=== PATIENT | male | born 1980 | race Hispanic/Latino ===

== ENCOUNTER 2019-01-25 13:00 | Emergency (ER) | payer BC, OTHER ==
[2019-01-25] MEDS ORDERED: LIDOCAINE 1% MPF 5 ML VIAL ONE (13:48)
[2019-01-25] MEDS ORDERED: TETANUS & DIPHTHERIA TOX,ADULT 0.5 ML VIAL ONE (13:49)
[2019-01-25] MEDS ORDERED: HYDROCODONE/APAP 5/325 MG TAB ONE (13:49)
--- NOTE | 2019-01-25 14:29 | ER ---
Nurse's Notes [facility] Name: Orlando Peralta Age: 38 yrs Sex: Male : 1980 Arrival Date: 01/25/2019 Time: 13:01 Bed 13 Private MD: Diagnosis: Phlegmon of back Presentation: 01/25 13:02 Presenting complaint: Patient states: Abscess on back x 3 months. Transition of care: jl7 patient was not received from another setting of care. Onset of symptoms was November 2018. Risk Assessment: Do you want to hurt yourself or someone else? Patient reports no desire to harm self or others. Initial Sepsis Screen: Does the patient meet any 2 criteria? No. Patient's initial sepsis screen is negative. Does the patient have a suspected source of infection? No. Patient's initial sepsis screen is negative. Care prior to arrival: None. 13:02 Method Of Arrival: Ambulatory [facility] 13:02 Acuity: JANUSZ 4 jl7 Triage Assessment: 13:03 General: Appears in no apparent distress. uncomfortable, Behavior is calm, cooperative, jl7 appropriate for age. Pain: Complains of pain in back Pain currently is 10 out of 10 on a pain scale. Historical: - Allergies: 13:03 No Known Allergies; jl7 - Home Meds: 13:03 None [Active]; jl7 - PMHx: 13:03 None; jl7 - PSHx: 13:03 cranium 1998; jl7 - Immunization history:: Adult Immunizations not up to date. - Social history:: Smoking status: Patient/guardian denies using tobacco. - Ebola Screening: : No symptoms or risks identified at this time. Screenin:45 Abuse screen: Denies threats or abuse. Denies injuries from another. Nutritional aj1 screening: No deficits noted. Tuberculosis screening: No symptoms or risk factors identified. Fall Risk None identified. Assessment: 13:45 General: Appears in no apparent distress. comfortable, Behavior is calm, cooperative, aj1 appropriate for age. Pain: Complains of pain in back. Neuro: Level of Consciousness is awake, alert, obeys commands. Cardiovascular: Patient's skin is warm and dry. Respiratory: Airway is patent Respiratory effort is even, unlabored, Respiratory pattern is regular, symmetrical. GI: No signs and/or symptoms were reported involving the gastrointestinal system. : No signs and/or symptoms were reported regarding the genitourinary system. EENT: No signs and/or symptoms were reported regarding the EENT system. Derm: Abscess located on back. Musculoskeletal: No signs and/or symptoms reported regarding the musculoskeletal system. Circulation, motion, and sensation intact. Vital Signs: 13:03 BP 123 / 75; Pulse 96; Resp 17 S; Temp 98.6(O); Pulse Ox 100% on R/A; Weight 127.01 kg jl7 (R); Height 5 ft. 10 in. (177.80 cm) (R); Pain 10/10; 13:03 Body Mass Index 40.18 (127.01 kg, 177.80 cm) jl7 ED Course: 13:01 Patient arrived in ED. as 13:02 Triage completed. jl7 13:03 Arm band placed on right wrist. jl7 13:04 Maxime Tsai NP is PHCP. pm1 13:04 Tyrone Magaña MD is Attending Physician. pm1 13:24 Kathi Alba RN is Primary Nurse. aj1 13:45 No provider procedures requiring assistance completed. aj1 13:51 Wound care: I AND D SETUP. mh5 13:52 Patient has correct armband on for positive identification. Bed in low position. Pulse mh5 ox on. NIBP on. 15:40 Patient did not have IV access during this emergency room visit. 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 Exp: aj1 07/17/2020. Lot #: [id number]. } Route: IM; Site: right deltoid; 14:48 Follow up: Response: No adverse reaction aj1 13:51 Drug: [place] 5 mg-325 mg 1 tabs Route: PO; aj1 14:48 Follow up: Response: No adverse reaction; RASS: Alert and Calm (0) aj1 14:00 Drug: Lidocaine (1 %) 5 ml {Note: administered by Brennan Tsai NP.} Volume: 5 ml; Route: aj1 Infiltration; 14:48 Follow up: Response: No adverse reaction aj Outcome: 14:28 Discharge ordered by . pm1 15:41 Discharged to home ambulatory, with family. iw 15:41 Condition: good 15:41 Discharge instructions given to patient, family, Instructed on discharge instructions, follow up and referral plans. medication usage, Demonstrated understanding of instructions, follow-up care, medications, Prescriptions given X 2. 15:41 Patient left the ED. iw Signatures: Kathi Alba, RN RN aj1 Carmen Holguin Irene, RN RN iw Maxime Tsai, OUTBOARD MOTOR TESTER OUTBOARD MOTOR TESTER pm1 Elisa Holguin 5 Patricio Renee RN RN jl7
--- NOTE | 2019-01-25 14:29 | EDPHYS ---
Physician Documentation [facility] Name: Orlando Peralta Age: 38 yrs Sex: Male : 1980 Arrival Date: 01/25/2019 Time: 13:01 Bed 13 Private MD: ED Physician Tyrone Magaña HPI: 01/25 14:06 This 38 yrs old Male presents to ER via Ambulatory with complaints of lump on pm1 back. 14:06 the patient presents with a swollen area of the back. Description: raised. pm1 14:06 Onset: The symptoms/episode began/occurred 3 month(s) ago, and became worse yesterday. pm1 Possible cause(s): unknown. Associated signs and symptoms: Pertinent negatives: discharge, drainage, fever. Modifying factors: the symptoms are alleviated by nothing, the symptoms are aggravated by touching. Severity of symptoms: in the emergency department the symptoms are actually worse. Has had the abscess drained in the past and it came out like cottage cheese. Possibly sebaceous cyst. The patient has not recently seen a physician. Historical: - Allergies: 13:03 No Known Allergies; jl7 - Home Meds: 13:03 None [Active]; jl7 - PMHx: 13:03 None; jl7 - PSHx: 13:03 cranium 1997; jl7 - Immunization history:: Adult Immunizations not up to date. - Social history:: Smoking status: Patient/guardian denies using tobacco. - Ebola Screening: : No symptoms or risks identified at this time. ROS: 14:06 Constitutional: Negative for fever, chills, and weight loss, Neck: Negative for injury, pm1 pain, and swelling, Cardiovascular: Negative for chest pain, palpitations, and edema, Respiratory: Negative for shortness of breath, cough, wheezing, and pleuritic chest pain, Abdomen/GI: Negative for abdominal pain, nausea, vomiting, diarrhea, and constipation, Back: Negative for injury and pain, MS/Extremity: Negative for injury and deformity. 14:06 Neuro: Negative for headache, weakness, numbness, tingling, and seizure. 14:06 Skin: Positive for abscess, of the back. Exam: 14:06 Constitutional: This is a well developed, well nourished patient who is awake, alert, pm1 and in no acute distress. Head/Face: Normocephalic, atraumatic. 14:06 Neck: Trachea midline, no thyromegaly or masses palpated, and no cervical pm1 lymphadenopathy. Supple, full range of motion without nuchal rigidity, or vertebral point tenderness. No Meningismus. Chest/axilla: Normal chest wall appearance and motion. Nontender with no deformity. No lesions are appreciated. Cardiovascular: Regular rate and rhythm with a normal S1 and S2. No gallops, murmurs, or rubs. Normal PMI, no JVD. No pulse deficits. Respiratory: Lungs have equal breath sounds bilaterally, clear to auscultation and percussion. No rales, rhonchi or wheezes noted. No increased work of breathing, no retractions or nasal flaring. Abdomen/GI: Soft, non-tender, with normal bowel sounds. No distension or tympany. No guarding or rebound. No evidence of tenderness throughout. 14:06 Back: ROM is normal, normal spinal alignment noted. 14:06 Skin: Appearance: normal except for affected area, cellulitis, is not appreciated, phlegmon 2 cm diameter to right side of upper back. 14:06 Neuro: Orientation: is normal, Motor: is normal, moves all fours, Gait: is steady, at a normal pace, without difficulty. Vital Signs: 13:03 BP 123 / 75; Pulse 96; Resp 17 S; Temp 98.6(O); Pulse Ox 100% on R/A; Weight 127.01 kg jl7 (R); Height 5 ft. 10 in. (177.80 cm) (R); Pain 10/10; 13:03 Body Mass Index 40.18 (127.01 kg, 177.80 cm) jl7 MDM: 13:05 Patient medically screened. ibeth 13:05 Patient medically screened. [facility] 14:24 Data reviewed: vital signs. Data interpreted: Pulse oximetry: on room air is 100 %. pm1 Interpretation: normal. 14:24 ED course: Area cleansed with Betadine and lidocaine injected into area. Needle pm1 aspiration along phlegmon resulted in no purulent drainage. Incision and drainage is not indicated. Will discharge the patient home with antibiotics and referral to general surgeon. 14:24 Counseling: I had a detailed discussion with the patient and/or guardian regarding: the pm1 historical points, exam findings, and any diagnostic results supporting the discharge/admit diagnosis, the need for outpatient follow up, to return to the emergency department if symptoms worsen or persist or if there are any questions or concerns that arise at home. 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 Exp: aj1 07/17/2020. Lot #: [id number]. } Route: IM; Site: right deltoid; 14:48 Follow up: Response: No adverse reaction aj1 13:51 Drug: [place] 5 mg-325 mg 1 tabs Route: PO; aj1 14:48 Follow up: Response: No adverse reaction; RASS: Alert and Calm (0) aj 14:00 Drug: Lidocaine (1 %) 5 ml {Note: administered by Brennan Tsai NP.} Volume: 5 ml; Route: aj1 Infiltration; 14:48 Follow up: Response: No adverse reaction aj Disposition: 01/26 10:31 Co-signature as Attending Physician, Tyrone Magaña MD I agree with the assessment and ibeth plan of care. Disposition: 01/25/19 14:28 Discharged to Home. Impression: Phlegmon of back. - Condition is Stable. - Discharge Instructions: Cellulitis, Adult. - Prescriptions for Tylenol- Codeine #3 300-30 mg Oral Tablet - take 2 tablets by ORAL route every 6 hours As needed; 20 tablet. Bactrim DS 800- 160 mg Oral Tablet - take 1 tablet by ORAL route every 12 hours for 10 days; 20 tablet. - Work release form, Medication Reconciliation Form, Thank You Letter, Antibiotic Education, Prescription Opioid Use form. - Follow up: Emergency Department; When: As needed; Reason: Worsening of condition. Follow up: Private Physician; When: 2 - 3 days; Reason: Recheck today's complaints, Continuance of care, Re-evaluation by your physician. - Problem is new. - Symptoms have improved. Signatures: Kathi Alba RN RN aj1 Tyrone Magaña MD MD cha Williams, Irene, RN RN iw Marinas, Patrick, NP SENIOR MECHANICAL ENGINEER pm1 Patricio Renee RN RN jl7 Corrections: (The following items were deleted from the chart) 01/25 15:41 14:28 01/25/2019 14:28 Discharged to Home. Impression: Phlegmon of back. Condition is iw Stable. Forms are Medication Reconciliation Form, Thank You Letter, Antibiotic Education, Prescription Opioid Use. Follow up: Emergency Department; When: As needed; Reason: Worsening of condition. Follow up: Private Physician; When: 2 - 3 days; Reason: Recheck today's complaints, Continuance of care, Re-evaluation by your physician. Problem is new. Symptoms have improved. pm1
[2019-01-25 15:52] VITALS: BP 123/75; TEMP 98.6; O2SAT 100
== END 2019-01-25 15:41 | disposition home or self-care (01) ==
LOC: ER 13:00
DX: L02.212 Cutaneous abscess of back [any part, except buttock and flank] (principal); Z23 Encounter for immunization
CPT/HCPCS: 90471; 90714; 99284

== ENCOUNTER 2019-01-30 13:04 | Day surgery (SDC) | payer BC ==
[2019-01-30 13:22] LABS: Absolute Lymphocytes (CBC) 0.9 K/uL (0.7-4.9); Basophils % 1.1 % (0-1.3); Hematocrit 45.8 % (39.6-49.0); Lymphocytes % 17.6 % (15.3-44.8); MPV 8.7 fL (7.6-11.3); RBC Red Blood Cell Count 5.28 M/uL (4.33-5.43)
[2019-01-30] MEDS ORDERED: Ringers Lactate 1,000 ML IV ONE (13:33)
[2019-01-30 13:36] LABS: Potassium 4.5 mmol/L (3.5-5.1)
[2019-01-30] MEDS: CEFAZOLIN/SWI 1gm 1 GM/10 ML SYR ONE ×3 (14:03→14:23)
[2019-01-30] MEDS ORDERED: propofoL 200 MG/20 ML VIAL IV ONE (14:16)
[2019-01-30] MEDS ORDERED: LIDOCAINE 1% MPF 2 ML AMPULE ONE (14:16)
[2019-01-30] MEDS ORDERED: FENTANYL CITR 100 MCG/2 ML ONE (14:19)
--- NOTE | 2019-01-30 14:42 | P.BOP ---
Preoperative diagnosis: infected back subq mass with cellulitis and abscess Postoperative diagnosis: same Primary procedure: Excisional biopsy of infected back subq mass with abscess drainage Estimated blood loss: <10cc Specimen: infected back subq mass Findings: infected back subq mass with abscess Anesthesia: General Complications: None Drain(s): Other (wet to dry NS) Transferred to: Recovery Room Condition: Good
[2019-01-30] MEDS ORDERED: ONDANSETRON 4 MG/2 ML VIAL ONE (14:50)
[2019-01-30] MEDS ORDERED: HYDROCODONE/APAP 7.5/325 MG TAB ONE (15:29)
[2019-01-30 15:55] VITALS: BP 144/77; TEMP 98.3; O2SAT 98
--- NOTE | 2019-01-31 01:07 | OP ---
Date of Procedure: 01/30/2019 Surgeon: Sánchez Holguin MD Preoperative Diagnosis: Infected back subcutaneous mass with cellulitis and abscess. Postoperative Diagnosis: Infected back subcutaneous mass with cellulitis and abscess. Procedure Performed: Excisional biopsy of infected back subcutaneous mass with abscess drainage. Anesthesia: General plus local. Packing: Wet-to-dry. Indications: This is the case of a 38-year-old patient, who comes to us with a large mass in the [place] k with erythema, redness, fluctuance consistent with cellulitis and abscess. The benefits, alternati ves, and risks of excision were fully explained, which include, but are not limited to infection, ble eding. The patient understood signed the consent. Description Of Procedure: Patient was brought to the operating room, placed in supine position. Ane sthesia was done without complication. The patient was placed in lateral decubitus position with pro per protection. The area of concern was previously marked by me and the patient. A time-out was coco led. An incision was made on the skin to include the necrotic devitalized tissue. Since pus was com ing through the area, we proceeded to do a culture in that area after we made an incision. The mass was completely excised, abscess was drained with multiple loculations. Hemostasis was obtained and t he area was packed with wet-to-dry dressing. Patient tolerated the procedure well. Patient was sent to recovery in sta ble condition. SANTHOSH/COLLEEN Voice ID: [id number] Report ID: [id number]
--- NOTE | 2019-01-31 01:13 | DS ---
Date of Discharge: 01/30/2019 Preoperative Diagnosis: Infected back subcutaneous mass with abscess and cellulitis. Postoperative Diagnosis: Infected back subcutaneous mass with abscess and cellulitis. Disposition: Home. Activity: As tolerated. No heavy lifting. Followup: Follow up in my office in 1 week. Call for appointment, [phone]. Keep the area dry unti l tomorrow, then may shower with the dressings off, and then pack the area with wet-to-dry dressings. Medications: Include, Tylenol No. 3 q.4 hours p.r.n. pain. Patient will resume Bactrim. We are goi ng to give him also a prescription for normal saline. SANTHOSH/COLLEEN Voice ID: [id number] Report ID: [id number]
== END 2019-01-30 16:04 | disposition home or self-care (01) ==
LOC: OR 13:04
PROVIDERS: ATTEND Surgery
PROC: 0JB70ZZ Excision of Back Subcutaneous Tissue and Fascia, Open Approach (ICD-10-PCS; principal; 2019-01-30 14:30)
DX: L72.0 Epidermal cyst (principal); L02.212 Cutaneous abscess of back [any part, except buttock and flank]; L03.312 Cellulitis of back [any part except buttock and flank]; Z82.49 Family history of ischemic heart disease and other diseases of the circulatory system
CPT/HCPCS: 87070; 85025; 80048; 36415; 87205; 88304; 87075; 11406; J2704; J3010; J2001; J0690; J7120; J2405; 88305

== ENCOUNTER 2019-01-31 18:49 | Emergency (ER) | payer BC ==
[2019-01-31] MEDS ORDERED: SILVER NITRATE 1 APPL TOP ONE ×2 (19:42→19:44)
[2019-01-31] MEDS ORDERED: SILVER SULFADIAZINE 1% 25 GM TOP ONE (19:42)
--- NOTE | 2019-01-31 20:17 | ER ---
Nurse's Notes [facility] Name: Orlando Peralta Age: 38 yrs Sex: Male : 1980 Arrival Date: 01/31/2019 Time: 18:52 Bed 25 Private MD: Sarath Hall R Diagnosis: Sebaceous cyst-site removal, bleeding, cauterized and opacked Presentation: 01/31 18:53 Presenting complaint: Patient states: He had an I\T\D done of his back yesterday, today aj1 while he was in the shower his drsg fell off and his not been able to control the bleeding since. Transition of care: patient was not received from another setting of care. Onset of symptoms was January 31, 2019. Risk Assessment: Do you want to hurt yourself or someone else? Patient reports no desire to harm self or others. Initial Sepsis Screen: Does the patient meet any 2 criteria? No. Patient's initial sepsis screen is negative. Does the patient have a suspected source of infection? No. Patient's initial sepsis screen is negative. Care prior to arrival: None. 18:53 Method Of Arrival: Ambulatory aj1 18:53 Acuity: JANUSZ 4 aj1 Triage Assessment: 19:08 General: Appears in no apparent distress. comfortable, Behavior is calm, cooperative, aj1 appropriate for age. Pain: Complains of pain in back. Neuro: Level of Consciousness is awake, alert, obeys commands. Cardiovascular: Patient's skin is warm and dry. Respiratory: Airway is patent Respiratory effort is even, unlabored, Respiratory pattern is regular, symmetrical. Historical: - Allergies: 19:08 No Known Allergies; aj1 - Home Meds: 19:08 Tylenol #3 Oral [Active]; Bactrim DS Oral [Active]; aj1 - PMHx: 19:08 None; aj1 - Immunization history:: Adult Immunizations up to date. - Social history:: Smoking status: Patient/guardian denies using tobacco. - Ebola Screening: : Patient denies travel to an Ebola-affected area in the 21 days before illness onset. - Family history:: not pertinent. Screenin:20 Abuse screen: Denies threats or abuse. Denies injuries from another. Nutritional rr5 screening: No deficits noted. Tuberculosis screening: No symptoms or risk factors identified. Fall Risk None identified. Total Rader Fall Scale indicates No Risk (0-24 pts). Assessment: 19:20 General: Appears in no apparent distress. comfortable, Behavior is calm, cooperative, rr5 appropriate for age. Pain: Complains of pain in thoracic area Pain does not radiate. Pain currently is 2 out of 10 on a pain scale. Quality of pain is described as aching, Pain began 1 day ago. Is intermittent. Neuro: Level of Consciousness is awake, alert, obeys commands, Oriented to person, place, time, situation, Appropriate for age. Cardiovascular: Capillary refill < 3 seconds Patient's skin is warm and dry. Respiratory: Airway is patent Respiratory effort is even, unlabored, Respiratory pattern is regular, symmetrical. GI: No signs and/or symptoms were reported involving the gastrointestinal system. : No signs and/or symptoms were reported regarding the genitourinary system. EENT: No signs and/or symptoms were reported regarding the EENT system. Derm: Wound noted thoracic area Wound is post I and D yesterday open wound approximate size 6cm round in size. 19:20 Musculoskeletal: Circulation, motion, and sensation intact. Capillary refill < 3 rr5 seconds. 20:38 Reassessment: Patient appears in no apparent distress at this time. Patient is alert, rr5 oriented x 3, equal unlabored respirations, skin warm/dry/pink. discharge instruction given and explained without complaints made. Patient states feeling better. Patient states symptoms have improved. Vital Signs: 19:08 BP 117 / 80; Pulse 89; Resp 18; Temp 98.1; Pulse Ox 98% on R/A; Weight 125.65 kg (R); aj1 Height 5 ft. 10 in. (177.80 cm) (R); Pain 2/10; 20:35 BP 112 / 75; Pulse 80; Resp 16; Temp 97.9; Pulse Ox 99% ; rr5 19:08 Body Mass Index 39.74 (125.65 kg, 177.80 cm) [facility] ED Course: 18:52 Patient arrived in ED. mr 18:52 Sarath Hall MD is Private Physician. mr 19:07 Triage completed. aj1 19:08 Arm band placed on. aj 19:20 Tyrone Magaña MD is Attending Physician. [facility] 19:20 Patient has correct armband on for positive identification. Bed in low position. Call rr5 light in reach. 19:21 Manan Kelly, RN is Primary Nurse. rr5 19:45 wound cleaning and dressing silver nitrite and Surgicel applied by ED provider. rr5 pressure dressing applied. 20:16 Sánchez Holguin MD is Referral Physician. ibeth 20:40 Patient did not have IV access during this emergency room visit. rr5 Administered Medications: 20:32 Drug: [place] 10 mg-325 mg 1 tabs {Note: rass 0.} Route: PO; rr5 20:41 Follow up: Response: Medication administered at discharge. rr5 20:42 Follow up: Response: RASS: Alert and Calm (0) rr5 20:32 Drug: KeFLEX 500 mg Route: PO; rr5 20:42 Follow up: Response: Medication administered at discharge. rr5 Outcome: 20:17 Discharge ordered by . ibeth 20:40 Discharged to home ambulatory, with family. rr5 20:40 Condition: stable 20:40 Discharge instructions given to patient, family, Instructed on discharge instructions, follow up and referral plans. medication usage, Demonstrated understanding of instructions, follow-up care, medications, wound care, Prescriptions given X 1. 20:43 Patient left the ED. rr5 Signatures: Kathi Alba RN RN aj1 Tyrone Magaña MD MD cha Rivera, Mary mr Manan Kelly, RN RN rr5
--- NOTE | 2019-01-31 20:18 | EDPHYS ---
Physician Documentation [facility] Name: Orlando Peralta Age: 38 yrs Sex: Male : 1980 Arrival Date: 01/31/2019 Time: 18:52 Bed 25 Private MD: Sarath Hall R ED Physician Tyrone Magaña HPI: 01/31 20:14 This 38 yrs old Male presents to ER via Ambulatory with complaints of Surgical ibeth site bleeding. 20:14 The patient has a laceration related to: surgical wound x 1 day. Onset: The ibeth symptoms/episode began/occurred yesterday. Associated signs and symptoms: The patient has no apparent associated signs or symptoms. The patient has not experienced similar symptoms in the past. sebaceous cyst, removed x 1 day ago. Historical: - Allergies: 19:08 No Known Allergies; aj1 - Home Meds: 19:08 Tylenol #3 Oral [Active]; Bactrim DS Oral [Active]; aj1 - PMHx: 19:08 None; aj1 - Immunization history:: Adult Immunizations up to date. - Social history:: Smoking status: Patient/guardian denies using tobacco. - Ebola Screening: : Patient denies travel to an Ebola-affected area in the 21 days before illness onset. - Family history:: not pertinent. ROS: 20:14 Constitutional: Negative for fever, chills, and weight loss, Eyes: Negative for injury, ibeth pain, redness, and discharge, ENT: Negative for injury, pain, and discharge, Neck: Negative for injury, pain, and swelling, Cardiovascular: Negative for chest pain, palpitations, and edema, Respiratory: Negative for shortness of breath, cough, wheezing, and pleuritic chest pain, Abdomen/GI: Negative for abdominal pain, nausea, vomiting, diarrhea, and constipation, : Negative for injury, bleeding, discharge, and swelling, MS/Extremity: Negative for injury and deformity, Skin: Negative for injury, rash, and discoloration, Neuro: Negative for headache, weakness, numbness, tingling, and seizure, Psych: Negative for depression, anxiety, suicide ideation, homicidal ideation, and hallucinations, Allergy/Immunology: Negative for hives, rash, and allergies, Endocrine: Negative for neck swelling, polydipsia, polyuria, polyphagia, and marked weight changes, Hematologic/Lymphatic: Negative for swollen nodes, abnormal bleeding, and unusual bruising. 20:14 Back: Positive for pain at rest, of the left subscapular area. Exam: 20:14 Constitutional: This is a well developed, well nourished patient who is awake, alert, ibeth and in no acute distress. Head/Face: Normocephalic, atraumatic. Eyes: Pupils equal round and reactive to light, extra-ocular motions intact. Lids and lashes normal. Conjunctiva and sclera are non-icteric and not injected. Cornea within normal limits. Periorbital areas with no swelling, redness, or edema. ENT: Nares patent. No nasal discharge, no septal abnormalities noted. Tympanic membranes are normal and external auditory canals are clear. Oropharynx with no redness, swelling, or masses, exudates, or evidence of obstruction, uvula midline. Mucous membranes moist. Neck: Trachea midline, no thyromegaly or masses palpated, and no cervical lymphadenopathy. Supple, full range of motion without nuchal rigidity, or vertebral point tenderness. No Meningismus. Chest/axilla: Normal chest wall appearance and motion. Nontender with no deformity. No lesions are appreciated. Cardiovascular: Regular rate and rhythm with a normal S1 and S2. No gallops, murmurs, or rubs. Normal PMI, no JVD. No pulse deficits. Respiratory: Lungs have equal breath sounds bilaterally, clear to auscultation and percussion. No rales, rhonchi or wheezes noted. No increased work of breathing, no retractions or nasal flaring. Abdomen/GI: Soft, non-tender, with normal bowel sounds. No distension or tympany. No guarding or rebound. No evidence of tenderness throughout. Skin: Warm, dry with normal turgor. Normal color with no rashes, no lesions, and no evidence of cellulitis. MS/ Extremity: Pulses equal, no cyanosis. Neurovascular intact. Full, normal range of motion. Neuro: Awake and alert, GCS 15, oriented to person, place, time, and situation. Cranial nerves II-XII grossly intact. Motor strength 5/5 in all extremities. Sensory grossly intact. Cerebellar exam normal. Normal gait. Psych: Awake, alert, with orientation to person, place and time. Behavior, mood, and affect are within normal limits. 20:14 Back: pain, that is mild, ROM is normal, normal spinal alignment noted, CVA tenderness, is absent, muscle spasm, is not present. Vital Signs: 19:08 BP 117 / 80; Pulse 89; Resp 18; Temp 98.1; Pulse Ox 98% on R/A; Weight 125.65 kg (R); aj1 Height 5 ft. 10 in. (177.80 cm) (R); Pain 2/10; 20:35 BP 112 / 75; Pulse 80; Resp 16; Temp 97.9; Pulse Ox 99% ; rr5 19:08 Body Mass Index 39.74 (125.65 kg, 177.80 cm) aj1 MDM: 19:20 Patient medically screened. [facility] 20:14 Data reviewed: vital signs, nurses notes. [facility] 01/31 20:13 Order name: Wound Care; Complete Time: 20:34 [facility] 01/31 20:13 Order name: Wound dressing: silver nitrite sticks, surgicel; Complete Time: 20:34 [facility] Administered Medications: 20:32 Drug: [place] 10 mg-325 mg 1 tabs {Note: rass 0.} Route: PO; rr5 20:41 Follow up: Response: Medication administered at discharge. rr5 20:42 Follow up: Response: RASS: Alert and Calm (0) rr5 20:32 Drug: KeFLEX 500 mg Route: PO; rr5 20:42 Follow up: Response: Medication administered at discharge. rr5 Disposition: 01/31/19 20:17 Discharged to Home. Impression: Sebaceous cyst - site removal, bleeding, cauterized and opacked. - Condition is Stable. - Discharge Instructions: Excision of Skin Lesions, Excision of Skin Lesions, Care After. - Prescriptions for Keflex 500 mg Oral Capsule - take 1 capsule by ORAL route every 6 hours for 7 days; 28 capsule. - Medication Reconciliation Form, Thank You Letter, Antibiotic Education, Prescription Opioid Use form. - Follow up: Sánchez Holguin MD; When: 1 - 2 days; Reason: Recheck today's complaints, Continuance of care, Re-evaluation by your physician. - Problem is new. - Symptoms have improved. Signatures: Kathi Alba RN RN aj1 Tyrone Magaña MD MD cha Roque, Raymond RN RN rr5 Corrections: (The following items were deleted from the chart) 20:43 20:17 01/31/2019 20:17 Discharged to Home. Impression: Sebaceous cyst - site removal, rr5 bleeding, cauterized and opacked. Condition is Stable. Forms are Medication Reconciliation Form, Thank You Letter, Antibiotic Education, Prescription Opioid Use. Follow up: Sánchez Holguin; When: 1 - 2 days; Reason: Recheck today's complaints, Continuance of care, Re-evaluation by your physician. Problem is new. Symptoms have improved. ibeth
[2019-01-31] MEDS ORDERED: CEPHALEXIN 250 MG CAP ONE (20:26)
[2019-01-31] MEDS ORDERED: HYDROCODONE/APAP 10/325 TAB ONE (20:26)
[2019-01-31 21:39] VITALS: BP 112/75; TEMP 97.9; O2SAT 99
== END 2019-01-31 20:43 | disposition home or self-care (01) ==
LOC: ER 18:49
DX: T81.89XA Other complications of procedures, not elsewhere classified, initial encounter (principal); S21.202A Unspecified open wound of left back wall of thorax without penetration into thoracic cavity, initial encounter; Y83.8 Other surgical procedures as the cause of abnormal reaction of the patient, or of later complication, without mention of misadventure at the time of the procedure; Y92.9 Unspecified place or not applicable; Y93.89 Activity, other specified; Z48.01 Encounter for change or removal of surgical wound dressing
CPT/HCPCS: 99283

== ENCOUNTER 2021-10-06 18:25 | Emergency (ER) | payer BC, SELFPAY ==
[2021-10-06] MEDS ORDERED: ACETAMINOPHEN 500 MG TAB ONE (19:33)
[2021-10-06] MEDS ORDERED: NA CHLORIDE 0.9% 1,000 ML ONE ×2 (19:46→21:37)
--- NOTE | 2021-10-06 19:56 | RAD REPORT ---
EXAM DESCRIPTION: RAD - Chest Single View - 10/06/2021 7:34 pm CLINICAL HISTORY: SOB, cough and congestion, hypertension COMPARISON: Portable 05/28/2015 TECHNIQUE: AP portable chest image was obtained 10/06/2021 7:34 pm . FINDINGS: Dense masslike consolidation is seen in the right upper lobe perihilar region. Airspace op acities extend out into the periphery of the right upper lobe. In the acute clinical setting this is most likely pneumonia. Left lung field and lower right lung field is clear. Heart and vasculature are normal. No measurable pleural effusion and no pneumothorax. No acute bony abnormality seen. No acute aortic findings suspected. IMPRESSION: Right upper lobe central consolidation most likely an acute bacterial pneumonia. Follow-up is needed to assure complete clearing and no underlying obstructing mass.
[2021-10-06] MEDS ORDERED: CEFTRIAXONE 1000 MG/VIAL ONE (20:13)
[2021-10-06] MEDS ORDERED: NA CHLORIDE 0.9% 250 ML ONE (20:13)
[2021-10-06] MEDS ORDERED: AZITHROMYCIN 500 MG INJ IVPB ONE (20:13)
[2021-10-06 20:16] LABS: Absolute Lymphocytes (CBC) 0.5 K/uL (0.7-4.9); Hematocrit 41.1 % (39.6-49.0); MCV 86.8 fL (80-100); Protime INR 0.96; RBC Red Blood Cell Count 4.73 M/uL (4.33-5.43)
[2021-10-06] MEDS ORDERED: IBUPROFEN 400 MG TAB ONE (20:31)
[2021-10-06 20:41] LABS: Albumin 3.6 g/dL (3.4-5.0); Bilirubin Direct 0.1 mg/dL (0-0.2); Bilirubin Total 0.3 mg/dL (0.2-1.0); Magnesium 1.5 mg/dL (1.8-2.4); Potassium 3.8 mmol/L (3.5-5.1); Protein, Total 7.5 g/dL (6.4-8.2); Troponin High Sensitivity 8.2 pg/mL (<58.9)
[2021-10-06] MEDS ORDERED: MAGNESIUM SULFATE 1 gm IVPB 1 GM/100 ML BAG IV ONE (21:37)
--- NOTE | 2021-10-06 21:45 | RAD REPORT ---
EXAM DESCRIPTION: CT - Chest For Pe Angio - 10/06/2021 9:20 pm CLINICAL HISTORY: shortness of breath COMPARISON: Chest Single View dated 10/06/2021 TECHNIQUE: Dynamically enhanced 2 mm thick images of the chest were obtained during administration o f approximately 150mL Isovue 370 IV contrast. Coronal and oblique MIP reconstruction images were gene rated and reviewed. Exam utilizes a protocol to evaluate the pulmonary arterial tree. All CT scans are performed using dose optimization technique as appropriate and may include automated exposure control or mA/KV adjustment according to patient size. FINDINGS: Exam is nondiagnostic for evaluation of pulmonary emboli. Two separate attempts at pulmona ry arterial tree opacification failed due to a currently undetermined technical issue. The aorta was opacified and shows no suspicious finding. Pulmonary veins are unremarkable. No cardiom egaly or pericardial effusion. Dense consolidation is present in the central aspect of the right upper lobe with air bronchograms. A irspace opacities are scattered throughout the remainder of the right upper lobe. No cavitation. Unde rlying mass is unlikely. Patchy alveolar opacities are present to a much lesser degree in the right l ower lobe. Right middle lobe is clear of any significant finding. No significant left lung field find ing. No endobronchial lesion. No pleural effusion or pleural thickening. Nonspecific mediastinal lymph nodes are present likely reactive. No chest wall masses or abnormal axi llary lymphadenopathy. IMPRESSION: Due to technical malfunction on 2 separate attempts, the exam is non diagnostic for eval uating pulmonary emboli. Large consolidated pneumonia filling most of the right upper lobe. No cavitation is present and no un derlying mass lesion suspected. Much less prominent patchy alveolar pneumonia changes are seen in the right lower lobe.
[2021-10-06 22:17] LABS: Urine Blood 1+ (Negative); Urine Glucose Negative (Negative); Urine Protein Negative (Negative); Urine Specific Gravity 1.015 (1.005-1.030)
[2021-10-06 23:14] LABS: Urine Bacteria 20-50 /HPF (<20); Urine Mucus 1+ /HPF (None Seen)
--- NOTE | 2021-10-06 23:21 | EDPHYS ---
Physician Documentation [facility] Name: Orlando Peralta Age: 41 yrs Sex: Male : 1980 Arrival Date: 10/06/2021 Time: 18:29 Bed 19 Private MD: ED Physician Ac Wilkes HPI: 10/06 18:55 This 41 yrs old Male presents to ER via Wheelchair with complaints of cp Shortness Of Breath. 18:55 The patient has shortness of breath at rest. Onset: The symptoms/episode began/occurred cp 3 day(s) ago, and became worse today. 18:55 Duration: The symptoms are continuous, and are steadily getting worse. The patient's cp shortness of breath is aggravated by light activity. Associated signs and symptoms: Pertinent positives: chest pain, productive cough, fever, hemoptysis, Pertinent negatives: vomiting. 18:55 Severity of symptoms: in the emergency department the symptoms are unchanged despite cp home interventions. Historical: - Allergies: 18:34 No Known Allergies; ap3 - PMHx: 18:34 Diabetes mellitus; Hypertensive disorder; ap3 - Immunization history:: Client reports receiving the 2nd dose of the Covid vaccine. - Social history:: Smoking status: Patient reports the use of cigarette tobacco products, smokes one-half pack cigarettes per day. ROS: 19:00 Constitutional: Positive for body aches, fever, Negative for poor PO intake. cp 19:00 Eyes: Negative for injury, pain, redness, and discharge. cp 19:00 ENT: Positive for sore throat, Negative for drainage from ear(s), ear pain. 19:00 Cardiovascular: Positive for chest pain, edema. 19:00 Respiratory: Positive for cough, hemoptysis, shortness of breath, at rest. Negative for wheezing. 19:00 Abdomen/GI: Negative for vomiting, diarrhea, constipation, anorexia. 19:00 : Negative for urinary symptoms. 19:00 Neuro: Negative for altered mental status, headache, syncope, weakness. 19:00 All other systems are negative. Exam: 19:05 Constitutional: The patient appears in no acute distress, alert, awake, cp non-diaphoretic, non-toxic, well developed, well nourished. 19:05 Head/Face: Normocephalic, atraumatic. cp 19:05 Eyes: Periorbital structures: appear normal, Conjunctiva: normal, no exudate, no injection, Sclera: no appreciated abnormality, Lids and lashes: appear normal, bilaterally. 19:05 ENT: External ear(s): are unremarkable, Nose: is normal, Mouth: Lips: moist, Oral mucosa: moist, Posterior pharynx: Airway: no evidence of obstruction, patent, Tonsils: with erythema, no enlargement, no exudate, Uvula: midline, erythema, that is moderate, exudate, is not appreciated. 19:05 Neck: ROM/movement: is normal, is supple, without pain, no range of motions limitations, no meningismus, no nuchal rigidity. 19:05 Chest/axilla: Inspection: normal, Palpation: is normal, no crepitus, no tenderness. 19:05 Cardiovascular: Rate: tachycardic, Rhythm: regular, Edema: ankle edema, that is very mild, JVD: is not appreciated. 19:05 Respiratory: the patient does not display signs of respiratory distress, Respirations: labored breathing, is not present, intercostal retractions, are absent, Breath sounds: bronchial sounds, are heard diffusely, decreased breath sounds, are not appreciated, stridor, is not appreciated, wheezing: is not appreciated. 19:05 Abdomen/GI: Inspection: abdomen appears normal, Bowel sounds: active, all quadrants, Palpation: soft, in all quadrants, mild abdominal tenderness, in the right upper quadrant and left upper quadrant, rebound tenderness, is not appreciated, involuntary guarding, is not appreciated. 19:05 Back: pain, CVA tenderness, is absent. 19:05 Neuro: Orientation: to person, place \\T\\ time. Mentation: is normal, Cerebellar function: is grossly normal, Motor: moves all fours, strength is normal, Sensation: is normal. 19:25 ECG was reviewed by the Attending Physician. cp Vital Signs: 18:32 Pulse 130; Resp 18; Temp 103.7; Pulse Ox 96% ; Weight 118.84 kg; Height 5 ft. 10 in. ap3 (177.80 cm); 18:36 BP 129 / 63; ap3 20:08 Temp 103.1(O); ll3 21:21 BP 127 / 69; Pulse 97; Resp 18; Pulse Ox 90% on R/A; Pain 0/10; fu 21:24 Temp 99.8(O); ll3 22:40 BP 119 / 70; Pulse 101; Resp 17; Pulse Ox 95% on R/A; Pain 0/10; fu 23:25 Temp 99.4(O); fu 18:32 Body Mass Index 37.59 (118.84 kg, 177.80 cm) ap3 MDM: 18:49 Patient medically screened. cp 19:00 Differential diagnosis: CHF exacerbation, Chronic Obstructive Pulmonary Disease cp Myocardial Infarction pneumonia, Pneumothorax pulmonary edema, Pulmonary Embolism Sepsis Unstable Angina. 23:21 Data reviewed: vital signs, nurses notes. jl9 23:21 Counseling: I had a detailed discussion with the patient and/or guardian regarding: jl9 Took over on patient. Patient feeling better and would like to go home. . Counseling: I had a detailed discussion with the patient and/or guardian regarding: the historical points, exam findings, and any diagnostic results supporting the discharge/admit diagnosis, lab results, radiology results, the need for outpatient follow up, to return to the emergency department if symptoms worsen or persist or if there are any questions or concerns that arise at home. 10/06 18:51 Order name: Basic Metabolic Panel; Complete Time: 21:03 10/06 21:03 Interpretation: Normal except: NA 132; GLUC 108. 10/06 18:51 Order name: CBC with Diff; Complete Time: 20:40 cp 10/06 20:40 Interpretation: Normal except: VIKY% 75.2; LYM% 10.0; MN% 14.5; LYMA 0.5. 10/06 18:51 Order name: LFT's; Complete Time: 21:03 10/06 21:03 Interpretation: Normal except: AST 92; ALT 95; ALK 121; GLOB 3.9; A/G 0.9. 10/06 18:51 Order name: Magnesium; Complete Time: 21:03 cp 10/06 21:04 Interpretation: Abnormal: MG 1.5. cp 10/06 18:51 Order name: NT PRO-BNP; Complete Time: 21:03 cp 10/06 18:51 Order name: PT-INR; Complete Time: 20:40 cp 10/06 18:51 Order name: Troponin HS; Complete Time: 21:03 cp 10/06 18:51 Order name: Lactate; Complete Time: 20:40 10/06 20:40 Interpretation: Reviewed. 10/06 18:51 Order name: Procalcitonin; Complete Time: 21:03 10/06 18:51 Order name: Blood Culture Adult (2) 10/06 18:51 Order name: Urine Microscopic Only; Complete Time: 23:17 10/06 19:36 Order name: COVID-19 SARS RT PCR (Document "Date of Onset" if Symptomatic); Complete bb Time: :10/06 19:38 Order name: Influenza Screen (a \\T\\ B); Complete Time: 21:03 10/06 19:38 Order name: Strep; Complete Time: 21:03 10/06 18:51 Order name: XRAY Chest (1 view); Complete Time: 20:10 10/06 20:10 Interpretation: Report review. 10/06 18:51 Order name: EKG; Complete Time: 18:53 10/06 18:51 Order name: Cardiac monitoring; Complete Time: 19:27 10/06 18:51 Order name: EKG - Nurse/Tech; Complete Time: 19:23 10/06 19:38 Order name: CT Chest For PE Angio; Complete Time: 21:47 10/06 20:54 Order name: Throat Culture [facility] 10/06 22:17 Order name: Urine Dipstick-Ancillary; Complete Time: 23:17 [facility] 10/06 23:17 Order name: Urine Culture [facility] 10/06 18:51 Order name: IV Saline Lock; Complete Time: 19:55 10/06 18:51 Order name: Labs collected and sent; Complete Time: 19:55 10/06 18:51 Order name: O2 Per Protocol; Complete Time: 19:27 10/06 18:51 Order name: O2 Sat Monitoring; Complete Time: 19:27 10/06 18:51 Order name: Urine Dipstick-Ancillary (obtain specimen); Complete Time: 22:18 cp EC:25 Rate is 124 beats/min. Rhythm is regular. KS interval is normal. QRS interval is cp normal. QT interval is normal. T waves are Inverted in lead aVR. Interpreted by me. Reviewed by me. Administered Medications: 19:26 Drug: Tylenol 1000 mg Route: PO; ll3 20:00 Drug: NS 0.9% 1000 ml Route: IV; Rate: 1 bolus; Site: right wrist; ll3 22:00 Follow up: Response: No adverse reaction; IV Intake: 1000ml fu 20:20 Drug: Zithromax (azithromycin) 500 mg Route: IVPB; Infused Over: 1 hrs; Site: right ll3 wrist; 21:20 Follow up: Response: No adverse reaction fu 20:20 Drug: Rocephin - (cefTRIAXone) 1 grams Route: IVPB; Infused Over: 30 mins; Site: right ll3 wrist; 20:50 Follow up: Response: No adverse reaction fu 20:26 Drug: Ibuprofen 800 mg Route: PO; ll3 21:30 Follow up: Response: Temperature is decreased fu 21:22 CANCELLED (Physician Discretion): NS 0.9% 1000 ml IV at 75 ml/hr continuous cp 21:39 Drug: Magnesium Sulfate 1 grams Route: IVPB; Infused Over: 1 hrs; Site: left fu antecubital; 22:40 Follow up: Response: No adverse reaction fu 21:40 Drug: NS 0.9% 1000 ml Route: IV; Rate: 1 bolus; Site: right wrist; fu 21:40 Follow up: Response: No adverse reaction; IV Intake: 1000ml fu Disposition: 10/07 21:58 Co-signature as Attending Physician, Ac Wilkes MD I agree with the assessment and kdr plan of care. Disposition Summary: 10/06/21 23:20 Discharge Ordered Location: Home jl9 Condition: Stable jl9 Diagnosis - Pneumonia, unspecified organism jl9 Followup: jl9 - With: Private Physician - When: 1 - 2 days - Reason: Recheck today's complaints, Continuance of care, Re-evaluation by your physician Discharge Instructions: - Discharge Summary Sheet jl9 - Community-Acquired Pneumonia, Adult jl9 Forms: - Medication Reconciliation Form jl9 - Thank You Letter jl9 - Antibiotic Education jl9 - Prescription Opioid Use jl9 Prescriptions: - azithromycin 250 mg Oral tablet - take 2 tablet by ORAL route once daily for 1 day then 1 tablet (250 mg) by oral jl9 route once daily for 4 days; 6 tablet; Refills: 0, Product Selection Permitted Signatures: Dispatcher MedN[facility] HospitalAc Best MD MD kdr Page, Corey, PA PA cp Umadhay, Felix, RN Maddie Ball RN RN ap3 Adithya Anand RN QUANG 3 Juan Samuel9 Corrections: (The following items were deleted from the chart) 10/06 21: 21:22 NS 0.9% 1000 ml IV at 75 ml/hr continuous ordered. cp cp : 18:55 Onset: The symptoms/episode began/occurred yesterday, and became worse today, cp cp
--- NOTE | 2021-10-06 23:21 | ER ---
Nurse's Notes [facility] Name: Orlando Peralta Age: 41 yrs Sex: Male : 1980 Arrival Date: 10/06/2021 Time: 18:29 Bed 19 Private MD: Diagnosis: Pneumonia, unspecified organism Presentation: 10/06 18:32 Chief complaint: Patient states: he has been feeling short of breath for three days, ap3 and has had cough and congestion as well. Coronavirus screen: Client presents with at least one sign or symptom that may indicate coronavirus-19. Ebola Screen: No symptoms or risks identified at this time. Initial Sepsis Screen: Does the patient meet any 2 criteria? Temp <36.0*C (96.8*F)) or > 38.3*C (100.9*F). HR > 90 bpm. Yes Does the patient have a suspected source of infection? Yes: Productive cough/pneumonia. Risk Assessment: Do you want to hurt yourself or someone else? Patient reports no desire to harm self or others. Onset of symptoms was September 30, 2021. 18:32 Method Of Arrival: Wheelchair ap3 18:32 Acuity: JANUSZ 3 ap3 Triage Assessment: 18:35 General: Appears ill, Behavior is cooperative. General: Reports chills for fever for ap3 feeling ill for fatigue for. Pain: Denies pain. Neuro: Level of Consciousness is awake, alert, obeys commands, Oriented to person, place, time. Cardiovascular: Patient's skin is warm and dry. Respiratory: Reports shortness of breath Airway is patent Respiratory effort is even, unlabored, Onset: The symptoms/episode began/occurred gradually, the patient has mild shortness of breath. Historical: - Allergies: 18:34 No Known Allergies; ap3 - PMHx: 18:34 Diabetes mellitus; Hypertensive disorder; ap3 - Immunization history:: Client reports receiving the 2nd dose of the Covid vaccine. - Social history:: Smoking status: Patient reports the use of cigarette tobacco products, smokes one-half pack cigarettes per day. Screenin:36 Abuse screen: Denies threats or abuse. Nutritional screening: No deficits noted. ap3 Tuberculosis screening: No symptoms or risk factors identified. 22:00 Fall Risk None identified. fu Assessment: 18:50 General: Appears distressed, uncomfortable, Behavior is cooperative, anxious, Denies em6 chills. Pain: Complains of pain in right lower quadrant and left lower quadrant Pain does not radiate. Pain currently is 5 out of 10 on a pain scale. Neuro: Jones Agitation-Sedation Scale (RASS): 0 - Alert and Calm Level of Consciousness is awake, alert, obeys commands, Oriented to person, place, time, situation. Cardiovascular: Heart tones present Capillary refill < 3 seconds Patient's skin is warm and dry. Respiratory: Reports shortness of breath at rest Airway is patent Respiratory effort is even, labored, Respiratory pattern is regular, symmetrical, Breath sounds are clear bilaterally. GI: Abdomen is non-distended, Bowel sounds present X 4 quads. Abd is soft and non tender. : No signs and/or symptoms were reported regarding the genitourinary system. EENT: No signs and/or symptoms were reported regarding the EENT system. Derm: No signs and/or symptoms reported regarding the dermatologic system. Musculoskeletal: Circulation, motion, and sensation intact. Range of motion: intact in all extremities, Swelling present in right leg and left leg. 20:00 Reassessment: Patient and/or family updated on plan of care and expected duration. Pain fu level reassessed. Patient is alert, oriented x 3, equal unlabored respirations, skin warm/dry/pink. 21:30 Reassessment: Patient and/or family updated on plan of care and expected duration. Pain fu level reassessed. Patient is alert, oriented x 3, equal unlabored respirations, skin warm/dry/pink. 22:30 Reassessment: Patient and/or family updated on plan of care and expected duration. Pain fu level reassessed. Patient is alert, oriented x 3, equal unlabored respirations, skin warm/dry/pink. Vital Signs: 18:32 Pulse 130; Resp 18; Temp 103.7; Pulse Ox 96% ; Weight 118.84 kg; Height 5 ft. 10 in. ap3 (177.80 cm); 18:36 BP 129 / 63; ap3 20:08 Temp 103.1(O); ll3 21:21 BP 127 / 69; Pulse 97; Resp 18; Pulse Ox 90% on R/A; Pain 0/10; fu 21:24 Temp 99.8(O); ll3 22:40 BP 119 / 70; Pulse 101; Resp 17; Pulse Ox 95% on R/A; Pain 0/10; fu 23:25 Temp 99.4(O); fu 18:32 Body Mass Index 37.59 (118.84 kg, 177.80 cm) ap3 ED Course: 18:29 Patient arrived in ED. ja2 18:34 Triage completed. ap3 18:36 Arm band placed on right wrist. ap3 18:40 Tyrone Lee PA is PHCP. cp 18:40 Ac Wilkes MD is Attending Physician. cp 18:50 Patient has correct armband on for positive identification. Bed in low position. Call em6 light in reach. Pulse ox on. NIBP on. 19:12 Tyrone Nicolas, QUANG is Primary Nurse. fu 19:35 XRAY Chest (1 view) In Process Unspecified. EDMS 19:54 Inserted saline lock: 20 gauge in right wrist, using aseptic technique. Blood collected.zm 19:55 Blood Culture Adult (2) Sent. zm 19:55 Procalcitonin Sent. zm 19:55 Lactate Sent. zm 19:55 Basic Metabolic Panel Sent. zm 19:55 CBC with Diff Sent. zm 19:55 LFT's Sent. zm 19:55 Magnesium Sent. zm 19:55 NT PRO-BNP Sent. zm 19:55 PT-INR Sent. zm 19:55 Troponin HS Sent. zm 20:35 Strep Sent. ds4 20:35 Influenza Screen (a \\T\\ B) Sent. ds4 20:35 COVID-19 SARS RT PCR (Document "Date of Onset" if Symptomatic) Sent. ds4 21:21 CT Chest For PE Angio In Process Unspecified. EDMS 21:35 Inserted saline lock: 20 gauge in left antecubital area, using aseptic technique. fu 21:53 PHCP role handed off by Tyrone Lee PA jl9 21:53 [facility] jl9 23:30 No provider procedures requiring assistance completed. fu 23:30 IV discontinued, bleeding controlled, Pressure dressing applied. fu Administered Medications: 19:26 Drug: Tylenol 1000 mg Route: PO; ll3 20:00 Drug: NS 0.9% 1000 ml Route: IV; Rate: 1 bolus; Site: right wrist; ll3 22:00 Follow up: Response: No adverse reaction; IV Intake: 1000ml fu 20:20 Drug: Zithromax (azithromycin) 500 mg Route: IVPB; Infused Over: 1 hrs; Site: right ll3 wrist; 21:20 Follow up: Response: No adverse reaction fu 20:20 Drug: Rocephin - (cefTRIAXone) 1 grams Route: IVPB; Infused Over: 30 mins; Site: right ll3 wrist; 20:50 Follow up: Response: No adverse reaction fu 20:26 Drug: Ibuprofen 800 mg Route: PO; ll3 21:30 Follow up: Response: Temperature is decreased fu 21:22 CANCELLED (Physician Discretion): NS 0.9% 1000 ml IV at 75 ml/hr continuous cp 21:39 Drug: Magnesium Sulfate 1 grams Route: IVPB; Infused Over: 1 hrs; Site: left fu antecubital; 22:40 Follow up: Response: No adverse reaction fu 21:40 Drug: NS 0.9% 1000 ml Route: IV; Rate: 1 bolus; Site: right wrist; fu 21:40 Follow up: Response: No adverse reaction; IV Intake: 1000ml fu Medication: 18:50 VIS not applicable for this client. em6 Intake: 21:40 IV: 1000ml; Total: 1000ml. fu 22:00 IV: 1000ml; Total: 2000ml. fu Outcome: 23:20 Discharge ordered by . jl9 23:35 Discharged to home ambulatory, with family. fu 23:35 Condition: improved 23:35 Discharge instructions given to patient, Instructed on discharge instructions, follow up and referral plans. Demonstrated understanding of instructions, follow-up care, Prescriptions given X 1. 23:38 Patient left the ED. ld1 Signatures: Dispatcher [employer] EDMS Sreekanth Quiroz ds4 Tyrone Lee PA PA cp Umadhay, Felix, RN RN Maddie Hay RN Natalie Koroma RN RN ld1 Erin Goldsmith Lynsea, RN RN ll3 Paz Holguin John jl9 Megan Holguin RN RN em6 Corrections: (The following items were deleted from the chart) 19:44 18:50 Derm: No signs and/or symptoms reported regarding the dermatologic system. em6 em6 19:44 18:50 Musculoskeletal: Circulation, motion, and sensation intact. Range of motion: em6 intact in all extremities, em6
[2021-10-07 02:16] VITALS: O2SAT 96
[2021-10-07 02:18] VITALS: BP 129/63
[2021-10-07 02:21] VITALS: TEMP 99.8
== END 2021-10-06 23:38 | disposition home or self-care (01) ==
LOC: ER 18:25
DX: J18.9 Pneumonia, unspecified organism (principal); E11.9 Type 2 diabetes mellitus without complications; I10 Essential (primary) hypertension; Z20.822 Contact with and (suspected) exposure to COVID-19; F17.210 Nicotine dependence, cigarettes, uncomplicated
CPT/HCPCS: 36415; 71045; 71275; 80048; 80076; 81003; 81015; 83605; 83735; 83880; 84145; 84484; 85025; 85610; 87040; 87070; 87081; 87086; 87088; 87804; 99284; J0456; J3475; J7030; J7050; Q9967; U0003

== ENCOUNTER 2021-10-07 15:17 | Inpatient (IN) | payer SELFPAY ==
[2021-10-07] MEDS ORDERED: NA CHLORIDE 0.9% 100 ML ONE (15:52)
[2021-10-07] MEDS ORDERED: PIPERACIL/TAZO 3.375 GM VIAL IV ONE (15:52)
[2021-10-07] MEDS ORDERED: NA CHLORIDE 0.9% 1,000 ML ONE (15:53)
[2021-10-07 16:04] LABS: Absolute Lymphocytes (CBC) 0.5 K/uL (0.7-4.9); Hematocrit 41.2 % (39.6-49.0); Lymphocytes % 11.4 % (15.3-44.8); MPV 7.3 fL (7.6-11.3); RBC Red Blood Cell Count 4.79 M/uL (4.33-5.43)
[2021-10-07 16:06] LABS: Protime INR 1.03
[2021-10-07] MEDS ORDERED: ACETAMINOPHEN 500 MG TAB ONE (16:26)
[2021-10-07] MEDS ORDERED: IBUPROFEN 200 MG TAB PO ONE (16:26)
[2021-10-07 16:40] LABS: Potassium 3.7 mmol/L (3.5-5.1)
[2021-10-07 16:41] LABS: Albumin 3.5 g/dL (3.4-5.0); Bilirubin Direct 0.2 mg/dL (0-0.2); Bilirubin Total 0.4 mg/dL (0.2-1.0); Magnesium 1.9 mg/dL (1.8-2.4); Protein, Total 7.4 g/dL (6.4-8.2); Troponin High Sensitivity 12.2 pg/mL (<58.9)
[2021-10-07] MEDS ORDERED: HYDROCODONE/CHLORPHEN 5 ML/OSYR ONE (16:43)
--- NOTE | 2021-10-07 16:59 | RAD REPORT ---
EXAM DESCRIPTION: RAD - Chest Single View - 10/07/2021 4:36 pm CLINICAL HISTORY: Cough COMPARISON: Chest Single View dated 10/06/2021; Chest Single View dated 05/28/2015 FINDINGS: Lines: None. Lungs: Mild worsening in aeration of the right lung with consolidative type airspace disease in the r ight upper lobe Pleural: No significant pleural effusions or pneumothorax. Cardiac: The heart size is within normal limits. Bones: No acute fractures. Other: IMPRESSION: Mild worsened aeration of the right lung likely reflecting pneumonia.
--- NOTE | 2021-10-07 17:31 | RAD REPORT ---
EXAM DESCRIPTION: US - Extrem Venous W Compress Abel - 10/07/2021 5:25 pm CLINICAL HISTORY: SWELLING COMPARISON: No comparisons TECHNIQUE: Real-time sonographic evaluation of the lower extremity deep venous systems was performed using color Doppler, grayscale, and compression. FINDINGS: Bilateral lower extremities. Normal compressibility, flow augmentation, phasic flow and spontaneous flow is identified in both the left and right lower extremity deep venous systems. No intraluminal filling defects seen. IMPRESSION: No DVT in either lower extremity.
--- NOTE | 2021-10-07 18:26 | ER ---
Nurse's Notes [facility] Name: Orlando Peralta Age: 41 yrs Sex: Male : 1980 Arrival Date: 10/07/2021 Time: 15:18 Bed 15 Private MD: Diagnosis: Pneumonia due to other specified infectious organisms Presentation: 10/07 15:22 Chief complaint: SOB and cough x 1 week. Seen in ED for same s/s yesterday, reports hb worsening SOB and increased blood in sputum today. Ebola Screen: No symptoms or risks identified at this time. Risk Assessment: Do you want to hurt yourself or someone else? Patient reports no desire to harm self or others. Onset of symptoms was September 30, 2021. 15:22 Method Of Arrival: Wheelchair hb 15:22 Acuity: JANUSZ 2 hb 15:25 Coronavirus screen: Client presents with at least one sign or symptom that may indicate hb coronavirus-19. Standard/surgical mask placed on the client. Provider contacted for isolation considerations. 15:29 Initial Sepsis Screen: Does the patient meet any 2 criteria? RR > 20 per min. Temp hb <36.0*C (96.8*F)) or > 38.3*C (100.9*F). HR > 90 bpm. Yes Does the patient have a suspected source of infection? Yes: Productive cough/pneumonia. Triage Assessment: 16:00 General: Appears uncomfortable, Behavior is anxious. Pain: Denies pain. Respiratory: jg9 Reports shortness of breath Airway is patent Trachea midline Respiratory effort is even, labored, Respiratory pattern is regular, symmetrical, Breath sounds with crackles bilaterally. Onset: The symptoms/episode began/occurred at an unknown time. the patient has moderate shortness of breath. Historical: - Allergies: 15:24 No Known Allergies; hb - PMHx: 15:24 diabetes mellitus; Hypertensive disorder; hb - Immunization history:: Adult Immunizations up to date. - Social history:: Smoking status: Patient denies any tobacco usage or history of. Screenin:04 Abuse screen: Denies threats or abuse. Denies injuries from another. Nutritional jg9 screening: No deficits noted. Tuberculosis screening: No symptoms or risk factors identified. Fall Risk None identified. Assessment: 16:00 Reassessment: No changes from previously documented assessment. Patient and/or family jg9 updated on plan of care and expected duration. Pain level reassessed. Patient is alert, oriented x 3, equal unlabored respirations, skin warm/dry/pink. Cardiovascular: Rhythm is sinus tachycardia. 19:14 Reassessment: Pt reports feeling more comfortable now than earlier. Is diaphoretic, jb4 respirations are labored, and tachypneic, has bloody sputum. Coarse crackles noted to the right lobes. Reports worsening of shortness of breath with movement. Family and admitting provider at the bedside. 19:55 Reassessment: Attempted to call report, nurse busy, waiting for call back. jb4 20:45 Reassessment: Patient appears in no apparent distress at this time. Patient and/or jb4 family updated on plan of care and expected duration. Pain level reassessed. Patient is alert, oriented x 3, equal unlabored respirations, skin warm/dry/pink. No longer diaphoretic. Vital Signs: 15:22 BP 124 / 66; Pulse 124; Resp 28; Temp 101.8(TE); Pulse Ox 92% on R/A; Weight 118.84 kg; hb Height 5 ft. 10 in. (177.80 cm); Pain 8/10; 16:00 BP 129 / 62; Pulse 127; Resp 21 S; Pulse Ox 96% on R/A; jg9 18:04 Temp 99.1; jg9 19:00 BP 126 / 71; Pulse 90; Resp 21; Pulse Ox 96% on 3 lpm NC; jb4 20:15 BP 129 / 74; Pulse 106; Resp 16; Pulse Ox 96% on R/A; jb4 15:22 Body Mass Index 37.59 (118.84 kg, 177.80 cm) hb ED Course: 15:18 Patient arrived in ED. as 15:21 Tyrone Lee PA is PHCP. cp 15:21 Petar Galvan MD is Attending Physician. cp 15:24 Triage completed. hb 15:41 Yesenia Thacker, QUANG is Primary Nurse. jg9 16:04 Inserted saline lock: 20 gauge in left antecubital area, using aseptic technique. Blood jg9 collected. 16:06 Arm band placed on. jg9 16:06 Patient has correct armband on for positive identification. Bed in low position. Call jg9 light in reach. Side rails up X 1. 16:31 Inserted saline lock: 22 gauge in left hand, using aseptic technique. ss 16:38 XRAY Chest (1 view) In Process Unspecified. EDMS 17:27 US Extremity Venous W Compression Abel In Process Unspecified. EDMS 18:25 Alexandra Soto PA is Hospitalizing Provider. cp 20:45 No provider procedures requiring assistance completed. jb4 21:08 Patient admitted, IV remains in place. jb4 Administered Medications: 16:04 Drug: NS 0.9% 1000 ml Route: IV; Rate: 1 bolus; Site: left antecubital; jg9 18:01 Follow up: IV Status: Completed infusion; IV Intake: 1000ml jg9 16:39 Drug: Zosyn (piperacillin-tazobactam) 3.375 grams Route: IVPB; Infused Over: 60 mins; jg9 Site: left antecubital; 17:45 Follow up: IV Status: Completed infusion; IV Intake: 100ml jg9 16:39 Drug: Tussionex Pennkinetic ER (chlorpheniramine-hydrocodone) Suspension 5 ml Route: PO;jg9 18:02 Follow up: Response: No adverse reaction jg9 16:54 Drug: Tylenol 1000 mg Route: PO; jh6 18:04 Follow up: Response: No adverse reaction; Temperature is decreased jg9 16:54 Drug: Motrin (ibuprofen) 600 mg Route: PO; jh6 18:04 Follow up: Response: No adverse reaction jg9 Intake: 17:45 IV: 100ml; Total: 100ml. jg9 18:01 IV: 1000ml; Total: 1100ml. jg9 Outcome: 18:25 Decision to Hospitalize by Provider. cp 21:08 Admitted to ICU accompanied by nurse, via stretcher, room ICU - 5, with oxygen, with jb4 chart, Report called to QUANG Estrada 21:08 Condition: stable 21:08 Discharge instructions given to patient, family, Instructed on the need for admit, Demonstrated understanding of instructions. 21:10 Patient left the ED. jb4 Signatures: Dispatcher [employer] EDMS Carmen Holguin Shelby, RN RN ss Tyrone Lee PA PA cp Kathryn Nguyễn RN RN hb Stephen Phillips RN RN jb4 Yesenia Boyce, RN RN jh6 Yesenia Thacker, RN RN jg9 Corrections: (The following items were deleted from the chart) 15:25 15:22 BP 124 / 66; Pulse 124bpm; Resp 28bpm; Pulse Ox 93% RA; Temp 101.8F Temporal; hb 118.84 kg; Height 5 ft. 10 in.; BMI: 37.5; Pain 8/10; hb 19:18 19:14 Reassessment: Pt reports feeling more comfortable now than earlier. Is jb4 diaphoretic, respirations are labored, and tachypneic, has bloody sputum. Coarse crackles noted to the right lobes. Reports worsening of shortness of breath with movement. jb4
--- NOTE | 2021-10-07 18:26 | EDPHYS ---
Physician Documentation [facility] Name: Orlando Peralta Age: 41 yrs Sex: Male : 1980 Arrival Date: 10/07/2021 Time: 15:18 Bed 15 Private MD: ED Physician Petar Galvan HPI: 10/07 15:45 This 41 yrs old Male presents to ER via Wheelchair with complaints of Cough - cp blood, Shortness Of Breath - pneumonia+, Irregular Pulse. 15:45 The patient or guardian reports cough, that is constant, with productive sputum, that cp is bloody, that is purulent, difficulty breathing. Historical: - Allergies: 15:24 No Known Allergies; hb - PMHx: 15:24 diabetes mellitus; Hypertensive disorder; hb - Immunization history:: Adult Immunizations up to date. - Social history:: Smoking status: Patient denies any tobacco usage or history of. ROS: 15:50 Constitutional: Positive for body aches, fever, Negative for poor PO intake. cp 15:50 Eyes: Negative for injury, pain, redness, and discharge. cp 15:50 Cardiovascular: Positive for edema, palpitations, Negative for chest pain. 15:50 Respiratory: Positive for cough, hemoptysis, shortness of breath. 15:50 Abdomen/GI: Negative for abdominal pain, nausea, vomiting, and diarrhea. 15:50 Neuro: Negative for altered mental status, headache, weakness. 15:50 All other systems are negative. Exam: 15:55 Head/Face: Normocephalic, atraumatic. cp 15:55 Constitutional: The patient appears alert, awake, non-diaphoretic, non-toxic, well developed, well nourished, in obvious distress, mildly distressed, uncomfortable, overweight 15:55 Eyes: Periorbital structures: appear normal, Conjunctiva: normal, no exudate, no cp injection, Sclera: no appreciated abnormality, Lids and lashes: appear normal, bilaterally. 15:55 ENT: External ear(s): are unremarkable, Nose: is normal, Mouth: Lips: moist, Oral mucosa: pink and intact, moist, Posterior pharynx: Airway: no evidence of obstruction, patent, Tonsils: with erythema, no enlargement, no exudate, swelling, is not appreciated, erythema, that is moderate, exudate, is not appreciated. 15:55 Neck: ROM/movement: is normal, is supple, without pain, no range of motions limitations, no meningismus. 15:55 Chest/axilla: Inspection: normal, Palpation: is normal, no crepitus, no tenderness. 15:55 Cardiovascular: Rate: tachycardic, Rhythm: regular, Edema: ankle edema, that is very mild, JVD: is not appreciated. 15:55 Respiratory: mild respiratory distress is noted, Respirations: labored breathing, that is mild, Breath sounds: bronchial sounds, that are moderate, are heard in the right upper lobe and right posterior upper lobe, stridor, is not appreciated, wheezing: is not appreciated. 15:55 Abdomen/GI: Inspection: abdomen appears normal, Palpation: abdomen is soft and non-tender, in all quadrants. 15:55 Back: CVA tenderness, is absent. 15:55 Skin: cellulitis, is not appreciated, no rash present. 15:55 Neuro: Orientation: to person, place \T\ time. Mentation: is normal, Motor: moves all fours, strength is normal, Sensation: is normal. 16:05 ECG was reviewed by the Attending Physician. cp Vital Signs: 15:22 BP 124 / 66; Pulse 124; Resp 28; Temp 101.8(TE); Pulse Ox 92% on R/A; Weight 118.84 kg; hb Height 5 ft. 10 in. (177.80 cm); Pain 8/10; 16:00 BP 129 / 62; Pulse 127; Resp 21 S; Pulse Ox 96% on R/A; jg9 18:04 Temp 99.1; jg9 19:00 BP 126 / 71; Pulse 90; Resp 21; Pulse Ox 96% on 3 lpm NC; jb4 20:15 BP 129 / 74; Pulse 106; Resp 16; Pulse Ox 96% on R/A; jb4 15:22 Body Mass Index 37.59 (118.84 kg, 177.80 cm) hb MDM: 15:27 Patient medically screened. cp 18:30 Data reviewed: vital signs, nurses notes, lab test result(s), EKG, radiologic studies, cp plain films, ultrasound. 18:30 Differential Diagnosis: Bronchitis Influenza Viral Syndrome Pneumonia Other pulmonary cp embolism, DVT, sepsis. Test interpretation: by ED physician or midlevel provider: ECG, plain radiologic studies. Counseling: I had a detailed discussion with the patient and/or guardian regarding: the historical points, exam findings, and any diagnostic results supporting the discharge/admit diagnosis, lab results, radiology results, the need for further work-up and treatment in the hospital. Response to treatment: the patient's symptoms have mildly improved after treatment. Physician consultation: Alexandra JACKSON was contacted at 18:25, regarding admission, to the medical/surgical unit. patient's condition, and will see patient in ED, shortly. 10/07 15:40 Order name: Basic Metabolic Panel; Complete Time: 16:49 cp 10/07 16:50 Interpretation: Normal except: NA 135. cp 10/07 15:40 Order name: CBC with Diff; Complete Time: 16:30 cp 10/07 16:50 Interpretation: Normal except: MPV 7.3; LYM% 11.4; MN% 16.1; LYMA 0.5. cp 10/07 15:40 Order name: D-Dimer; Complete Time: 16:30 cp 10/07 15:40 Order name: LFT's; Complete Time: 16:49 cp 10/07 16:50 Interpretation: Normal except: AST 82; ALT 79; GLOB 3.9; A/G 0.9. cp 10/07 15:40 Order name: Magnesium; Complete Time: 16:49 cp 10/07 15:40 Order name: NT PRO-BNP; Complete Time: 16:49 cp 10/07 15:40 Order name: PT-INR; Complete Time: 16:30 cp 10/07 15:40 Order name: Troponin HS; Complete Time: 16:49 cp 10/07 15:40 Order name: XRAY Chest (1 view); Complete Time: 17:09 cp 10/07 17:09 Interpretation: Report review. cp 10/07 15:40 Order name: US Extremity Venous W Compression Abel; Complete Time: 18:24 cp 10/07 15:40 Order name: Lactate; Complete Time: 16:30 cp 10/07 15:40 Order name: Procalcitonin; Complete Time: 17:18 cp 10/07 17:18 Interpretation: Procalcitonin 0.13; Reviewed. cp 10/07 15:40 Order name: Blood Culture Adult (2); Complete Time: 17:31 cp 10/07 20:58 Order name: CT; Complete Time: 17:31 EDMS 10/07 15:40 Order name: EKG; Complete Time: 15:42 cp 10/07 15:40 Order name: Cardiac monitoring; Complete Time: 15:41 cp 10/07 15:40 Order name: EKG - Nurse/Tech; Complete Time: 16:04 cp 10/07 15:40 Order name: IV Saline Lock; Complete Time: 16:04 cp 10/07 15:40 Order name: Labs collected and sent; Complete Time: 16:04 cp 10/07 15:40 Order name: O2 Per Protocol; Complete Time: 17:15 cp 10/07 15:40 Order name: O2 Sat Monitoring; Complete Time: 15:41 cp EC:05 Rate is 117 beats/min. Rhythm is regular. VT interval is normal. QRS interval is cp normal. QT interval is normal. Interpreted by me. Reviewed by me. Administered Medications: 16:04 Drug: NS 0.9% 1000 ml Route: IV; Rate: 1 bolus; Site: left antecubital; j9 18:01 Follow up: IV Status: Completed infusion; IV Intake: 1000ml j9 16:39 Drug: Zosyn (piperacillin-tazobactam) 3.375 grams Route: IVPB; Infused Over: 60 mins; jg9 Site: left antecubital; 17:45 Follow up: IV Status: Completed infusion; IV Intake: 100ml j9 16:39 Drug: Tussionex Pennkinetic ER (chlorpheniramine-hydrocodone) Suspension 5 ml Route: PO;jg9 18:02 Follow up: Response: No adverse reaction j9 16:54 Drug: Tylenol 1000 mg Route: PO; [facility] 18:04 Follow up: Response: No adverse reaction; Temperature is decreased j9 16:54 Drug: Motrin (ibuprofen) 600 mg Route: PO; 6 18:04 Follow up: Response: No adverse reaction jg9 Disposition: 10/08 17:26 Co-signature as Attending Physician, Petar Galvan MD. rn Disposition Summary: 10/07/21 18:25 Hospitalization Ordered Hospitalization Status: Inpatient Admission cp Provider: Alexandra Soto cp Condition: Stable cp Problem: new cp Symptoms: have improved cp Bed/Room Type: Standard cp Location: Intensive Care Unit(10/07/21 19:47) Room Assignment: 5-(10/07/21 19:47) mw Diagnosis - Pneumonia due to other specified infectious organisms cp Forms: - Medication Reconciliation Form cp - SBAR form cp Signatures: Dispatcher [employer] Alicia Donnelly RN RN Petar Galvan MD MD rn Page, Corey, PA PA cp Kathryn Nguyễn RN RN Yesenia Boyce RN RN jh6 Yesenia Thacker RN RN jg9 Corrections: (The following items were deleted from the chart) 10/07 17:21 15:30 This 41 yrs old Male presents to ER via Wheelchair with complaints of cp Cough - blood, Shortness Of Breath - pneumonia+, Irregular Pulse. cp 18:05 18:05 Constitutional: Positive for body aches, fever, Negative for poor PO intake, cp cp 19:22 18:25 Telemetry/MedSurg (Inpatient) cp 19:22 18:25 cp mw 19:47 19:22 [facility] ER HOLD mw mw 19:47 19:22 ERHOLD- mw mw 20:18 15:35 Constitutional: The patient appears alert, awake, non-diaphoretic, non-toxic, cp well developed, well nourished, in obvious distress, mildly distressed, uncomfortable, overweight cp 20:18 15:35 Head/Face: Normocephalic, atraumatic. cp cp
--- NOTE | 2021-10-07 19:44 | P.HP ---
Certification for Inpatient Patient admitted to: Inpatient With expected LOS: <2 Midnights Patient will require the following post-hospital care: None Practitioner: I am a practitioner with admitting privileges, knowledge of patient current condition, hospital course, and medical plan of care. Services: Services provided to patient in accordance with Admission requirements found in Title 42 Section 412.3 of the Code of Federal Regulations Patient History Date of Service: 10/07/21 Primary Care Provider: Jo Reason for admission: Pneumonia History of Present Illness: Patient is a 41 year-old male with type 2 diabetes non insulin dependent and hypertension who presented to the ED with complaints of shortness of breath and hemoptysis. Patient reports that the symptoms have been occurring for 6 days now. He was seen in the ED yesterday, diagnosed with RLL pneumonia, and discharged with azithromycin. Covid/flu/strep negative. He had a d-dimer of [address] chest angio chest showed "Due to technical malfunction on 2 separate attempts, the exam is non diagnostic for evaluating pulmonary emboli. Large consolidated pneumonia filling most of the right upper lobe. No cavitation is present and no underlying mass lesion suspected. Much less prominent patchy alveolar pneumonia changes are seen in the right lower lobe." Today he presents with hypoxia, worsening shortness of breath, and increased hemoptysis. His white count and lactic acid are unremarkable. Procal is elevated at 0.13. Chest xray today showed "mild worsened aeration of the right lung likely reflecting pneumonia." Extremity venous ultrasound negative for DVT. I spoke with patient's sister who reports that she had a DVT and PE in the past with unknown cause and has been on anticoagulation since. Repeat chest CT angio ordered and pending. He is admitted for further evaluation and treatment. Allergies No Known Allergies Allergy (Unverified 05/28/15 16:17) Home medications list reviewed: Yes Home Medications: Codeine/APAP [Tylenol W/Codeine #3 tab] 1 tab PO Q4HP PRN #30 tab 01/30/19 NaCl 0.9% Irr Bottle [Ns Irrigation Bottle] 1,000 ml IR DAILY #1 btl 01/30/19 Sulfamethoxazole/Trimethoprim [Bactrim Ds Tablet] 1 tab PO DAILY 01/30/19 - Past Medical/Surgical History Diabetic: Yes -: Hypertension -: Type 2 Diabetes, Non-Insulin Dependent -: Sebaceous Cyst Removal Psychosocial/ Personal History: Patient lives at home alone. He has a sister. - Family History Sister -: Cancer, Other (see notes) (Pulmonary Embolism) Mother -: Heart disease, Lung disease - Social History Smoking Status: Current every day smoker Alcohol use: No CD- Drugs: No Caffeine use: Yes Place of Residence: Home Review of Systems General: Sweats, Weakness, Malaise Respiratory: Cough, Shortness of Breath, Hemoptysis, SOB with Excertion, Pleuritic Pain, Sputum Physical Examination - Physical Exam General: Alert, In no apparent distress HEENT: Atraumatic, PERRLA, Other (dry mucous membranes, diaphoretic), EOMI, Sclerae nonicteric Neck: Supple, 2+ carotid pulse no bruit, No LAD, Without JVD or thyroid abnormality Respiratory: Dull, Crackles/rales, Expiratory wheezes Cardiovascular: Regular rate/rhythm, Normal S1 S2, Edema Gastrointestinal: Normal bowel sounds, No tenderness Musculoskeletal: No tenderness Integumentary: No rashes Neurological: Normal speech, Normal strength at 5/5 x4 extr, Normal tone, Normal affect - Studies Laboratory Data (last 24 hrs) 10/07/21 15:46: PT 11.3, INR 1.03 10/07/21 15:46: WBC 4.80, Hgb 14.1, Hct 41.2, Plt Count 247 10/07/21 15:46: Sodium 135 L, Potassium 3.7, BUN 7, Creatinine 0.79, Glucose 97, Magnesium 1.9, Total Bilirubin 0.4, AST 82 H, ALT 79 H, Alkaline Phosphatase 117 Assessment and Plan - Problems (Diagnosis) (1) Suspected pulmonary embolism Current Visit: Yes Status: Acute (2) Pneumonia Current Visit: Yes Status: Acute Qualifiers: Pneumonia type: due to unspecified organism Laterality: right Lung location: upper lobe of lung Qualified Code(s): J18.9 - Pneumonia, unspecified organism (3) Sepsis Current Visit: Yes Status: Acute Qualifiers: Sepsis type: sepsis due to unspecified organism Sepsis acute organ dysfunction status: without acute organ dysfunction Qualified Code(s): A41.9 - Sepsis, unspecified organism (4) Hypertension Current Visit: Yes Status: Chronic Qualifiers: Hypertension type: primary hypertension Qualified Code(s): I10 - Essential (primary) hypertension (5) Type 2 diabetes mellitus Current Visit: Yes Status: Chronic Qualifiers: Diabetes mellitus intermission coordinator insulin use: without intermission coordinator use Diabetes mellitus complication status: without complication Qualified Code(s): E11.9 - Type 2 diabetes mellitus without complications - Plan -CT chest angio pending. Ddimer 3312. Extremity venous US negative. Therapeutic lovenox. -Continue broad spectrum antibiotics for worsening pneumonia. -IV fluids at 75 cc/hour. -Incentive spirometry, IV steroids. -Tylenol PRN fever. Morphine PRN pain. Zofran PRN nausea. -ACHS acuu checks with mild sliding scale insulin and diabetic diet. -PRN breathing treatments and supplemental O2. Monitor pulse ox. -Sputum & blood cultures obtained. -A1C, lipid panel, TSH, ESR, CRP pending. -Monitor and replete electrolytes per protocol. -Reconcile and continue home medications. -Full code Discharge Plan: Home Plan to discharge in: 48 Hours - Advance Directives Does patient have a Living Will: No Does patient have a Durable POA for Healthcare: No - Code Status/Comfort Care Code Status Assessed: Yes (Full) Critical Care: No Time Spent Managing Pts Care (In Minutes): 50
[2021-10-07] MEDS ORDERED: ACETAMINOPHEN 500 MG TAB PO PRN (20:23)
[2021-10-07] MEDS ORDERED: ALBUTEROL 2.5 MG/3 ML NEB SOL NEB PRN (20:23)
--- NOTE | 2021-10-07 20:57 | RAD REPORT ---
EXAM DESCRIPTION: CT - Chest For Pe Angio - 10/07/2021 8:40 pm CLINICAL HISTORY: elevated d dimer, hypoxia COMPARISON: Chest For Pe Angio dated 10/06/2021 TECHNIQUE: Dynamically enhanced axial 3 mm thick images of the chest were obtained during administra tion of <100> mL Isovue 370 IV contrast. Coronal and oblique reconstruction images were generated and reviewed. Exam utilizes a protocol for optimal evaluation of pulmonary arterial tree. Maximum intensity projections 3D imaging was utilized All CT scans are performed using dose optimization technique as appropriate and may include automated exposure control or mA/KV adjustment according to patient size. FINDINGS: Chest Wall: No suspicious thyroid nodules or pathologic lymphadenopathy. Lungs: Widespread nodularity in the right upper lobe and to a lesser extent the right middle lobe and right lower lobe. There has been some clearing of consolidation compared with the prior CT. Some of the nodularity in the right lower lobe is mildly worsened. Pleura: Tiny right pleural effusion . Mediastinum/meliton: Mediastinal and hilar lymphadenopathy is similar. Mild circumferential thickening o f the esophagus. Pulmonary arteries/Aorta: No filling defect identified. Limited evaluation segmental and subsegmental pulmonary arteries. Markedly enlarged main pulmonary arteries. No aortic aneurysm. Heart: No significant pericardial effusion. Cardiomegaly. Upper abdomen: No acute abnormality. Bones: No acute abnormality. IMPRESSION: No central pulmonary embolus. Limited evaluation of the segmental and subsegmental pulmo nary arteries due to motion artifact. Overall, improvement is noted compared with prior. The consolid ation in the right upper lobe has partially cleared. Mild increased right lower lobe nodularity. Medi astinal and hilar lymphadenopathy is similar and possibly reactive. The findings are presumably relat ed to pneumonia but continued imaging follow-up is recommended to ensure resolution. Alternatively, b ronchoscopy may be able better evaluate.
[2021-10-07] MEDS: INSULIN -REGULAR HUMAN 50 UNIT/0.5 ML ML SQ SCH (21:00)
[2021-10-07] MEDS: NA CHLORIDE 0.9% 1,000 ML IV SCH (21:15)
[2021-10-07] MEDS ORDERED: Enoxaparin 120 MG/0.8 ML SYR SQ SCH (22:00)
[2021-10-07] MEDS: METHYLPREDNISOLONE 125 MG INJ IV SCH (23:09)
[2021-10-07 23:41] VITALS: BMI 37.5
[2021-10-08] MEDS: PIPER TAZO 3.375 GM in NA CHLORIDE 0.9% 100 ML IV SCH ×2 (00:38→08:23)
[2021-10-08 04:59] LABS: Absolute Lymphocytes (CBC) 0.5 K/uL (0.7-4.9); Hematocrit 43.9 % (39.6-49.0); Lymphocytes % 10.1 % (15.3-44.8); MCV 88.3 fL (80-100); MPV 7.6 fL (7.6-11.3); RBC Red Blood Cell Count 4.97 M/uL (4.33-5.43)
[2021-10-08] MEDS: METHYLPREDNISOLONE 125 MG INJ IV SCH (05:09)
[2021-10-08 05:21] LABS: Magnesium 2.1 mg/dL (1.8-2.4); Phosphorus 2.9 mg/dL (2.5-4.9); Potassium 4.4 mmol/L (3.5-5.1); Thyroid Stimulating Hormone 0.345 uIU/mL (0.360-3.740)
[2021-10-08] MEDS: INSULIN -REGULAR HUMAN 50 UNIT/0.5 ML ML SQ SCH ×4 (07:30→21:00)
[2021-10-08] MEDS ORDERED: Enoxaparin 120 MG/0.8 ML SYR SQ SCH (09:00)
[2021-10-08 09:14] LABS: Specific Gravity >= 1.030 (1.005-1.030); Urine Blood 1+ (Negative); Urine Clarity Clear (Clear); Urine Color Yellow (Yellow); Urine Glucose Negative (Negative); Urine Protein 1+ (Negative); Urine Urobilinogen 0.2 mg/dL (0.2-1.0)
[2021-10-08 09:30] LABS: Urine Bilirubin NEGATIVE (Negative)
[2021-10-08 09:34] LABS: Urine Bacteria <20 /HPF (<20)
[2021-10-08 09:36] LABS: Urine Mucus 1+ /HPF (None Seen)
[2021-10-08] MEDS: NA CHLORIDE 0.9% 1,000 ML IV SCH (09:43)
--- NOTE | 2021-10-08 10:23 | P.PN ---
Subjective Date of Service: 10/08/21 Primary Care Provider: Jo Chief Complaint: Pneumonia Patient is 41 years of age admitted with severe community-acquired pneumonia still wheezing short of breath has some hemoptysis Review of Systems General: Weakness Respiratory: Cough, Shortness of Breath, Hemoptysis Physical Examination - Vital Signs Temperature: 97.8 F Blood Pressure: 146/94 Pulse: 105 Respirations: 16 Pulse Ox (%): 95 - Physical Exam General: Alert, Mild distress Respiratory: Expiratory wheezes Cardiovascular: No edema, Normal pulses - Studies Laboratory Data (last 24 hrs) 10/07/21 15:46: PT 11.3, INR 1.03 10/07/21 15:46: WBC 4.80, Hgb 14.1, Hct 41.2, Plt Count 247 10/07/21 15:46: Sodium 135 L, Potassium 3.7, BUN 7, Creatinine 0.79, Glucose 97, Magnesium 1.9, Total Bilirubin 0.4, AST 82 H, ALT 79 H, Alkaline Phosphatase 117 Assessment And Plan - Current Problems (Diagnosis) (1) Pneumonia Current Visit: Yes Status: Acute Plan: Patient is 41 years of age admitted with severe community-acquired pneumonia is started becoming sick since last became progressively worse CT scan shows extensive consolidation on the right side changed to Rocephin and levofloxacin sputum cultures have been ordered blood cultures pending he is a heavy smoker started patient on Brovana nebulizer scheduled vital signs stable add 1 dose of Lasix Qualifiers: Pneumonia type: due to unspecified organism Laterality: right Lung location: upper lobe of lung Qualified Code(s): J18.9 - Pneumonia, unspecified organism
[2021-10-08] MEDS ORDERED: FUROSEMIDE 20 MG/ 2ML VIAL IV ONE (10:30)
[2021-10-08] MEDS: ARFORMOTEROL TARTRATE 15 MCG/2 ML VIAL.NEB NEB SCH ×2 (10:30→20:20)
[2021-10-08] MEDS ORDERED: PNEUMOCOCCAL VACCINE 0.5 ML IMVAC ONE (11:00)
[2021-10-08] MEDS: Levofloxacin 750mg IV 750 MG/150 ML BAG IV SCH (12:37)
[2021-10-08] MEDS: CEFTRIAXONE 1,000 MG in NA CHLORIDE 0.9% 50 ML IVPB SCH (12:38)
[2021-10-08] MEDS: PROMETH/COD 6.25/10MG SYRUP 5ML PO PRN ×2 (13:00→23:00)
[2021-10-08] MEDS: ONDANSETRON 4 MG/2 ML VIAL IV PRN (23:00)
[2021-10-08] MEDS: MORPHINE 2 MG/ML SYR IV PRN (23:00)
[2021-10-09 03:45] LABS: Absolute Lymphocytes (CBC) 1.2 K/uL (0.7-4.9); Lymphocytes % 18.4 % (15.3-44.8); MCV 88.6 fL (80-100); MPV 7.8 fL (7.6-11.3); RBC Red Blood Cell Count 4.86 M/uL (4.33-5.43)
[2021-10-09 04:03] LABS: Magnesium 1.9 mg/dL (1.8-2.4)
[2021-10-09 05:02] LABS: Blood Morphology Comment NOT SEEN (NOT SEEN); Platelet Estimate ADEQ
[2021-10-09] MEDS: PROMETH/COD 6.25/10MG SYRUP 5ML PO PRN (05:10)
[2021-10-09] MEDS: ONDANSETRON 4 MG/2 ML VIAL IV PRN (05:10)
[2021-10-09] MEDS: MORPHINE 2 MG/ML SYR IV PRN (05:11)
[2021-10-09] MEDS: INSULIN -REGULAR HUMAN 50 UNIT/0.5 ML ML SQ SCH ×6 (07:30→20:57)
[2021-10-09] MEDS: ARFORMOTEROL TARTRATE 15 MCG/2 ML VIAL.NEB NEB SCH ×2 (08:00→20:16)
[2021-10-09] MEDS: CEFTRIAXONE 1,000 MG in NA CHLORIDE 0.9% 50 ML IVPB SCH (09:00)
--- NOTE | 2021-10-09 09:08 | RAD REPORT ---
EXAM DESCRIPTION: RAD - Chest Pa And Lat (2 Views) - 10/09/2021 8:50 am CLINICAL HISTORY: PNA COMPARISON: Chest Single View dated 10/07/2021; Chest Single View dated 10/06/2021; Chest Single View dated 05/28/2015 FINDINGS: Lines: None. Lungs: Resolving airspace disease in the right upper lobe though there are still residual opacities . Left lung is clear. Pleural: No significant pleural effusions or pneumothorax. Cardiac: The heart size is within normal limits. Mediastinum: Within normal limits. Bones: No acute fractures. Other: None IMPRESSION: Improved though not completely resolved presumed pneumonia in the right upper lobe.
[2021-10-09] MEDS ORDERED: CEFTRIAXONE 1000 MG/VIAL ONE (09:36)
[2021-10-09] MEDS ORDERED: NA CHLORIDE 0.9% 50 ML ONE (09:41)
--- NOTE | 2021-10-09 10:23 | EKG ---
Test Date: 2021-10-07 Test Time: 16:00:16 Pediatric Assistant: MARTIN MEASUREMENT RESULTS: Intervals: Rate: 117 MT: 134 QRSD: 84 QT: 290 QTc: 404 Blanca: P: 69 MT: 134 QRS: 83 T: 57 INTERPRETIVE STATEMENTS: Sinus tachycardia Otherwise normal ECG Compared to ECG 05/28/2015 14:59:03 Sinus rhythm no longer present Electronically Signed On 10-09-21 10:20:12 CDT by Gerardo Cristina
[2021-10-09] MEDS: Levofloxacin 750mg IV 750 MG/150 ML BAG IV SCH (11:44)
--- NOTE | 2021-10-09 11:45 | P.PN ---
Subjective Date of Service: 10/09/21 Primary Care Provider: Jo Chief Complaint: Pneumonia Patient is still complaining of cough congestion shortness of breath no significant change Review of Systems General: Weakness Respiratory: Cough, Shortness of Breath Physical Examination - Vital Signs Temperature: 97.5 F Blood Pressure: 122/70 Pulse: 71 Respirations: 16 Pulse Ox (%): 97 - Physical Exam General: Alert, Oriented x3, Mild distress Respiratory: Crackles/rales (Right side) Cardiovascular: No edema, Regular rate/rhythm Assessment And Plan - Current Problems (Diagnosis) (1) Pneumonia Current Visit: Yes Status: Acute Plan: Patient admitted with community-acquired pneumonia condition stable so far cultures are negative sputum cultures ordered labs reviewed right upper lobe pneumonia change in medication white count is normal patient is hypoxic patient does not appear to be septic trial of prednisone Qualifiers: Pneumonia type: due to unspecified organism Laterality: right Lung location: upper lobe of lung Qualified Code(s): J18.9 - Pneumonia, unspecified organism
[2021-10-09] MEDS: predniSONE 20 MG TAB PO SCH ×2 (12:55→20:56)
[2021-10-09] MEDS ORDERED: ALBUTEROL 2.5 MG/3 ML NEB SOL NEB PRN (14:00)
--- NOTE | 2021-10-09 18:16 | P.PN ---
Subjective Date of Service: 10/09/21 Chief Complaint: Pneumonia Subjective: Improving No acute events overnight. He reports persistent shortness of breath, but this has improved. He remains on 2 L nasal cannula. Denies any chest pain or palpitations. Review of Systems 10-point ROS is otherwise unremarkable Respiratory: Cough, Shortness of Breath Physical Examination - Vital Signs Temperature: 97.3 F Blood Pressure: 140/76 Pulse: 74 Respirations: 16 Pulse Ox (%): 95 - Physical Exam General: Alert, In no apparent distress, Oriented x3 HEENT: Atraumatic, PERRLA, Mucous membr. moist/pink, EOMI, Sclerae nonicteric Neck: Supple, JVD not distended Respiratory: Diminished, Rhonchi/gurgles (right-sided) Cardiovascular: No edema, Regular rate/rhythm, Normal S1 S2, No gallops, No rubs, No murmurs Gastrointestinal: Normal bowel sounds, Soft and benign, Non-distended, No tenderness, No rebound, No guarding Musculoskeletal: No clubbing Integumentary: No rashes Neurological: Normal speech, Cranial nerves 3-12 intact, Normal affect Assessment And Plan - Plan # Sepsis likely secondary to Right-Upper Lobe Community-Acquired Pneumonia He met sepsis criteria based on HR > 90 bpm, RR > 20 breaths/min and the suspected source is pneumonia. - Sepsis order set was initiated - Initial Lactate was 1.1 - Blood cultures drawn before antibiotics were given - Broad spectrum antibiotics started: ceftriaxone + levofloxacin - In regards to fluids: - 30 mL/kg of IV fluids was not administered given SBP > 90, MAP > 65, lactic acid < 4 - Encouraged incentive spirometry - Repeat chest x-ray to monitor for improvement - He requested at STD screen - at his request, HIV, G/C, RPR was ordered # Elevated D-Dimer - CTA chest = "No central pulmonary embolus. Limited evaluation of the segmental and subsegmental pulmonary arteries due to motion artifact. Overall, improvement is noted compared with prior. The consolidation in the right upper lobe has partially cleared. Mild increased right lower lobe nodularity. Mediastinal and hilar lymphadenopathy is similar and possibly reactive. The findings are presumably related to pneumonia but continued imaging follow-up is recommended to ensure resolution. Alternatively, bronchoscopy may be able better evaluate." - Bilateral lower extremity Doppler = "No DVT in either lower extremity." # Tobacco Use Disorder - Extensive tobacco cessation counseling was provided - Requested coupon for varenicline (Chantix) - spoke with CM - appreciate assistance # Reported Type II Diabetes Mellitus - Hgb A1c = 5.4 % - Correction scale insulin ordered # Hypertension - Continue home meds Angel Up M.D.
[2021-10-10] MEDS: PROMETH/COD 6.25/10MG SYRUP 5ML PO PRN (00:36)
[2021-10-10] MEDS: NICOTINE 21 MG/PAT TD SCH ×2 (00:36→10:37)
[2021-10-10] MEDS: MORPHINE 2 MG/ML SYR IV PRN ×2 (00:36→05:07)
[2021-10-10 03:41] LABS: Absolute Lymphocytes (CBC) 0.7 K/uL (0.7-4.9); Hematocrit 44.4 % (39.6-49.0); Lymphocytes % 11.7 % (15.3-44.8); MCV 88.7 fL (80-100); MPV 7.6 fL (7.6-11.3); RBC Red Blood Cell Count 5.01 M/uL (4.33-5.43)
[2021-10-10] MEDS: INSULIN -REGULAR HUMAN 50 UNIT/0.5 ML ML SQ SCH (07:30)
[2021-10-10] MEDS: ARFORMOTEROL TARTRATE 15 MCG/2 ML VIAL.NEB NEB SCH (08:00)
--- NOTE | 2021-10-10 08:28 | P.DS ---
Admission Date: 10/07/21 Discharge Date: 10/10/21 Disposition: ROUTINE DISCHARGE Discharge Condition: GOOD Reason for Admission: Pneumonia Consultations: 1. Pulmonary Medicine Hospital Course: DIAGNOSES: # Sepsis likely secondary to Right-Upper Lobe Community-Acquired Pneumonia # Elevated D-Dimer likely secondary to Pneumonia # Tobacco Use Disorder # Reported Type II Diabetes Mellitus # Hypertension HOSPITAL COURSE: Mr. Orlando Hudson is a pleasant 41 year old male with a past medical history significant for tobacco use disorder, type 2 diabetes mellitus, hypertension who was admitted to the [facility] [place], [place] on 10/07/2021 for cough and shortness of breath. He was admitted to the Medicine service for further evaluation. Upon further testing, he was noted to have sepsis secondary to a right upper lobe community- acquired pneumonia. Pulmonary Medicine was consulted and he was evaluated by Dr. Maddox. He was treated with IV ceftriaxone, levofloxacin, prednisone, and incentive spirometry. Over his hospitalization, his symptoms improved significantly. A follow-up chest x-ray revealed, "resolving airspace disease in the right upper lobe though there are still residual opacities. Left lung is clear." Dr. Maddox has cleared him to be discharged home today. He was discharged with oral antibiotics and steroids per pulmonary recommendations. I have advised that he follow-up with his PCP for a posthospitalization follow-up as well as to schedule a repeat chest x-ray in about 4 weeks to ensure r esolution of the airspace opacities. He verbalized understanding and agreed to make this appointment. Of note, he was found to have an elevated Ddimer. He was evaluated with a CT chest angiogram which revealed, "no central pulmonary embolus. Limited evaluation of the segmental and subsegmental pulmonary arteries due to motion artifact. Overall, improvement is noted compared with prior. The consolidation in the right upper lobe has partially cleared. Mild increased right lower lobe nodularity. Mediastinal and hilar lymphadenopathy is similar and possibly reactive. The findings are presumably related to pneumonia but continued imaging follow-up is recommended to ensure resolution. Alternatively, bronchoscopy may be able better evaluate." He also had a bilateral lower extremity Doppler ultrasound, which revealed, "no DVT in either lower extremity." On 10/10/2021, he was seen on morning rounds and deemed medically stable for discharge. He was discharged with instructions to schedule follow-up appointments with his PCP (Dr. Hall) in 3-5 days and with Pulmonology (Dr. Maddox) in 5-7 days. He was provided prescriptions for cefdinir, levofloxacin, prednisone, and varenicline. He was counseled extensively on the importance of tobacco cessation. He and his sister (Ms. Snowden) were given the opportunity to ask questions and reported no further questions. Furthermore, all questions were answered to the best of my ability. Today, I personally spent 40 minutes on his case, of which greater than 50% of the time was spent in patient education, counseling, and coordination of care as described above. - Physical Exam General: Alert, In no apparent distress, Oriented x3 HEENT: Atraumatic, PERRLA, Mucous membr. moist/pink, EOMI, Sclerae nonicteric Neck: Supple, JVD not distended Respiratory: SpO2 96 % on room air. Diminished in RUL field. Rhonchi/gurgles (minimal) Cardiovascular: No edema, Regular rate/rhythm, Normal S1 S2, No gallops, No rubs, No murmurs Gastrointestinal: Normal bowel sounds, Soft and benign, Non-distended, No tenderness, No rebound, No guarding Musculoskeletal: No clubbing Integumentary: No rashes Neurological: Normal speech, Cranial nerves 3-12 intact, Normal affect Vital Signs/Physical Exam: Temp Pulse Resp BP Pulse Ox 97.6 F 73 18 124/67 96 10/10/21 04:00 10/10/21 04:00 10/10/21 05:37 10/10/21 04:00 10/10/21 05:37 Laboratory Data at Discharge: WBC 6.30 K/uL (4.3-10.9) 10/10/21 02:32 Hgb 14.9 g/dL (13.6-17.9) 10/10/21 02:32 Hct 44.4 % (39.6-49.0) 10/10/21 02:32 Plt Count 393 K/uL (152-406) 10/10/21 02:32 PT 11.3 SECONDS (9.5-12.5) 10/07/21 15:46 INR 1.03 10/07/21 15:46 Sodium 135 mmol/L (136-145) L 10/10/21 02:32 Potassium 4.0 mmol/L (3.5-5.1) 10/10/21 02:32 BUN 15 mg/dL (7-18) 10/10/21 02:32 Creatinine 0.78 mg/dL (0.55-1.3) 10/10/21 02:32 Glucose 217 mg/dL (74-106) H 10/10/21 02:32 Phosphorus 2.9 mg/dL (2.5-4.9) 10/08/21 04:37 Magnesium 2.0 mg/dL (1.8-2.4) 10/10/21 02:32 Total Bilirubin 0.4 mg/dL (0.2-1.0) 10/07/21 15:46 AST 82 U/L (15-37) H 10/07/21 15:46 ALT 79 U/L (12-78) H 10/07/21 15:46 Alkaline Phosphatase 117 U/L (45-117) 10/07/21 15:46 Triglycerides 80 mg/dL (<150) 10/08/21 04:37 Cholesterol 130 mg/dL (<200) 10/08/21 04:37 HDL Cholesterol 60 mg/dL (40-60) 10/08/21 04:37 Cholesterol/HDL Ratio 2.17 10/08/21 04:37 Home Medications: Varenicline Tartrate [Chantix] 1 each PO SEECOM 28 Days #1 packet 10/10/21 levoFLOXacin [Levaquin] 750 mg PO DAILY 7 Days #7 tab 10/10/21 predniSONE [Deltasone] 20 mg PO BID 5 Days #10 tab 10/10/21 New Medications: Varenicline Tartrate [Chantix] 1 each PO SEECOM 28 Days #1 packet levoFLOXacin [Levaquin] 750 mg PO DAILY 7 Days #7 tab predniSONE [Deltasone] 20 mg PO BID 5 Days #10 tab Physician Discharge Instructions: 1. Please schedule a follow-up appointment with your PCP (Dr. Hall) in 3-5 days - Please make sure to schedule a repeat chest x-ray in about 4 weeks to confirm that your pneumonia has fully healed 2. Please schedule a follow-up appointment with Pulmonary (Dr. Maddox) in 5-7 days Diet: Regular Activity: Ad niki Followup: Russ Maddox MD [ACTIVE - CAN ADMIT] - (Call to schedule appointment.) Sarath Hall MD [Primary Care Provider] - (Call to schedule appointment) Time spent managing pt's care (in minutes): 40
[2021-10-10] MEDS ORDERED: MUCINEX DM 12HR.SR TAB PO PRN (08:37)
[2021-10-10] MEDS ORDERED: levoFLOXacin 750 MG TAB PO SCH (09:00)
[2021-10-10 09:46] VITALS: O2SAT 88
[2021-10-10] MEDS: predniSONE 20 MG TAB PO SCH (10:37)
--- NOTE | 2021-10-10 11:49 | P.PN ---
Subjective Date of Service: 10/10/21 Primary Care Provider: Jo Chief Complaint: Pneumonia Patient is improving still complaining of unable to cough up phlegm Review of Systems General: Weakness Respiratory: Cough, Shortness of Breath Physical Examination - Vital Signs Temperature: 97.9 F Blood Pressure: 141/86 Pulse: 76 Respirations: 14 Pulse Ox (%): 99 - Physical Exam General: Alert, In no apparent distress, Oriented x3 Respiratory: Crackles/rales (Crackles on the right side) Assessment And Plan - Current Problems (Diagnosis) (1) Pneumonia Current Visit: Yes Status: Acute Plan: Patient admitted with pneumonia is doing better blood cultures are so far nega tive discharge home on levofloxacin 750 mg daily in addition to prednisone follow-up with me in 2-week discharge of room air satting greater than 90% Qualifiers: Pneumonia type: due to unspecified organism Laterality: right Lung location: upper lobe of lung Qualified Code(s): J18.9 - Pneumonia, unspecified organism
[2021-10-10 12:23] VITALS: BP 122/74; TEMP 97.7
[2021-10-11 00:13] LABS: RPR (Rapid Plasma Reagin) NON-REACT (NON-REACT)
[2021-10-11 11:45] LABS: HIV AG/AB 4TH GEN Non-reactive (Non-reactive)
[2021-10-12 07:31] LABS: C.trachomatis RNA,TMA Not Detected (Not Detected)
== END 2021-10-10 13:49 | disposition home or self-care (01) | DRG 871 ==
LOC: ER 15:17 → ERHOLD 19:35 → 3RD-ICU 20:22 → 4TH 10-08 16:30
PROVIDERS: ADMIT Internal Medicine Sleep Medicine; ATTEND Internal Medicine Sleep Medicine
DX: A41.9 Sepsis, unspecified organism (principal); J18.9 Pneumonia, unspecified organism; I10 Essential (primary) hypertension; E11.9 Type 2 diabetes mellitus without complications; R09.02 Hypoxemia; R31.29 Other microscopic hematuria; R79.1 Abnormal coagulation profile; F17.210 Nicotine dependence, cigarettes, uncomplicated
CPT/HCPCS: 36415; 71045; 71046; 71275; 80048; 80061; 80076; 81001; 82947; 83036; 83605; 83735; 83880; 84100; 84145; 84439; 84443; 84484; 85025; 85379; 85610; 85652; 86140; 86592; 87040; 87389; 87490; 87590; 93005; 93970; 94010; 94640; 94760; 96361; 96365; 97116; 97161; 99285; J1650; J1940; J2270; J2405; J2543; J2930; J7030; J7512; J7605; Q9967

== ENCOUNTER 2022-03-18 04:21 | Emergency (ER) | payer OTHER ==
[2022-03-18 04:43] LABS: Absolute Lymphocytes (CBC) 1.1 K/uL (0.7-4.9); Hematocrit 44.2 % (39.6-49.0); Lymphocytes % 15.2 % (15.3-44.8); MCV 87.3 fL (80-100); MPV 8.5 fL (7.6-11.3); RBC Red Blood Cell Count 5.07 M/uL (4.33-5.43)
[2022-03-18 04:55] LABS: Potassium 4.4 mmol/L (3.5-5.1)
[2022-03-18] MEDS ORDERED: MAGNES/ALUMIN/SIMET 30ML UCUP ONE (04:57)
[2022-03-18] MEDS ORDERED: LIDOCAINE VISCOUS 2% SOLN 15 ML UDC ONE (04:57)
[2022-03-18 05:02] LABS: Troponin High Sensitivity 5.6 pg/mL (<58.9)
[2022-03-18 05:29] LABS: Bilirubin Direct 0.2 mg/dL (0-0.2); Bilirubin Total 0.8 mg/dL (0.2-1.0); Protein, Total 7.2 g/dL (6.4-8.2)
[2022-03-18] MEDS ORDERED: KETOROLAC 30 MG/ML INJ ONE (06:00)
[2022-03-18] MEDS ORDERED: MORPHINE 4 MG/ML SYR ONE (06:24)
[2022-03-18] MEDS ORDERED: ONDANSETRON 4 MG/2 ML VIAL ONE (06:25)
--- NOTE | 2022-03-18 06:47 | ER ---
Nurse's Notes [facility] Name: Orlando Peralta Age: 41 yrs Sex: Male : 1980 Arrival Date: 03/18/2022 Time: 04:30 Bed 19 Private MD: Diagnosis: Epigastric pain;Vomiting Presentation: 03/18 04:37 Chief complaint: Patient states: epigastric pain of 8,onset 0000 from sleeping and pf1 sometimes radiates to right lower back. Coronavirus screen: Vaccine status: Patient reports receiving the 2nd dose of the covid vaccine. 3rd booster shot Client denies travel out of the [place] in the last 14 days. At this time, the client does not indicate any symptoms associated with coronavirus-19. Ebola Screen: Patient negative for fever greater than or equal to 101.5 degrees Fahrenheit, and additional compatible Ebola Virus Disease symptoms. Initial Sepsis Screen: Does the patient meet any 2 criteria? No. Patient's initial sepsis screen is negative. Does the patient have a suspected source of infection? No. Patient's initial sepsis screen is negative. Risk Assessment: Do you want to hurt yourself or someone else? Patient reports no desire to harm self or others. Onset of symptoms was March 18, 2022 at 00:00. 04:37 Method Of Arrival: Wheelchair pf1 04:37 Acuity: JANUSZ 3 pf1 Historical: - Allergies: 05:22 No Known Allergies; pf1 - Home Meds: 05:22 None [Active]; pf1 - PMHx: 05:22 Hypertensive disorder; pulmonary embolism; Pneumonia; acid reflux; pf1 - PSHx: 05:22 None; pf1 - Immunization history:: Adult Immunizations not up to date, Client reports receiving the 2nd dose of the Covid vaccine, 3rd dose Last tetanus immunization: < 5 years ago Flu vaccine is not up to date. - Social history:: Smoking status: Patient/guardian denies using tobacco, Stopped _ months ago 6 Patient/guardian denies using alcohol, street drugs. Screenin:00 [facility] ED Fall Risk Assessment (Adult) History of falling in the last 3 months, pf1 including since admission No falls in past 3 months (0 pts) Confusion or Disorientation No (0 pts) Intoxicated or Sedated No (0 pts) Impaired Gait No (0 pts) Mobility Assist Device Used No (0 pt) Altered Elimination No (0 pt) Score/Fall Risk Level 0 - 2 = Low Risk Oriented to surroundings, Maintained a safe environment, Educated pt \T\ family on fall prevention, incl call for assistance when getting out of bed, Assessed \T\ reinforced patient's understanding of fall precautions, Provided non-skid footwear, Hourly rounding (assess needs \T\ fall precautionary measures) done, Used ambulatory aids as needed (educated on \T\ assisted with), Used gait belt as appropriate. 05:00 Abuse screen: Denies threats or abuse. Nutritional screening: No deficits noted. pf1 Tuberculosis screening: No symptoms or risk factors identified. Assessment: 04:37 General: Appears in no apparent distress. uncomfortable, obese, well groomed, well pf1 developed, Behavior is calm, cooperative, appropriate for age, quiet. 04:37 Pain: Complains of pain in epigastric pain of 8 and intermittent lower right back pain pf1 Pain radiates to right lower back pain Pain currently is 8 out of 10 on a pain scale. Pain began 0000. Neuro: No deficits noted. Level of Consciousness is awake, alert, obeys commands, Oriented to person, place, time, situation. Cardiovascular: No deficits noted. Capillary refill < 3 seconds Patient's skin is warm and dry. Respiratory: No deficits noted. Airway is patent Trachea midline Respiratory effort is even, unlabored, Respiratory pattern is regular, symmetrical, Breath sounds are clear bilaterally. GI: Abdomen is round non-distended, obese, Bowel sounds present X 4 quads. Abd is soft X 4 quads Abdomen is tender to palpation in epigastric region. : No deficits noted. No signs and/or symptoms were reported regarding the genitourinary system. EENT: No deficits noted. No signs and/or symptoms were reported regarding the EENT system. 05:20 Reassessment: Patient appears in no apparent distress at this time. Patient and/or pf1 family updated on plan of care and expected duration. Pain level reassessed. Patient states symptoms have not improved. 06:01 Reassessment: Patient appears in no apparent distress at this time. Patient and/or pf1 family updated on plan of care and expected duration. Pain level reassessed. Patient is alert, oriented x 3, equal unlabored respirations, skin warm/dry/pink. Patient states symptoms have improved. 06:45 Reassessment: Patient appears in no apparent distress at this time. Patient and/or pf1 family updated on plan of care and expected duration. Pain level reassessed. Patient is alert, oriented x 3, equal unlabored respirations, skin warm/dry/pink. Patient states feeling better. Patient states symptoms have improved. Vital Signs: 04:37 BP 142 / 78; Pulse 70; Resp 14; Temp 98.1; Pulse Ox 100% on R/A; Weight 127.01 kg; pf1 Height 5 ft. 10 in. (177.80 cm); Pain 8/10; 05:20 BP 133 / 82; Pulse 72; Resp 19; Pulse Ox 100% on R/A; pf1 06:00 BP 121 / 84; Pulse 76; Resp 16; Pulse Ox 100% ; Pain 6/10; pf1 06:45 BP 132 / 70; Pulse 81; Resp 18; Pulse Ox 99% on R/A; Pain 3/10; pf1 04:37 Body Mass Index 40.18 (127.01 kg, 177.80 cm) pf1 ED Course: 04:30 Patient arrived in ED. pf1 04:31 Initial lab(s) drawn, by me, sent to lab. Inserted saline lock: 20 gauge in left pf1 antecubital area, using aseptic technique. Blood collected. 04:34 Flora Fernandes MD is Attending Physician. sd2 04:37 Christie french, QUANG is Primary Nurse. pf1 04:37 Client placed on continuous cardiac and pulse oximetry monitoring. NIBP monitoring pf1 applied. air sampling and monitoring on. 04:37 Patient has correct armband on for positive identification. Placed in gown. Bed in low pf1 position. Call light in reach. Side rails up X 1. 04:40 Triage completed. pf1 05:13 Arm band placed on. pf1 05:14 XRAY Chest (1 view) In Process Unspecified. EDMS 06:46 Nixon Taylor MD is Referral Physician. sd2 07:02 No provider procedures requiring assistance completed. IV discontinued, intact, pf1 bleeding controlled, No redness/swelling at site. Pressure dressing applied. Patient maintains SpO2 saturation greater than 95% on room air. Administered Medications: 05:00 Drug: GI Cocktail without - (Maalox Suspension 30 ml, Lidocaine Liquid 2 % 15 pf1 ml) Route: PO; 05:52 Follow up: Response: No adverse reaction; Marked relief of symptoms; Pain is decreased; pf1 RASS: Alert and Calm (0) 05:03 CANCELLED (Duplicate Order): GI Cocktail with - (Maalox Suspension 30 ml, pf1 Lidocaine Liquid 2 % 20 ml, Phenobarbital-Belladonna 10 ml) PO once 05:58 Drug: Ketorolac 15 mg Route: IVP; Site: left antecubital; pf1 06:22 Follow up: Response: No adverse reaction; Pain is increased; RASS: Alert and Calm (0) pf1 06:25 Drug: morphine 4 mg Route: IVP; Infused Over: 4 mins; Site: left antecubital; pf1 06:45 Follow up: Response: No adverse reaction; Marked relief of symptoms; Pain is decreased; pf1 RASS: Alert and Calm (0) 06:25 Drug: Zofran (Ondansetron) 4 mg Route: IVP; Site: left antecubital; pf1 06:45 Follow up: Response: No adverse reaction; Marked relief of symptoms pf1 Medication: 07:06 VIS not applicable for this client. pf1 Outcome: 06:46 Discharge ordered by . sd2 07:05 Discharged to home ambulatory, with family. pf1 07:05 Condition: improved 07:05 Discharge instructions given to patient, Instructed on discharge instructions, follow up and referral plans. medication usage, Demonstrated understanding of instructions, follow-up care, medications, Prescriptions given X 1. 07:06 Patient left the ED. pf1 Signatures: Dispatcher [employer] EDFlora Estrada MD MD sd2 Christie french, RN RN pf1
--- NOTE | 2022-03-18 06:47 | EDPHYS ---
Physician Documentation [facility] Name: Orlando Peralta Age: 41 yrs Sex: Male : 1980 Arrival Date: 03/18/2022 Time: 04:30 Bed 19 Private MD: FRANK Physician Flora Fernandes HPI: 03/18 04:49 This 41 yrs old Male presents to ER via Wheelchair with complaints of Chest sd2 Pain. 04:49 41-year-old male presents with chief complaint of epigastric pain that started around sd2 midnight tonight waking him up out of his sleep. He reports the pain has been constant since then. He reports he does have some prior issues with heartburn but it has not felt this way in the past. He denies having pain like this previously. He reports that he did eat late last night and thought that might of contributed to it. He did make himself vomit once to see if it would help and it did not. Otherwise, he has not had any nausea, vomiting, diarrhea or urinary symptoms. He denies any significant chest pain or shortness of breath.. Historical: - Allergies: 05:22 No Known Allergies; pf1 - Home Meds: 05:22 None [Active]; pf1 - PMHx: 05:22 Hypertensive disorder; pulmonary embolism; Pneumonia; acid reflux; pf1 - PSHx: 05:22 None; pf1 - Immunization history:: Adult Immunizations not up to date, Client reports receiving the 2nd dose of the Covid vaccine, 3rd dose Last tetanus immunization: < 5 years ago Flu vaccine is not up to date. - Social history:: Smoking status: Patient/guardian denies using tobacco, Stopped _ months ago 6 Patient/guardian denies using alcohol, street drugs. ROS: 04:49 Constitutional: Negative for fever, chills, and weight loss, Eyes: Negative for injury, sd2 pain, redness, and discharge, Cardiovascular: Negative for chest pain, palpitations, and edema, Respiratory: Negative for shortness of breath, cough, wheezing. 04:49 : Negative for dysuria, frequency or hematuria. MS/Extremity: Negative for injury and deformity, Skin: Negative for injury, rash, and discoloration, Neuro: Negative for headache, numbness and tingling. 04:49 Abdomen/GI: Positive for abdominal pain, vomiting, Negative for nausea, diarrhea. Exam: 04:49 Constitutional: This is a well developed, well nourished patient who is awake, alert, sd2 and in no acute distress. Head/Face: Normocephalic, atraumatic. Eyes: EOMI, normal conjunctiva bilaterally Chest/axilla: Normal chest wall appearance and motion. Nontender with no deformity. Cardiovascular: Regular rate and rhythm with a normal S1 and S2. No gallops, murmurs, or rubs. 2+ distal pulses. Respiratory: Lungs have equal breath sounds bilaterally, clear to auscultation and percussion. No rales, rhonchi or wheezes noted. No increased work of breathing, no retractions or nasal flaring. Abdomen/GI: Soft, ND, predominantly epigastric with mild RUQ tenderness on exam, no rebound or guarding. Skin: Warm, dry with normal turgor. Normal color with no rashes, no lesions, and no evidence of cellulitis. MS/ Extremity: Pulses equal, no cyanosis. Neurovascular intact. Full, normal range of motion. Ambulatory without difficulty. Psych: Awake, alert, with orientation to person, place and time. Behavior, mood, and affect are within normal limits. 04:49 ECG was reviewed by the Attending Physician. NSR, rate 68, no STEMI criteria Vital Signs: 04:37 BP 142 / 78; Pulse 70; Resp 14; Temp 98.1; Pulse Ox 100% on R/A; Weight 127.01 kg; pf1 Height 5 ft. 10 in. (177.80 cm); Pain 8/10; 05:20 BP 133 / 82; Pulse 72; Resp 19; Pulse Ox 100% on R/A; pf1 06:00 BP 121 / 84; Pulse 76; Resp 16; Pulse Ox 100% ; Pain 6/10; pf1 06:45 BP 132 / 70; Pulse 81; Resp 18; Pulse Ox 99% on R/A; Pain 3/10; pf1 04:37 Body Mass Index 40.18 (127.01 kg, 177.80 cm) pf1 MDM: 04:34 Patient medically screened. sd2 04:49 Differential diagnosis: Gastritis, cholecystitis, pancreatitis, SBO, diverticulitis, sd2 kidney stone, appendicitis, UTI, dehydration, electrolyte abnormality among others. Data reviewed: vital signs, nurses notes, EKG. Independent interpretation of the following test(s) in the Emergency Department EKG: See my EKG interpretation above electronic device monitor: rate is 68 beats/min, Rhythm is normal sinus rhythm, with no ectopy, Interpretation: normal rate, normal rhythm, Rhythm Strip Interpretation Rate: 68BPM Rhythm: regular. 06:43 Data reviewed: lab test result(s). Test considered but Not performed: Ultrasound Not sd2 indicatd. CT: Not indicated. Care significantly affected by the following chronic conditions: Hypertension. Counseling: I had a detailed discussion with the patient and/or guardian regarding: the historical points, exam findings, and any diagnostic results supporting the discharge/admit diagnosis, lab results, the need for outpatient follow up, to return to the emergency department if symptoms worsen or persist or if there are any questions or concerns that arise at home. Medication response: GI Cocktail partially relieved the patient's pain, morphine markedly relieved the patient's pain. Symptoms have improved, Toradol did not change the patient's pain. ED course: Labs reviewed and grossly WNCL. Pt feeling improved after GI cocktail and further treatment and resting comfortably with benign abdominal exam at time of my repeat exam. Suspect gastritis. I do not see further indication for emergent workup at this time or further emergent imaging based on my clinical exam at this time. Pt is comfortable with plan for discharge and outpatient follow up and verbalizes understanding of discharge plan and strict return precautions. . 03/18 04:31 Order name: Basic Metabolic Panel; Complete Time: 05:27 pf03/18 04:31 Order name: CBC with Diff 03/18 04:31 Order name: D-Dimer; Complete Time: 04:49 pf03/18 04:31 Order name: Troponin HS; Complete Time: 05:27 pf03/18 04:49 Order name: Hepatic Function; Complete Time: 05:48 sd2 03/18 04:49 Order name: Lipase; Complete Time: 05:48 sd03/18 04:31 Order name: XRAY Chest (1 view) 03/18 04:31 Order name: EKG; Complete Time: 04:31 pf03/18 04:31 Order name: Cardiac monitoring; Complete Time: 04:31 pf03/18 04:31 Order name: EKG - Nurse/Tech; Complete Time: 04:31 pf1 03/18 04:31 Order name: IV Saline Lock; Complete Time: 04:31 pf1 03/18 04:31 Order name: Labs collected and sent; Complete Time: 04:31 pf1 03/18 04:31 Order name: O2 Per Protocol; Complete Time: 04:31 pf1 03/18 04:31 Order name: O2 Sat Monitoring; Complete Time: 04:31 pf1 Administered Medications: 05:00 Drug: GI Cocktail without - (Maalox Suspension 30 ml, Lidocaine Liquid 2 % 15 pf1 ml) Route: PO; 05:52 Follow up: Response: No adverse reaction; Marked relief of symptoms; Pain is decreased; pf1 RASS: Alert and Calm (0) 05:03 CANCELLED (Duplicate Order): GI Cocktail with - (Maalox Suspension 30 ml, pf1 Lidocaine Liquid 2 % 20 ml, Phenobarbital-Belladonna 10 ml) PO once 05:58 Drug: Ketorolac 15 mg Route: IVP; Site: left antecubital; pf1 06:22 Follow up: Response: No adverse reaction; Pain is increased; RASS: Alert and Calm (0) pf1 06:25 Drug: morphine 4 mg Route: IVP; Infused Over: 4 mins; Site: left antecubital; pf1 06:45 Follow up: Response: No adverse reaction; Marked relief of symptoms; Pain is decreased; pf1 RASS: Alert and Calm (0) 06:25 Drug: Zofran (Ondansetron) 4 mg Route: IVP; Site: left antecubital; pf1 06:45 Follow up: Response: No adverse reaction; Marked relief of symptoms pf1 Disposition Summary: 03/18/22 06:46 Discharge Ordered Location: Home sd2 Problem: new sd2 Symptoms: have improved sd2 Condition: Stable sd2 Diagnosis - Epigastric pain sd2 - Vomiting sd2 Followup: sd2 - With: Private Physician - When: 2 - 3 days - Reason: Recheck today's complaints, Continuance of care, Re-evaluation by your physician Followup: sd2 - With: - When: 1 week - Reason: Worsening of condition, Recheck today's complaints, Continuance of care Discharge Instructions: - Discharge Summary Sheet sd2 - Abdominal Pain, Adult sd2 - Food Choices for Gastroesophageal Reflux Disease, Adult sd2 - Gastritis, Adult sd2 - Gastroesophageal Reflux Disease, Adult sd2 Forms: - Medication Reconciliation Form sd2 - Thank You Letter sd2 - Antibiotic Education sd2 - Prescription Opioid Use sd2 - Work release form ds4 Prescriptions: - Carafate 1 gram Oral Tablet - take 1 tablet by ORAL route 4 times per day take on an empty stomach, beginning sd2 on waking prior to meals and last dose at bedtime; 100 tablet; Refills: 0, Product Selection Permitted Signatures: Dispatcher [employer] Flora Gruber MD MD sd2 Christie french RN RN pf1 Corrections: (The following items were deleted from the chart) 05:03 04:49 GI Cocktail with - (Maalox 30 ml, Lidocaine 2 % 20 ml, pf1 Phenobarbital-Belladonna 10 ml) PO once ordered. sd2 05:03 05:03 GI Cocktail with - (Maalox 30 ml, Lidocaine 2 % 20 ml, pf1 Phenobarbital-Belladonna 10 ml) PO once ordered. pf1
[2022-03-18 07:30] VITALS: BP 142/78; TEMP 98.1; O2SAT 100
--- NOTE | 2022-03-19 13:46 | RAD REPORT ---
EXAM DESCRIPTION: RAD - Chest Single View - 03/18/2022 5:12 am CLINICAL HISTORY: The patient is 41 years old and is Male; CHEST PAIN TECHNIQUE: Single view of the chest. COMPARISON: No relevant prior studies available. FINDINGS: Lungs: Linear atelectasis or scarring in the right upper lobe. No fluid overload or consolidation. Pleural space: Unremarkable. No pneumothorax. Heart: Unremarkable. No cardiomegaly. Mediastinum: Unremarkable. Bones/joints: Unremarkable. No acute fracture visualized. Upper abdomen: No free air in the visualized upper abdomen. IMPRESSION: Linear atelectasis or scarring in the right upper lobe. Electronically signed by: Flora Ward MD 03/18/2022 5:38 AM SENIOR QUALITY METHODS SPECIALIST Due to temporary technical issues with the PACS/Fluency reporting system, reports are being signed by the in house radiologists without review as a courtesy to insure prompt reporting. The interpreting radiologist is fully responsible for the content of the report.
== END 2022-03-18 07:06 | disposition home or self-care (01) ==
LOC: ER 04:21
DX: R10.13 Epigastric pain (principal); R11.10 Vomiting, unspecified; I10 Essential (primary) hypertension; Z86.711 Personal history of pulmonary embolism
CPT/HCPCS: 93005; 85025; 80048; 36415; 85379; 80076; 84484; 83690; 71045; 96375; 96374; 99285; J2405

== ENCOUNTER 2022-03-19 10:15 | Emergency (ER) | payer OTHER ==
[2022-03-19 11:49] LABS: Absolute Lymphocytes (CBC) 0.6 K/uL (0.7-4.9); Lymphocytes % 4.6 % (15.3-44.8); MCV 86.5 fL (80-100); MPV 8.3 fL (7.6-11.3); Protime INR 1.19; RBC Red Blood Cell Count 5.31 M/uL (4.33-5.43)
[2022-03-19 12:02] LABS: Albumin 4.1 g/dL (3.4-5.0); Bilirubin Total 2.6 mg/dL (0.2-1.0); Magnesium 2.1 mg/dL (1.6-2.4); Potassium 4.7 mmol/L (3.5-5.1); Protein, Total 8.2 g/dL (6.4-8.2); Troponin High Sensitivity 5.5 pg/mL (<58.9)
--- NOTE | 2022-03-19 12:19 | RAD REPORT ---
EXAM DESCRIPTION: CTAbdomen Pelvis W Contrast - 03/19/2022 11:45 am CLINICAL HISTORY: Abdominal pain. ABD PAIN COMPARISON: No comparisons TECHNIQUE: Biphasic CT imaging of the abdomen and pelvis was performed with 100 ml non-ionic IV cont rast. All CT scans are performed using dose optimization technique as appropriate and may include automated exposure control or mA/KV adjustment according to patient size. FINDINGS: Linear atelectasis right lung base.Small hiatal hernia. Diffuse fatty liver. Distended gallbladder with multiple stones and wall thickening. The spleen, panc reas, adrenal glands and kidneys are within normal limits. No bowel obstruction, free air, free fluid or abscess. Moderate stool is present throughout the colon . The appendix is normal. No evidence of significant lymphadenopathy. No suspicious bony findings. IMPRESSION: Distended gallbladder with multiple stones and mild surrounding inflammation likely edward cates acute cholecystitis. Recommend correlation with gallbladder ultrasound. Diffuse fatty liver.
--- NOTE | 2022-03-19 12:34 | ER ---
Nurse's Notes [facility] Name: Orlando Peralta Age: 41 yrs Sex: Male : 1980 Arrival Date: 03/19/2022 Time: 10:19 Bed 16 Private MD: Diagnosis: Acute cholecystitis;Disease of biliary tract, unspecified-Tbili 2.6 Presentation: 03/19 10:26 Chief complaint: Patient states: Pain in epigastric area that radiates to RUQ and into ph sub-sternal area, states that he was seen here Saturday for similar symptoms and admitted, dx w/ GERD and instructed to follow up w/ PCP but he is unable to get in anywhere until tomorrow. Coronavirus screen: Vaccine status: Patient reports receiving the 2nd dose of the covid vaccine. Ebola Screen: No symptoms or risks identified at this time. 10:26 Method Of Arrival: Ambulatory ph 10:30 Initial Sepsis Screen: Does the patient meet any 2 criteria? No. Patient's initial ph sepsis screen is negative. Does the patient have a suspected source of infection? No. Patient's initial sepsis screen is negative. Risk Assessment: Do you want to hurt yourself or someone else? Patient reports no desire to harm self or others. Onset of symptoms was March 19, 2022. 10:30 Acuity: JANUSZ 3 ph Triage Assessment: 10:30 Pain: Complains of pain in epigastric area and right upper quadrant. ph Historical: - Allergies: 10:29 No Known Allergies; ph - PMHx: 10:29 acid reflux; diabetes mellitus; Hypertensive disorder; Pneumonia; Pulmonary Embolism; ph - Immunization history:: Adult Immunizations up to date. - Social history:: Smoking status: Patient/guardian denies using tobacco, the patient reports quitting approximately 1 years ago. Assessment: 15:28 Reassessment: An order was placed for patients home meds; spoke with patient and he jh5 states he takes 0 medicines daily. Vital Signs: 10:26 Pulse 110; Resp 18; Temp 97.8; Pulse Ox 95% on R/A; Weight 127.01 kg; Height 5 ft. 10 ph in. (177.80 cm); 10:30 BP 127 / 84; ph 12:33 BP 126 / 90; Pulse 104; Resp 18; Pulse Ox 96% ; jh5 14:00 BP 145 / 98; Pulse 100; Resp 18; Temp 99.9(O); Pulse Ox 99% ; jh5 10:26 Body Mass Index 40.18 (127.01 kg, 177.80 cm) ph ED Course: 10:19 Patient arrived in ED. mr 10:23 Silva Dykes, ZEENAT is PHCP. snw 10:23 Kena Johnson MD is Attending Physician. snw 10:30 Arm band placed on Patient placed in waiting room, Patient notified of wait time. ph 10:31 Triage completed. ph 11:39 CBC with Diff Sent. bc6 11:39 Magnesium Sent. bc6 11:39 NT PRO-BNP Sent. bc6 11:39 PT-INR Sent. bc6 11:39 Troponin HS Sent. bc6 11:39 Initial lab(s) drawn, by me, sent to lab. EKG done. Inserted saline lock: 20 gauge in bc6 left antecubital area, using aseptic technique. 11:47 CT Abd/Pelvis - IV Contrast Only In Process Unspecified. EDMS 12:22 XRAY Chest (1 view) In Process Unspecified. EDMS 12:34 Manan Galvan MD is Hospitalizing Provider. snw 13:14 US Abdomen Limited In Process Unspecified. EDMS Administered Medications: 12:44 Drug: Zosyn (piperacillin-tazobactam) 3.375 grams Route: IVPB; Infused Over: 60 mins; jh5 Site: left antecubital; 12:44 Drug: fentaNYL (PF) 50 mcg Route: IVP; Site: left antecubital; 5 12:45 Drug: NS 0.9% 1000 ml Route: IV; Rate: 1 bolus; Site: left antecubital; jh5 14:34 Drug: morphine 2 mg Route: IVP; Infused Over: 4 mins; Site: left antecubital; jh5 15:50 Drug: Dilaudid (HYDROmorphone) 1 mg Route: IVP; Site: left antecubital; jh5 15:50 Drug: NS 0.9% 1000 ml Route: IV; Rate: 125 ml/hr; Site: left antecubital; 5 Outcome: 12:34 Decision to Hospitalize by Provider. snw 15:06 ER care complete, transfer ordered by . snw 17:20 Patient left the ED. jh5 Signatures: Dispatcher [employer] EDMS Silva Dykes, PHOTO CHECKER-C PHOTO CHECKER-Csnw Cielo Rogers Patricia, RN RN Erin Braden RN RN [facility] Nella Hensley [facility]
--- NOTE | 2022-03-19 12:34 | EDPHYS ---
Physician Documentation [facility] Name: Orlando Peralta Age: 41 yrs Sex: Male : 1980 Arrival Date: 03/19/2022 Time: 10:19 Bed 16 Private MD: ED Physician Kena Johnson HPI: 03/19 10:50 This 41 yrs old Male presents to ER via Ambulatory with complaints of snw Abdominal Pain. 10:50 The patient presents with abdominal pain in the epigastric area. Onset: The snw symptoms/episode began/occurred suddenly, last night, and became worse this morning. Associated signs and symptoms: Pertinent positives: nausea and vomiting. The symptoms are described as burning, constant, shooting. Severity of pain: At its worst the pain was moderate severe. in ED yesterday for same. The patient has not recently seen a physician, and does not have an established primary care provider. Historical: - Allergies: 10:29 No Known Allergies; ph - PMHx: 10:29 acid reflux; diabetes mellitus; Hypertensive disorder; Pneumonia; Pulmonary Embolism; ph - Immunization history:: Adult Immunizations up to date. - Social history:: Smoking status: Patient/guardian denies using tobacco, the patient reports quitting approximately 1 years ago. ROS: 10:50 Constitutional: Negative for fever, chills, and weight loss, Eyes: Negative for injury, snw pain, redness, and discharge, ENT: Negative for injury, pain, and discharge, Neck: Negative for injury, pain, and swelling, Cardiovascular: Negative for chest pain, palpitations, and edema, Respiratory: Negative for shortness of breath, cough, wheezing, and pleuritic chest pain, Back: Negative for injury and pain, : Negative for injury, bleeding, discharge, and swelling, MS/Extremity: Negative for injury and deformity, Skin: Negative for injury, rash, and discoloration, Neuro: Negative for headache, weakness, numbness, tingling, and seizure, Psych: Negative for depression, anxiety, suicide ideation, homicidal ideation, and hallucinations. 10:50 Abdomen/GI: Positive for abdominal pain, nausea, vomiting, of the epigastric area, anterior aspect of right lateral abdomen and right upper quadrant. Exam: 10:49 Constitutional: This is a well developed, well nourished patient who is awake, alert, snw and in no acute distress. Head/Face: Normocephalic, atraumatic. Eyes: Pupils equal round and reactive to light, extra-ocular motions intact. Lids and lashes normal. Conjunctiva and sclera are non-icteric and not injected. Cornea within normal limits. Periorbital areas with no swelling, redness, or edema. ENT: Nares patent. No nasal discharge, no septal abnormalities noted. Tympanic membranes are normal and external auditory canals are clear. Oropharynx with no redness, swelling, or masses, exudates, or evidence of obstruction, uvula midline. Mucous membranes moist. Neck: Trachea midline, no thyromegaly or masses palpated, and no cervical lymphadenopathy. Supple, full range of motion without nuchal rigidity, or vertebral point tenderness. No Meningismus. Chest/axilla: Normal chest wall appearance and motion. Nontender with no deformity. No lesions are appreciated. Cardiovascular: Regular rate and rhythm with a normal S1 and S2. No gallops, murmurs, or rubs. Normal PMI, no JVD. No pulse deficits. Respiratory: Lungs have equal breath sounds bilaterally, clear to auscultation and percussion. No rales, rhonchi or wheezes noted. No increased work of breathing, no retractions or nasal flaring. Back: No spinal tenderness. No costovertebral tenderness. Full range of motion. Skin: Warm, dry with normal turgor. Normal color with no rashes, no lesions, and no evidence of cellulitis. MS/ Extremity: Pulses equal, no cyanosis. Neurovascular intact. Full, normal range of motion. Neuro: Awake and alert, GCS 15, oriented to person, place, time, and situation. Cranial nerves II-XII grossly intact. Motor strength 5/5 in all extremities. Sensory grossly intact. Cerebellar exam normal. Normal gait. Psych: Awake, alert, with orientation to person, place and time. Behavior, mood, and affect are within normal limits. 10:49 Abdomen/GI: Inspection: distension, Bowel sounds: normal, Palpation: moderate abdominal tenderness, in the epigastric area and right upper quadrant. Vital Signs: 10:26 Pulse 110; Resp 18; Temp 97.8; Pulse Ox 95% on R/A; Weight 127.01 kg; Height 5 ft. 10 ph in. (177.80 cm); 10:30 BP 127 / 84; ph 12:33 BP 126 / 90; Pulse 104; Resp 18; Pulse Ox 96% ; jh5 14:00 BP 145 / 98; Pulse 100; Resp 18; Temp 99.9(O); Pulse Ox 99% ; jh5 10:26 Body Mass Index 40.18 (127.01 kg, 177.80 cm) ph MDM: 10:23 Patient medically screened. snw 12:34 Differential diagnosis: acute coronary syndrome, appendicitis, cholecystitis, snw Cholelithiasis, gastritis, Hepatitis, pancreatitis. Data reviewed: vital signs, nurses notes. Management of patient was discussed with the following: Hospitalist: Will admit to Hospitalist group secondary to PMH. Multiple Coil Winder: Discussed with Dr. Dwyer for surgical consideration. 13:19 Management of patient was discussed with the following: discussed lab results with Dr. saleem Dwyer, need GI eval, transfer pt. Counseling: I had a detailed discussion with the patient and/or guardian regarding: the historical points, exam findings, and any diagnostic results supporting the discharge/admit diagnosis, the presence of at least one elevated blood pressure reading (>120/80) during this emergency department visit, radiology results. 13:41 ED course: Hospitalist notified of surgeon request for transfer, admission request snw cancelled. 14:05 ED course: transfer initiated. 03/19 10:36 Order name: CBC with Diff; Complete Time: 11:51 w 03/19 10:36 Order name: Magnesium; Complete Time: 12:03 w 03/19 10:36 Order name: NT PRO-BNP; Complete Time: 12:03 w 03/19 10:36 Order name: PT-INR; Complete Time: 11:51 snw 03/19 10:36 Order name: Troponin HS; Complete Time: 12:03 snw 03/19 10:36 Order name: CMP; Complete Time: 12:03 snw 03/19 10:36 Order name: XRAY Chest (1 view); Complete Time: 13:15 snw 03/19 10:36 Order name: CT Abd/Pelvis - IV Contrast Only; Complete Time: 12:27 snw 03/19 12:39 Order name: US Abdomen Limited; Complete Time: 13:25 snw 03/19 13:04 Order name: SARS RAPID; Complete Time: 14:45 snw 03/19 15:08 Order name: Add On-Lab snw 03/19 10:36 Order name: EKG; Complete Time: 10:36 snw 03/19 10:36 Order name: Cardiac monitoring; Complete Time: 12:49 snw 03/19 10:36 Order name: EKG - Nurse/Tech; Complete Time: 11:39 snw 03/19 10:36 Order name: IV Saline Lock; Complete Time: 11:39 snw 03/19 10:36 Order name: Labs collected and sent; Complete Time: 11:39 snw 03/19 10:36 Order name: O2 Per Protocol; Complete Time: 12:49 snw 03/19 10:36 Order name: O2 Sat Monitoring; Complete Time: 12:49 snw 03/19 12:29 Order name: NPO; Complete Time: 12:34 snw 03/19 14:56 Order name: Misc. Order: Please document home medications; Complete Time: 15:29 snw EC:40 Rate is 102 beats/min. Rhythm is regular. QRS [place] is Normal. T waves are Peaked. snw Clinical impression: Sinus tachycardia. Reviewed by me. Administered Medications: 12:44 Drug: Zosyn (piperacillin-tazobactam) 3.375 grams Route: IVPB; Infused Over: 60 mins; 5 Site: left antecubital; 12:44 Drug: fentaNYL (PF) 50 mcg Route: IVP; Site: left antecubital; 5 12:45 Drug: NS 0.9% 1000 ml Route: IV; Rate: 1 bolus; Site: left antecubital; 5 14:34 Drug: morphine 2 mg Route: IVP; Infused Over: 4 mins; Site: left antecubital; 5 15:50 Drug: Dilaudid (HYDROmorphone) 1 mg Route: IVP; Site: left antecubital; 5 15:50 Drug: NS 0.9% 1000 ml Route: IV; Rate: 125 ml/hr; Site: left antecubital; 5 Disposition Summary: 03/19/22 15:06 Transfer Ordered Transfer Location: [facility] snw Reason: Specialty snw Condition: Stable(03/19/22 15:06) snw Problem: new(03/19/22 15:06) snw Symptoms: are unchanged(03/19/22 15:06) snw Accepting Physician: Dr. Townsend(03/19/22 17:20) jh5 Diagnosis - Acute cholecystitis(03/19/22 15:06) snw - Disease of biliary tract, unspecified - Tbili 2.6 snw Forms: - Medication Reconciliation Form snw - SBAR form snw Signatures: Dispatcher [employer] EDMS Silva Dykes, TOOL COORDINATOR-C TOOL COORDINATOR-Csnw Chyna Lugo, RN RN Erin Braden, RN RN jh5 Corrections: (The following items were deleted from the chart) 13:38 12:34 Inpatient Admission snw snw 13:38 12:34 Manan Galvan snw snw 13:38 12:34 Telemetry/MedSurg (Inpatient) snw snw 13:38 12:34 Stable snw snw 13:38 12:34 new snw snw 13:38 12:34 are unchanged snw snw 13:38 12:34 Standard snw snw 13:38 12:34 snw snw 13:38 12:34 Acute cholecystitis snw snw 17:20 15:06 Dr. Townsend snw [facility]
[2022-03-19] MEDS ORDERED: PIPERACIL/TAZO 3.375 GM VIAL IV ONE (12:42)
[2022-03-19] MEDS ORDERED: FENTANYL CITR 100 MCG/2 ML ONE (12:42)
[2022-03-19] MEDS ORDERED: NA CHLORIDE 0.9% 1,000 ML ONE ×2 (12:42→15:46)
[2022-03-19] MEDS ORDERED: NA CHLORIDE 0.9% 100 ML ONE (12:42)
--- NOTE | 2022-03-19 13:09 | RAD REPORT ---
EXAM DESCRIPTION: Gena Single View03/19/2022 12:20 pm CLINICAL HISTORY: Chest pain COMPARISON: September 2021 FINDINGS: Linear opacities right upper lobe without significant change and are the sequela of an old pneumonia Lungs appear clear of acute infiltrate. Heart is normal size IMPRESSION: No acute abnormalities displayed
--- NOTE | 2022-03-19 13:23 | RAD REPORT ---
EXAM DESCRIPTION: US - Abdomen Exam Limited - 03/19/2022 1:13 pm CLINICAL HISTORY: Abdominal pain. COMPARISON: March 19, 2022 CT FINDINGS: Multiple gallstones. Mild gallbladder distention Gallbladder wall 5 millimeters The biliary tree is normal caliber. IMPRESSION: Cholelithiasis. Thickened gallbladder wall probably indicating cholecystitis
[2022-03-19] MEDS ORDERED: MORPHINE 2 MG/ML SYR ONE (14:34)
[2022-03-19 14:39] LABS: SARS-CoV-2 Antigen Rapid Res Negative (Negative)
[2022-03-19] MEDS ORDERED: HYDROMORPHONE HCL 1 MG/ML INJ ONE (15:46)
[2022-03-19 18:00] VITALS: BP 145/98; TEMP 99.9; O2SAT 99
== END 2022-03-19 17:20 | disposition short-term general hospital (02) ==
LOC: ER 10:15
DX: K81.0 Acute cholecystitis (principal); K83.9 Disease of biliary tract, unspecified; E11.9 Type 2 diabetes mellitus without complications; I10 Essential (primary) hypertension; Z20.822 Contact with and (suspected) exposure to COVID-19
CPT/HCPCS: 85025; 36415; 83735; 85610; 84484; 83690; 80053; 83880; 74177; 71045; 76705; 87811; Q9967; J2543; J3010; J2270; J1170; J7030 ×2; 93005

== ENCOUNTER 2022-08-10 09:55 | Emergency (ER) | payer OTHER ==
--- OUTSIDE RECORDS SUMMARY | 2022-08-10 09:58 | XMS REPORT | Continuity of Care Document ---
:1980 Author Organization [facility] t Address [address] [facility] [address] [place] [address] Care Team Providers Name Role Phone SYSTEM, PROVIDER NOT IN Primary Care Physician Unavailable ALONSO KHAN Attending Clinician Unavailable JACQUES JUDGE Admitting Clinician Unavailable Payers Payer Name Policy Type Policy Number Effective Date Expiration Date S noe [employer] [place] [id number] 2022 OPEN CHOICE PPO 00:00:00 Problems This patient has no known problems. Allergies, Adverse Reactions, Alerts Allergy Allergy Status Severity Reaction(s) Onset Inactive Treating Comm ents Source Name Type Date Date Clinician NO KNOWN Allergy Active [facility] Medications This patient has no known medications. Vital Signs Vital Name Observation Time Observation Value Comments Source HEIGHT 2022-03-19 19:58:00 177.8 cm WEIGHT 2022-03-19 19:58:00 130.591 kg HEIGHT 2022-03-19 19:58:00 177.8 cm WEIGHT 2022-03-19 19:58:00 130.591 kg Procedures This patient has no known procedures. Encounters Start End Encounter Admission Attending Care Care Encounter Source Date/Time Date/Time Type Type Clinicians Facility Department ID 2022-03-19 2022-03-23 Inpatient ER [facility] Gastro [id number] [facility] 18:35:00 18:23:00 ALONSO Results Test Description Test Time Test Comments Results Result Comments Source TISSUE EXAM 2022-03-23 Surgical Pathology 16:30:19 Report Case: [id number] Authorizing Provider: Iban Lni, Collected: 03/20/2022 01:49 PM Ordering Location: [address] Med/Surg Received: 03/21/2022 09:21 AM Pathologist: Darcy Marion MD Specimen: Gallbladder, GALLBLADDER GALLBLADDER, LAPAROSCOPIC CHOLECYSTECTOMY: - SEVERE ACUTE CHOLECYSTITIS WITH AREAS OF NECROSIS - CHOLELITHIASIS - CYSTIC DUCT MARGIN, UNREMARKABLE - BENIGN CYSTIC LYMPH NODE - NO DYSPLASIA OR MALIGNANCY SEEN Signing Pathologist Direct Phone Line: [phone] giovani signed by Darcy Marion MD on 03/23/2022 at 4:30 [id number] cholecystitis A. Gallbladder.Received in formalin labeled with the patient's information and labeled "gallbladder" is a specimen of gallbladder measuring 8.4 x 4 x 1.5 cm. Multiple calculi are palpated. There are some defects in the gallbladder wall, which is disrupted. The serosa is hemorrhagic, congested, and the liver bed is rough. The calculi are seen through defect in the liver bed. The cystic duct margin cannot be definitively identified. No cystic lymph node is present. The specimen is opened to reveal ulcerated, purulent, cmailo-green, mucosal surface. There is also a mucosal fold that is visible in the body of the gallbladder. Sectioning of this mucosal fold shows a ductular structure with some purulent material. Multiple green-black calculi, some multifaceted, are identified in the lumen ranging from 0.7 to 2.4 cm in maximum dimension. The wall thickness measures up to 0.9 cm. Superintendent Service sections including the cystic duct margin are submitted as follows: A1, one possible lymph nodeA2, A3, body of the gallbladder; A4, A5, mucosal fold. BH/ewPERFORMED COMPREHENSIVE METABOLIC PANEL 2022-03-23 06:05:56 Test Item Value Reference Range Interpretation Comme nts TOTAL PROTEIN (BEAKER) 6.8 gm/dL 6.0-8.5 (test code = 770) ALBUMIN (BEAKER) (test 3.4 g/dL 3.5-5.0 L code = 1145) ALKALINE PHOSPHATASE 122 U/L 30-115 H (BEAKER) (test code = 346) BILIRUBIN TOTAL (BEAKER) 1.3 mg/dL 0.1-1.2 H (test code = 377) SODIUM (BEAKER) (test 136 meq/L 135-148 code = 381) POTASSIUM (BEAKER) (test 4.1 meq/L 3.6-5.5 code = 379) CHLORIDE (BEAKER) (test 100 meq/L 98-106 code = 382) CO2 (BEAKER) (test code 25 meq/L 20-29 = 355) BLOOD UREA NITROGEN 11 mg/dL 10-26 (BEAKER) (test code = 354) CREATININE (BEAKER) 0.73 mg/dL 0.50-1.20 (test code = 358) GLUCOSE RANDOM (BEAKER) 132 mg/dL 70-110 H (test code = 652) CALCIUM (BEAKER) (test 9.2 mg/dL 8.5-10.5 code = 697) AST (SGOT) (BEAKER) 24 U/L 5-40 (test code = 353) ALT (SGPT) (BEAKER) 40 U/L 5-50 (test code = 347) EGFR (BEAKER) (test code 117 mL/min/1.73 Interpretation of eGFR values = 1092) sq m Stage Descripti on Result G1 Normal or high >=90 G2 Mildly decreased 60-89 G3a Mildly to moderately 45-5 9 G3b Moderately to severely 30- 44 G4 Severly decreased 15-29 G5 Kidney failure <15Repo rted eGFR is based on the CK D-EPI 2020 equation that d oes not use a race coefficien tEstimated GFR is not as accurate as Creatinine Clearance in pr edicting glomerular filt ration rate. Estimated GFR i s not applicable for dialysis katarzyna walton Ecology Teacher ID - LITOOperator ID - LITOOperator ID - LITOOperator ID - LITOOperator ID - LITOOperator ID - LITOOperator ID - LITOOperator ID - LITOOperator ID - LITOOperator ID - LITOOperator ID - LITOOperator ID - LITOOperator ID - LITOOperator ID - LITOOperator ID - LITOOperator ID - [id number] 06:05:39 Test Item Value Reference Range Interpretation Comments MAGNESIUM (BEAKER) (test code = 1.7 mg/dL 1.5-3.0 627) Ecology Teacher ID - LITOOperator ID - LITOOperator ID - LITOOperator ID - BERENICE [id number] 06:02:36 Test Item Value Reference Range Interpretation Comments PHOSPHORUS (BEAKER) (test code = 3.1 mg/dL 2.5-4.5 604) Ecology Teacher ID - LITOCBC W/PLT COUNT & AUTO [id number] 06:00:01 Test Item Value Reference Range Interpretation Comments WHITE BLOOD CELL COUNT (BEAKER) 12.2 K/ L 4.0-10.0 H (test code = 775) RED BLOOD CELL COUNT (BEAKER) 4.50 M/ L 4.20-5.80 (test code = 761) HEMOGLOBIN (BEAKER) (test code = 13.0 GM/DL 13.0-16.8 410) HEMATOCRIT (BEAKER) (test code = 39.6 % 36.0-50.0 411) MEAN CORPUSCULAR VOLUME (BEAKER) 88 fL 82-99 (test code = 753) MEAN CORPUSCULAR HEMOGLOBIN 28.9 pg 27.0-33.0 (BEAKER) (test code = 751) MEAN CORPUSCULAR HEMOGLOBIN CONC 32.8 GM/DL 32.0-36.0 (BEAKER) (test code = 752) RED CELL DISTRIBUTION WIDTH 13.7 % 12.0-15.0 (BEAKER) (test code = 412) PLATELET COUNT (BEAKER) (test 317 K/CU MM 150-430 code = 756) MEAN PLATELET VOLUME (BEAKER) 10.2 fL 6.0-11.5 (test code = 754) NUCLEATED RED BLOOD CELLS 0 /100 WBC 0-0 (BEAKER) (test code = 413) NEUTROPHILS RELATIVE PERCENT 75 % (BEAKER) (test code = 429) LYMPHOCYTES RELATIVE PERCENT 8 % (BEAKER) (test code = 430) MONOCYTES RELATIVE PERCENT 14 % (BEAKER) (test code = 431) EOSINOPHILS RELATIVE PERCENT 2 % (BEAKER) (test code = 432) BASOPHILS RELATIVE PERCENT 1 % (BEAKER) (test code = 437) NEUTROPHILS ABSOLUTE COUNT 9.19 K/ L 1.80-8.00 H (BEAKER) (test code = 670) LYMPHOCYTES ABSOLUTE COUNT 0.98 K/ L 1.48-4.50 L (BEAKER) (test code = 414) MONOCYTES ABSOLUTE COUNT (BEAKER) 1.65 K/ L 0.00-1.30 H (test code = 415) EOSINOPHILS ABSOLUTE COUNT 0.19 K/ L 0.00-0.50 (BEAKER) (test code = 416) BASOPHILS ABSOLUTE COUNT (BEAKER) 0.06 K/ L 0.00-0.20 (test code = 417) IMMATURE GRANULOCYTES-RELATIVE 1.00 % 0.00-0.00 H PERCENT (BEAKER) (test code = 2801) POCT-GLUCOSE [id number] 21:05:22 Test Item Value Reference Range Interpretation Comments POC-GLUCOSE METER 127 mg/dL 70-110 H : TESTED A T [facility] [address] (BEAKER) (test code [address], = [address]) [place] [id number]: Ecology Teacher/Techni natasha ID = [id number] for Matilde Trevino POCT-GLUCOSE [id number] 05:51:39 Test Item Value Reference Range Interpretation Comments POC-GLUCOSE METER 150 mg/dL 70-110 H : TESTED A T [facility] [address] (BEAKER) (test code [address], = [address]) [place] [id number]: Ecology Teacher/Techni natasha ID = [id number] for Joaquim cespedesNasrin COMPREHENSIVE METABOLIC [id number] 05:37:48 Test Item Value Reference Range Interpretation Comments TOTAL PROTEIN 6.6 gm/dL 6.0-8.5 (BEAKER) (test code = 770) ALBUMIN (BEAKER) 3.3 g/dL 3.5-5.0 L (test code = 1145) ALKALINE 108 U/L 30-115 PHOSPHATASE (BEAKER) (test code = 346) BILIRUBIN TOTAL 1.7 mg/dL 0.1-1.2 H (BEAKER) (test code = 377) SODIUM (BEAKER) 136 meq/L 135-148 (test code = 381) POTASSIUM (BEAKER) 4.2 meq/L 3.6-5.5 (test code = 379) CHLORIDE (BEAKER) 100 meq/L 98-106 (test code = 382) CO2 (BEAKER) (test 25 meq/L 20-29 code = 355) BLOOD UREA 9 mg/dL 10-26 L NITROGEN (BEAKER) (test code = 354) CREATININE 0.69 mg/dL 0.50-1.20 (BEAKER) (test code = 358) GLUCOSE RANDOM 117 mg/dL 70-110 H (BEAKER) (test code = 652) CALCIUM (BEAKER) 9.4 mg/dL 8.5-10.5 (test code = 697) AST (SGOT) 34 U/L 5-40 (BEAKER) (test code = 353) ALT (SGPT) 41 U/L 5-50 (BEAKER) (test code = 347) EGFR (BEAKER) 119 Interpretatio n of eGFR (test code = 1092) mL/min/1.[address] age Description sq m Result G1 Jenniffer l or high >=90 G2 Mildly decreased 60-89 G3a Mild ly to moderately 45-5 9 G3b Moderately to s everely 30-44 G4 Severl y decreased 15-29 G5 Kidney failure <15Reported eGF R is based on the CKD-EPI 2020 equation that d oes not use a race coefficientEsti mated GFR is not as accur ate as Creatinine Kacey gilda in predicting glom erular filtration rate . Estimated GFR is not appl icable for dialysis patien ts Ecology Teacher ID - [id number] ID - [id number] ID - [id number] ID - EDVO48Ougrrjrl ID - EPCZ22Lefccnha ID - YGGU14Trbddjiz ID - IRDG63Fanyuzwr ID - NHEU24Lisfkapc ID - ISEU58Ixyaruui ID - IBQT98Ekwommnt ID - CQZG78Tuifnrie ID - YWTQ78Prkvsdao ID - XNHA73Vebrogvg ID - JERZ86Sxpvkksd ID - YRWO89Zgvdcsha ID - [id number] 05:37:47 Test Item Value Reference Range Interpretation Comments MAGNESIUM (BEAKER) (test code = 1.8 mg/dL 1.5-3.0 627) Ecology Teacher ID - [id number] ID - [id number] ID - [id number] ID - [id number] 05:34:26 Test Item Value Reference Range Interpretation Comments PHOSPHORUS (BEAKER) (test code = 2.2 mg/dL 2.5-4.5 L 604) Ecology Teacher ID - [id number] W/PLT COUNT & AUTO [id number] 05:03:22 Test Item Value Reference Range Interpretation Comments WHITE BLOOD CELL COUNT (BEAKER) 13.5 K/ L 4.0-10.0 H (test code = 775) RED BLOOD CELL COUNT (BEAKER) 4.48 M/ L 4.20-5.80 (test code = 761) HEMOGLOBIN (BEAKER) (test code = 12.8 GM/DL 13.0-16.8 L 410) HEMATOCRIT (BEAKER) (test code = 39.3 % 36.0-50.0 411) MEAN CORPUSCULAR VOLUME (BEAKER) 88 fL 82-99 (test code = 753) MEAN CORPUSCULAR HEMOGLOBIN 28.6 pg 27.0-33.0 (BEAKER) (test code = 751) MEAN CORPUSCULAR HEMOGLOBIN CONC 32.6 GM/DL 32.0-36.0 (BEAKER) (test code = 752) RED CELL DISTRIBUTION WIDTH 13.8 % 12.0-15.0 (BEAKER) (test code = 412) PLATELET COUNT (BEAKER) (test 271 K/CU MM 150-430 code = 756) MEAN PLATELET VOLUME (BEAKER) 10.7 fL 6.0-11.5 (test code = 754) NUCLEATED RED BLOOD CELLS 0 /100 WBC 0-0 (BEAKER) (test code = 413) NEUTROPHILS RELATIVE PERCENT 78 % (BEAKER) (test code = 429) LYMPHOCYTES RELATIVE PERCENT 6 % (BEAKER) (test code = 430) MONOCYTES RELATIVE PERCENT 14 % (BEAKER) (test code = 431) EOSINOPHILS RELATIVE PERCENT 1 % (BEAKER) (test code = 432) BASOPHILS RELATIVE PERCENT 0 % (BEAKER) (test code = 437) NEUTROPHILS ABSOLUTE COUNT 10.51 K/ L 1.80-8.00 H (BEAKER) (test code = 670) LYMPHOCYTES ABSOLUTE COUNT 0.81 K/ L 1.48-4.50 L (BEAKER) (test code = 414) MONOCYTES ABSOLUTE COUNT (BEAKER) 1.89 K/ L 0.00-1.30 H (test code = 415) EOSINOPHILS ABSOLUTE COUNT 0.09 K/ L 0.00-0.50 (BEAKER) (test code = 416) BASOPHILS ABSOLUTE COUNT (BEAKER) 0.04 K/ L 0.00-0.20 (test code = 417) IMMATURE GRANULOCYTES-RELATIVE 0.80 % 0.00-0.00 H PERCENT (BEAKER) (test code = 9415) POCT-GLUCOSE [id number] 16:43:39 Test Item Value Reference Range Interpretation Comments POC-GLUCOSE METER 104 mg/dL 70-110 : TESTED A T [facility] [address] (BEAKER) (test code [address], = 15[address]) [place] [id number]: Ecology Teacher/Techni natasha ID = [id number] for Nasrin Odell POCT-GLUCOSE [id number] 11:56:09 Test Item Value Reference Range Interpretation Comments POC-GLUCOSE METER 144 mg/dL 70-110 H : TESTED A T [facility] [address] (BEAKER) (test code [address], = 1538) [place] [id number]: Ecology Teacher/Techni natasha ID = [id number] for Nasrin Odell BILIRUBIN, [id number] 09:19:29 Test Item Value Reference Range Interpretation Comments BILIRUBIN, INDIRECT (BEAKER) (test 0.9 mg/dL 0.0-1.1 code = 1554) Ecology Teacher ID - LITOPOCT-GLUCOSE [id number] 08:31:19 Test Item Value Reference Range Interpretation Comments POC-GLUCOSE METER 151 mg/dL 70-110 H : TESTED A T [facility] [address] (BEAKER) (test code [address], = [address]) [place] [id number]: Ecology Teacher/Techni natasha ID = [id number] for Nasrin Odell CBC W/PLT COUNT & AUTO [id number] 05:26:14 Test Item Value Reference Range Interpretation Comments WHITE BLOOD CELL COUNT (BEAKER) 14.2 K/ L 4.0-10.0 H (test code = 775) RED BLOOD CELL COUNT (BEAKER) 4.48 M/ L 4.20-5.80 (test code = 761) HEMOGLOBIN (BEAKER) (test code = 13.0 GM/DL 13.0-16.8 410) HEMATOCRIT (BEAKER) (test code = 39.8 % 36.0-50.0 411) MEAN CORPUSCULAR VOLUME (BEAKER) 89 fL 82-99 (test code = 753) MEAN CORPUSCULAR HEMOGLOBIN 29.0 pg 27.0-33.0 (BEAKER) (test code = 751) MEAN CORPUSCULAR HEMOGLOBIN CONC 32.7 GM/DL 32.0-36.0 (BEAKER) (test code = 752) RED CELL DISTRIBUTION WIDTH 13.8 % 12.0-15.0 (BEAKER) (test code = 412) PLATELET COUNT (BEAKER) (test 226 K/CU MM 150-430 code = 756) MEAN PLATELET VOLUME (BEAKER) 10.9 fL 6.0-11.5 (test code = 754) NUCLEATED RED BLOOD CELLS 0 /100 WBC 0-0 (BEAKER) (test code = 413) NEUTROPHILS RELATIVE PERCENT 83 % (BEAKER) (test code = 429) LYMPHOCYTES RELATIVE PERCENT 4 % (BEAKER) (test code = 430) MONOCYTES RELATIVE PERCENT 13 % (BEAKER) (test code = 431) EOSINOPHILS RELATIVE PERCENT 0 % (BEAKER) (test code = 432) BASOPHILS RELATIVE PERCENT 0 % (BEAKER) (test code = 437) NEUTROPHILS ABSOLUTE COUNT 11.71 K/ L 1.80-8.00 H (BEAKER) (test code = 670) LYMPHOCYTES ABSOLUTE COUNT 0.53 K/ L 1.48-4.50 L (BEAKER) (test code = 414) MONOCYTES ABSOLUTE COUNT (BEAKER) 1.78 K/ L 0.00-1.30 H (test code = 415) EOSINOPHILS ABSOLUTE COUNT 0.01 K/ L 0.00-0.50 (BEAKER) (test code = 416) BASOPHILS ABSOLUTE COUNT (BEAKER) 0.02 K/ L 0.00-0.20 (test code = 417) IMMATURE GRANULOCYTES-RELATIVE 1.10 % 0.00-0.00 H PERCENT (BEAKER) (test code = 2801) COMPREHENSIVE METABOLIC [id number] 05:03:57 Test Item Value Reference Range Interpretation Comments TOTAL PROTEIN 6.8 gm/dL 6.0-8.5 (BEAKER) (test code = 770) ALBUMIN (BEAKER) 3.6 g/dL 3.5-5.0 (test code = 1145) ALKALINE 99 U/L 30-115 PHOSPHATASE (BEAKER) (test code = 346) BILIRUBIN TOTAL 2.1 mg/dL 0.1-1.2 H (BEAKER) (test code = 377) SODIUM (BEAKER) 134 meq/L 135-148 L (test code = 381) POTASSIUM (BEAKER) 4.1 meq/L 3.6-5.5 (test code = 379) CHLORIDE (BEAKER) 101 meq/L 98-106 (test code = 382) CO2 (BEAKER) (test 22 meq/L 20-29 code = 355) BLOOD UREA 10 mg/dL 10-26 NITROGEN (BEAKER) (test code = 354) CREATININE 0.80 mg/dL 0.50-1.20 (BEAKER) (test code = 358) GLUCOSE RANDOM 141 mg/dL 70-110 H (BEAKER) (test code = 652) CALCIUM (BEAKER) 9.1 mg/dL 8.5-10.5 (test code = 697) AST (SGOT) 52 U/L 5-40 H (BEAKER) (test code = 353) ALT (SGPT) 48 U/L 5-50 (BEAKER) (test code = 347) EGFR (BEAKER) 115 Interpretatio n of eGFR (test code = 1092) mL/min/1.[address] age Description sq m Result G1 Jenniffer l or high >=90 G2 Mildly decreased 60-89 G3a Mildl y to moderately 45-5 9 G3b Moderately to s everely 30-44 G4 Severl y decreased 15-29 G5 Kidney failure <15Reported eGF R is based on the CKD-EPI 202 equation that d oes not use a race coefficientEsti mated GFR is not as accur ate as Creatinine Kacey vo in predicting glom erular filtration rate . Estimated GFR is not appl icable for dialysis patien ts Ecology Teacher ID - LITOOperator ID - LITOOperator ID - LITOOperator ID - LITOOperator ID - LITOOperator ID - LITOOperator ID - LITOOperator ID - LITOOperator ID - LITOOperator ID - LITOOperator ID - LITOOperator ID - LITOOperator ID - LITOOperator ID - LITOOperator ID - LITOOperator ID - [id number] 05:03:39 Test Item Value Reference Range Interpretation Comments MAGNESIUM (BEAKER) (test code = 1.8 mg/dL 1.5-3.0 627) Ecology Teacher ID - LITOOperator ID - LITOOperator ID - LITOOperator ID - BERENICE [id number] 05:00:35 Test Item Value Reference Range Interpretation Comments PHOSPHORUS (BEAKER) (test code = 1.9 mg/dL 2.5-4.5 L 604) Ecology Teacher ID - LITOPOCT-GLUCOSE [id number] 21:46:29 Test Item Value Reference Range Interpretation Comments POC-GLUCOSE METER 97 mg/dL 70-110 : TESTED A T [facility] [address] (BEAKER) (test code = [address], [address]) [facility] [address]: Ecology Teacher/Techni natasha ID = [id number] for Bre Bob POCT-GLUCOSE [id number] 14:32:27 Test Item Value Reference Range Interpretation Comments POC-GLUCOSE METER 136 mg/dL 70-110 H : TESTED A T [facility] [address] (BEAKER) (test code [address], = 1538) [facility] [address]: Ecology Teacher/Techni natasha ID = [id number] for Angela Payton MR, ABDOMEN, [id number] 11:30:00Unlisted Reason for Exam - Click Yes and Enter Reason Below->No [facility] 1980 Sex: MFINAL REPORT MR, ABDOMEN, MRCP HISTORY: Abdominal pain, biliary obstruction suspected (Ped 0-18y) COMPARISON: None. TECHNIQUE: MRI of the abdomen without IV contrast, with exam tailored to evaluate the biliary tree and the pancreas. Multiplanar, multisequence images, including heavily T2-weighted MRCP sequences were obtained. 3-D reconstructions of the biliary tree were provided. FINDINGS: Bile ducts: Normal in caliber with no intraluminal filling defects. No strictures or dilatedintra- or extrahepatic bile ducts.Liver: Enlarged measuring 25 cm in craniocaudal dimension.Gallbladder: Numerous stones in the gallbladder. There is gallbladder wall thickening.Pancreas: Unremarkable Additional Findings:Lung bases: Unremarkable Spleen: UnremarkableAdrenals: UnremarkableKidneys and ureters: UnremarkableBowel: Unremarkable Lymph nodes: UnremarkablePeritoneum: UnremarkableVessels: UnremarkableAbdominal wall: UnremarkableBones: Unremarkable IMPRESSION: ABSENCE OF INTRAVENOUS CONTRAST DE CREASES SENSITIVITY FOR DETECTION OF FOCAL LESIONS AND VASCULAR PATHOLOGY, CANNOT EVALUATE FOR PERFUSION WITHOUT INTRAVENOUS CONTRAST. 1. Cholelithiasis with associated gallbladder wall thickening. Findings may suggest underlying acute cholecystitis in the appropriate clinical setting. 2. Normal MRCP with no evidence of choledocholithiasis or biliary dilation.3. Hepatomegaly. Signed: Sasha Cook Verified Date/Time: 03/20/2022 11:30:38 Reading Location: [facility] Radiology Reading Room POCT-GLUCOSE [id number] 06:22:07 Test Item Value Reference Range Interpretation Comments POC-GLUCOSE METER 141 mg/dL 70-110 H : TESTED A T [facility] [address] (BEAKER) ([address] [facility] [address] [facility] [address] = [address]) [facility] [address]: Ecology Teacher/Techni natasha ID = [id number] for curtis Adames HEMOGLOBIN [id number] 05:32:23 Test Item Value Reference Range Interpretation Comments HEMOGLOBIN A1C (BEAKER) (test code = 5.7 % 4.3-6.1 368) Ecology Teacher ID - [id number] METABOLIC [id number] 05:28:27 Test Item Value Reference Range Interpretation Comments TOTAL PROTEIN 7.1 gm/dL 6.0-8.5 (BEAKER) (test code = 770) ALBUMIN (BEAKER) 4.0 g/dL 3.5-5.0 (test code = 1145) ALKALINE 97 U/L 30-115 PHOSPHATASE (BEAKER) (test code = 346) BILIRUBIN TOTAL 2.5 mg/dL 0.1-1.2 H (BEAKER) (test code = 377) SODIUM (BEAKER) 133 meq/L 135-148 L (test code = 381) POTASSIUM (BEAKER) 4.0 meq/L 3.6-5.5 (test code = 379) CHLORIDE (BEAKER) 101 meq/L 98-106 (test code = 382) CO2 (BEAKER) (test 21 meq/L 20-29 code = 355) BLOOD UREA 7 mg/dL 10-26 L NITROGEN (BEAKER) (test code = 354) CREATININE 0.75 mg/dL 0.50-1.20 (BEAKER) (test code = 358) GLUCOSE RANDOM 137 mg/dL 70-110 H (BEAKER) (test code = 652) CALCIUM (BEAKER) 9.4 mg/dL 8.5-10.5 (test code = 697) AST (SGOT) 20 U/L 5-40 (BEAKER) (test code = 353) ALT (SGPT) 28 U/L 5-50 (BEAKER) (test code = 347) EGFR (BEAKER) 116 Interpretatio n of eGFR (test code = 1092) mL/min/1.[address] age Description sq m Result G1 Jenniffer l or high >=90 G2 Mildly decreased 60-89 G3a Mildl y to moderately 45-5 9 G3b Moderately to s everely 30-44 G4 Severl y decreased 15-29 G5 Kidney failure <15Reported eGF R is based on the CKD-EPI 2021 equation that d oes not use a race coefficientEsti mated GFR is not as accur ate as Creatinine Kacey gilda in predicting glom erular filtration rate . Estimated GFR is not appl icable for dialysis patien ts Ecology Teacher ID - [id number] ID - [id number] ID - XCOCLXPQV975Fzjyjlkn ID - IYPXHDXBW286Gxsbyfdf ID - JKRDKOIAX429Gyytbacr ID - OTOEDRSBJ838Muronnbe ID - OZXTHDXDJ609Ntapktvk ID - LXBGAZYED847Ltvifegz ID - AJFEKZTPE332Quelnpcu ID - HHPSRCNWF471Ncthetjk ID - UXRDPZYSJ367Rjvjaubc ID - SRZTPIZTU021Vpmicxei ID - WOPBQESXQ648Hdiozlyl ID - TGHGALYSU711Ovhnqqwq ID - XXQSBVJJJ032Zizlnelg ID -QYVLLWUBW440Lwakkjtw slightly ictericPROTHROMBIN TIME/[id number] 05:28:10 Test Item Value Reference Range Interpretation Comments PROTIME (BEAKER) 11.5 seconds 9.3-12.0 Final Infor mation (test code = 759) (Auto Outp ut) INR (BEAKER) (test 1.05 <=5.90 Final Inf ormation code = 370) (Auto Output) RECOMMENDED COUMADIN/WARFARIN INR THERAPY RANGESSTANDARD DOSE: 2.0 - 3.0 Includes: PROPHYLAXIS for venous thrombosis, systemic embolization; TREATMENT for venous thrombosis and/or pulmonary embolus.HIGH RISK: Target INR is 2.5-3.5 for patients with mechanical heart valves.[id number] 05:25:02 Test Item Value Reference Range Interpretation Comments LIPASE (BEAKER) (test code = 749) 6 U/L 6-51 Ecology Teacher ID - [id number] ID - [id number] ID - [id number] ID - [id number] slightly ictericMAGNESIUM 2022-03-20 05:23:59 Test Item Value Reference Range Interpretation Comments MAGNESIUM (BEAKER) (test code = 1.7 mg/dL 1.5-3.0 627) Ecology Teacher ID - [id number] 05:20:38 Test Item Value Reference Range Interpretation Comments PHOSPHORUS (BEAKER) (test code = 2.3 mg/dL 2.5-4.5 L 604) Ecology Teacher ID - [id number] W/PLT COUNT & AUTO [id number] 05:20:25 Test Item Value Reference Range Interpretation Comments WHITE BLOOD CELL COUNT (BEAKER) 17.6 K/ L 4.0-10.0 H (test code = 775) RED BLOOD CELL COUNT (BEAKER) 4.80 M/ L 4.20-5.80 (test code = 761) HEMOGLOBIN (BEAKER) (test code = 13.9 GM/DL 13.0-16.8 410) HEMATOCRIT (BEAKER) (test code = 42.3 % 36.0-50.0 411) MEAN CORPUSCULAR VOLUME (BEAKER) 88 fL 82-99 (test code = 753) MEAN CORPUSCULAR HEMOGLOBIN 29.0 pg 27.0-33.0 (BEAKER) (test code = 751) MEAN CORPUSCULAR HEMOGLOBIN CONC 32.9 GM/DL 32.0-36.0 (BEAKER) (test code = 752) RED CELL DISTRIBUTION WIDTH 14.0 % 12.0-15.0 (BEAKER) (test code = 412) PLATELET COUNT (BEAKER) (test 220 K/CU MM 150-430 code = 756) MEAN PLATELET VOLUME (BEAKER) 10.6 fL 6.0-11.5 (test code = 754) NUCLEATED RED BLOOD CELLS 0 /100 WBC 0-0 (BEAKER) (test code = 413) NEUTROPHILS RELATIVE PERCENT 83 % (BEAKER) (test code = 429) LYMPHOCYTES RELATIVE PERCENT 4 % (BEAKER) (test code = 430) MONOCYTES RELATIVE PERCENT 12 % (BEAKER) (test code = 431) EOSINOPHILS RELATIVE PERCENT 0 % (BEAKER) (test code = 432) BASOPHILS RELATIVE PERCENT 0 % (BEAKER) (test code = 437) NEUTROPHILS ABSOLUTE COUNT 14.55 K/ L 1.80-8.00 H (BEAKER) (test code = 670) LYMPHOCYTES ABSOLUTE COUNT 0.74 K/ L 1.48-4.50 L (BEAKER) (test code = 414) MONOCYTES ABSOLUTE COUNT (BEAKER) 2.13 K/ L 0.00-1.30 H (test code = 415) EOSINOPHILS ABSOLUTE COUNT 0.01 K/ L 0.00-0.50 (BEAKER) (test code = 416) BASOPHILS ABSOLUTE COUNT (BEAKER) 0.05 K/ L 0.00-0.20 (test code = 417) IMMATURE GRANULOCYTES-RELATIVE 0.70 % 0.00-0.00 H PERCENT (BEAKER) (test code = 2801) POCT-GLUCOSE [id number] 23:05:52 Test Item Value Reference Range Interpretation Comments POC-GLUCOSE METER 125 mg/dL 70-110 H : Notified RN/MD: TESTED (BEAKER) (test code AT [facility] [address] = [address]38) [facility] [id number]: Ecology Teacher/Techni natasha ID = [id number] for Spencersathya curtis walker Notes Date/Time Note Provider Source 2022-04-06 05:13:41-00:00 IBAN LIN OPERATIVE/PROCEDURE REPORT MOSES PAULINO FACILITY: [facility] Billing #: [id number] Room: 72 [address] [place] [address] MR #: [id number] : 1980 DATE OF PROCEDURE: 03/20/2022 SURGEON: Iban Lin MD PREOPERATIVE DIAGNOSIS: Acute cholecystitis. POSTOPERATIVE DIAGNOSIS: Acute cholecystitis. PROCEDURE PERFORMED: Laparoscopic cholecystectom y. OIL WELL DIRECTIONAL SURVEYOR: Dr. Patel. COMPLICATIONS: None. ANESTHESIA: General endotracheal anesthesia. ESTIMATED BLOOD LOSS: Less than 20 mL. INDICATION FOR PROCEDURE: The patient is a 41-ye ar-old, who has symptomatic cholelithiasis. The patient unde rstood the risks, benefits, and complications of the proced ure and wanted to proceed. DESCRIPTION OF PROCEDURE: The patient was erica t to the operating suite, placed on operating table. Afte r adequate general anesthesia obtained, the patient was pre pped and draped in the usual sterile fashion. An incision was ma de in the patient's umbilicus. Through this, trocar was pl aced in the right upper quadrant. The patient's gallbladder was identified and grasped. The cystic duct and artery were dis sected out, doubly clamped on proximal side, singly clamped on the distal side, and then transected. The gallbladder was r emoved from the liver bed under direct visualization, remove d from the abdomen. Copious amount of irrigation was used t o irrigate the abdomen. The fascia was then closed using 0 Vicr yl and 4-0 Monocryl for the skin. Needle and sponge count r eported by the operative nurse was correct. RAHEEL/COLLEEN /[id number] Electronically signed by: IBAN LIN at 2 04:06:24.000
[2022-08-10 10:18] LABS: Absolute Lymphocytes (CBC) 1.3 K/uL (0.7-4.9); Hematocrit 43.9 % (39.6-49.0); Lymphocytes % 21.9 % (15.3-44.8); MCV 85.9 fL (80-100); MPV 8.5 fL (7.6-11.3); RBC Red Blood Cell Count 5.11 M/uL (4.33-5.43)
[2022-08-10 10:37] LABS: Albumin 3.9 g/dL (3.4-5.0); Bilirubin Total 0.7 mg/dL (0.2-1.0); Potassium 4.3 mEq/L (3.5-5.1); Protein, Total 7.5 g/dL (6.4-8.2)
--- NOTE | 2022-08-10 11:23 | RAD REPORT ---
EXAM DESCRIPTION: CT - Abdomen Pelvis W Contrast - 08/10/2022 11:06 am CLINICAL HISTORY: right lower abdominal pain COMPARISON: Abdomen Pelvis W Contrast dated 03/19/2022 TECHNIQUE: Thin cut axial CT imaging of the abdomen and pelvis was performed following intravenous a dministration of 100 mL Isovue 300. Multiplanar reformats were generated and reviewed. All CT scans are performed using dose optimization technique as appropriate and may include automated exposure control or mA/KV adjustment according to patient size. FINDINGS: No suspicious findings in the lung bases. The liver, spleen, adrenal glands, and pancreas show no suspicious findings. Status post cholecystect patricia. Symmetric renal function is seen with no hydronephrosis or suspicious renal mass. No dilated bowel loops or bowel wall thickening. Appendix is unremarkable. No free air, free fluid or inflammatory stranding. No hernia, mass or bulky lymphadenopathy. The urinary bladder is without sig nificant finding. No suspicious bony findings. IMPRESSION: No acute intra-abdominal process.
[2022-08-10] MEDS ORDERED: ONDANSETRON 4 MG/2 ML VIAL ONE (12:52)
[2022-08-10] MEDS ORDERED: MORPHINE 4 MG/ML SYR ONE (12:52)
--- NOTE | 2022-08-10 14:06 | ER ---
Nurse's Notes [facility] Name: Orlando Peralta Age: 42 yrs Sex: Male : 1980 Arrival Date: 08/10/2022 Time: 09:55 Bed 13 Private MD: Diagnosis: Abdominal pain, unspecified Presentation: 08/10 10:06 Chief complaint: Patient states: RLQ pain that began 2 days ago. Is worse today. Denies ss fever. Coronavirus screen: Client denies travel out of the [place] in the last 14 days. Ebola Screen: Patient denies exposure to infectious person. Patient denies travel to an Ebola-affected area in the 21 days before illness onset. Initial Sepsis Screen: Does the patient meet any 2 criteria? No. Patient's initial sepsis screen is negative. Does the patient have a suspected source of infection? No. Patient's initial sepsis screen is negative. Risk Assessment: Do you want to hurt yourself or someone else? Patient reports no desire to harm self or others. Onset of symptoms was August 08, 2022. 10:06 Method Of Arrival: Ambulatory ss 10:06 Acuity: JANUSZ 3 ss Triage Assessment: 14:33 General: Appears in no apparent distress. Behavior is calm, cooperative, appropriate os for age. Historical: - Allergies: 10:08 No Known Allergies; ss - PMHx: 10:08 acid reflux; diabetes mellitus; Hypertensive disorder; Pneumonia; Pulmonary Embolism; ss - PSHx: 10:08 Cholecystectomy; ss - Immunization history:: Client reports receiving the 2nd dose of the Covid vaccine. - Social history:: Smoking status: Patient/guardian denies using tobacco, the patient reports quitting approximately 1 years ago. Screenin:30 [facility] ED Fall Risk Assessment (Adult) History of falling in the last 3 months, os including since admission No falls in past 3 months (0 pts) Confusion or Disorientation No (0 pts) Intoxicated or Sedated No (0 pts) Impaired Gait No (0 pts) Mobility Assist Device Used No (0 pt) Altered Elimination No (0 pt) Score/Fall Risk Level 0 - 2 = Low Risk. Abuse screen: Denies threats or abuse. Nutritional screening: No deficits noted. Tuberculosis screening: No symptoms or risk factors identified. Assessment: 10:12 Pain: Complains of pain in left lower quadrant. os 10:13 Pain: Pain does not radiate. Pain level that patient reports is acceptable is 4 out of os 10 on a pain scale. Quality of pain is described as aching. GI: Bowel sounds present X 4 quads. Abd is soft Abdomen is tender to palpation in left lower quadrant. Vital Signs: 10:06 BP 137 / 71; Pulse 77; Resp 16; Temp 98.6(TE); Pulse Ox 98% on R/A; Weight 127.46 kg; ss Height 5 ft. 10 in. ; Pain 6/10; 12:42 BP 108 / 56; Pulse 74; Resp 18; Pulse Ox 98% on R/A; mb9 12:50 BP 110 / 50; Pulse 84; Resp 18; Pulse Ox 97% on R/A; mb9 10:06 Body Mass Index 40.32 (127.46 kg, 177.8 cm) ss 10:06 Pain Scale: Adult ss ED Course: 09:57 Patient arrived in ED. [facility] 10:00 Yannick Son PA is PHCP. [facility] 10:00 Maninder Lockett DO is Attending Physician. [facility] 10:07 Triage completed. ss 10:08 Arm band placed on right wrist. ss 10:12 Alexandra Harmon, RN is Primary Nurse. os 10:12 CBC with Diff Sent. os 10:12 CMP Sent. os 10:12 Lipase Sent. os 11:00 CT Abd/Pelvis - IV Contrast Only Sent. os 11:08 CT Abd/Pelvis - IV Contrast Only In Process Unspecified. EDPR 14:05 Adalberto Perry MD is Referral Physician. jm 14:05 Nixon Taylor MD is Referral Physician. [facility] 14:36 No provider procedures requiring assistance completed. Patient did not have IV access os during this emergency room visit. 14:37 Patient has correct armband on for positive identification. os Administered Medications: 12:42 Drug: Ondansetron IVP 4 mg Route: IVP; Site: left antecubital; mb9 13:31 Follow up: Response: No adverse reaction; Pain is decreased mb9 12:47 Drug: morphine IVP or IV 4 mg Route: IVP; Infused Over: 4 mins; Site: left antecubital; mb9 13:31 Follow up: Response: No adverse reaction; Pain is decreased mb9 Outcome: 14:06 Discharge ordered by MD. shaw 14:36 Discharged to home ambulatory. os 14:36 Condition: stable 14:36 Discharge instructions given to patient, Instructed on discharge instructions, follow up and referral plans. medication usage, Demonstrated understanding of instructions, follow-up care, medications. 14:55 Patient left the ED. os Signatures: Dispatcher [employer] EDMS Yannick Son PA PA jmm Blanchard, Shelby, RN RN May Mendoza 4 Cielo Delgadillo RN RN mb9 Alexandra Harmon, RN RN os
--- NOTE | 2022-08-10 14:06 | EDPHYS ---
Physician Documentation [facility] Name: Orlando Peralta Age: 42 yrs Sex: Male : 1980 Arrival Date: 08/10/2022 Time: 09:55 Bed 13 Private MD: ED Physician Maninder Lockett HPI: 08/10 10:01 This 42 yrs old Male presents to ER via Ambulatory with complaints of jmm Abdominal Pain. 10:01 The patient presents with abdominal pain. Onset: The symptoms/episode began/occurred jmm gradually, 2 day(s) ago. The symptoms do not radiate. Associated signs and symptoms: Pertinent negatives: fever, vomiting. The symptoms are described as achy. Modifying factors: The symptoms are alleviated by nothing, the symptoms are aggravated by nothing. Historical: - Allergies: 10:08 No Known Allergies; ss - PMHx: 10:08 acid reflux; diabetes mellitus; Hypertensive disorder; Pneumonia; Pulmonary Embolism; ss - PSHx: 10:08 Cholecystectomy; ss - Immunization history:: Client reports receiving the 2nd dose of the Covid vaccine. - Social history:: Smoking status: Patient/guardian denies using tobacco, the patient reports quitting approximately 1 years ago. ROS: 10:01 Constitutional: Negative for fever, chills, and weight loss, Cardiovascular: Negative jmm for chest pain, palpitations, and edema, Respiratory: Negative for shortness of breath, cough, wheezing, and pleuritic chest pain. 10:01 Abdomen/GI: Positive for abdominal pain, Negative for nausea and vomiting, diarrhea. 10:01 All other systems are negative. Exam: 10:01 Constitutional: This is a well developed, well nourished patient who is awake, alert, jmm and in no acute distress. Head/Face: atraumatic. Eyes: EOMI, no conjunctival erythema appreciated ENT: Moist Mucus Membranes Neck: Trachea midline, Supple Chest/axilla: Normal chest wall appearance and motion. Cardiovascular: Regular rate and rhythm. No edema appreciated Respiratory: Normal respirations, no respiratory distress appreciated 10:01 Back: Normal ROM Skin: General appearance color normal MS/ Extremity: Moves all extremities, no obvious deformities appreciated, no edema noted to the lower extremities Neuro: Awake and alert Psych: Behavior is normal, Mood is normal, Patient is cooperative and pleasant 10:01 Abdomen/GI: Inspection: abdomen appears normal, Bowel sounds: normal, Palpation: soft, mild abdominal tenderness, in the right lower quadrant. Vital Signs: 10:06 BP 137 / 71; Pulse 77; Resp 16; Temp 98.6(TE); Pulse Ox 98% on R/A; Weight 127.46 kg; ss Height 5 ft. 10 in. ; Pain 6/10; 12:42 BP 108 / 56; Pulse 74; Resp 18; Pulse Ox 98% on R/A; mb9 12:50 BP 110 / 50; Pulse 84; Resp 18; Pulse Ox 97% on R/A; mb9 10:06 Body Mass Index 40.32 (127.46 kg, 177.8 cm) ss 10:06 Pain Scale: Adult ss MDM: 10:01 Patient medically screened. [facility] 10:01 Differential diagnosis: diverticulitis, Hepatitis, sympomatic leaking abdominal aortic jmm aneurysm, Mesenteric ischemia or infarction, non-specific abd pain, pancreatitis, Pyelonephritis, Ureterolithiasis. 12:50 Counseling: I had a detailed discussion with the patient and/or guardian regarding: the [facility] historical points, exam findings, and any diagnostic results supporting the discharge/admit diagnosis, lab results, radiology results, the need for outpatient follow up, to return to the emergency department if symptoms worsen or persist or if there are any questions or concerns that arise at home. ED course: Pain alleviated in the ED. Patient advised to follow-up with GI for further evaluation. Patient understood agrees plan of care. Patient was otherwise given strict return precautions. 08/10 10:05 Order name: CBC with Diff; Complete Time: 10: [facility] 08/10 10:05 Order name: CMP; Complete Time: 10:38 [facility] 08/10 10:05 Order name: Lipase; Complete Time: 10:38 [facility] 08/10 10:05 Order name: CT Abd/Pelvis - IV Contrast Only; Complete Time: 11:24 [facility] 08/10 10:05 Order name: IV Saline Lock; Complete Time: 11:00 [facility] 08/10 10:05 Order name: Labs collected and sent; Complete Time: 11:00 [facility] Administered Medications: 12:42 Drug: Ondansetron IVP 4 mg Route: IVP; Site: left antecubital; mb9 13:31 Follow up: Response: No adverse reaction; Pain is decreased mb9 12:47 Drug: morphine IVP or IV 4 mg Route: IVP; Infused Over: 4 mins; Site: left antecubital; mb9 13:31 Follow up: Response: No adverse reaction; Pain is decreased mb9 Disposition: 18:05 Co-signature as Attending Physician, Maninder Lockett DO I was immediately available on-site ms3 in the Emergency Department for consultation in the care of the patient. Disposition Summary: 08/10/22 14:06 Discharge Ordered Location: Home [facility] Condition: Stable [facility] Diagnosis - Abdominal pain, unspecified jm Followup: [facility] - With: Adalberto Perry MD - When: 2 - 3 days - Reason: Recheck today's complaints, Continuance of care, Re-evaluation by your physician Followup: [facility] - With: Nixon Taylor MD - When: 2 - 3 days - Reason: Recheck today's complaints, Continuance of care, Re-evaluation by your physician Discharge Instructions: - Discharge Summary Sheet [facility] - Abdominal Pain, Adult jm - Clear Liquid Diet, Adult [facility] Forms: - Medication Reconciliation Form [facility] - Thank You Letter [facility] - Antibiotic Education [facility] - Prescription Opioid Use [facility] - [email or web address] [facility] Prescriptions: - dicyclomine 20 mg Oral Tablet - take 1 tablet by ORAL route 4 times per day As needed; 30 tablet; Refills: 0, [facility] Product Selection Permitted Signatures: Dispatcher [employer] Yannick Hammer PA PA jmm Blanchard, Shelby, RN RN ss Sims, Marcus, DO DO ms3 Cielo Delgadillo RN RN mb9
[2022-08-10 15:00] VITALS: TEMP 98.6
[2022-08-10 15:03] VITALS: BP 110/50; O2SAT 97
--- NOTE | 2022-08-13 19:35 | EKG ---
Test Date: 2022-08-10 Test Time: 10:24:29 Phytopathologist: MICHAEL MEASUREMENT RESULTS: Intervals: Rate: 76 OR: 158 QRSD: 92 QT: 382 QTc: 429 [place]: P: 74 OR: 158 QRS: 44 T: 57 INTERPRETIVE STATEMENTS: Normal sinus rhythm Normal ECG Compared to ECG 03/19/2022 11:38:16 Sinus tachycardia no longer present Electronically Signed On 08-13-22 19:32:18 CDT by Gerardo Cristina
== END 2022-08-10 14:55 | disposition home or self-care (01) ==
LOC: ER 09:55
DX: R10.31 Right lower quadrant pain (principal); I10 Essential (primary) hypertension; E11.9 Type 2 diabetes mellitus without complications
CPT/HCPCS: 85025; 36415; 83690; 80053; 74177; 96375; 96374; 99284; Q9967; J2405; 93005

== ENCOUNTER 2023-07-08 09:53 | Emergency (ER) | payer OTHER, SELFPAY ==
[2023-07-08] MEDS ORDERED: CYCLOBENZAPRINE 10 MG TAB ONE (10:15)
--- NOTE | 2023-07-08 10:40 | RAD REPORT ---
EXAM DESCRIPTION: CT - Spine Lumbar Wo Con - 07/08/2023 10:29 am CLINICAL HISTORY: PAIN COMPARISON: No comparisons TECHNIQUE: Axial noncontrast CT imaging of the lumbar spine was performed with coronal and sagittal re-formatted images. All CT scans are performed using dose optimization technique as appropriate and may include automated exposure control or mA/KV adjustment according to patient size. FINDINGS: No acute lumbar spine fracture seen. No aggressive marrow pattern or malalignment. Paraspinal tissues are normal in thickness. No paraspinal abscess or hematoma seen. Cholecystectomy. Intervertebral disc disease assessment is inherently limited by CT. Within these limitations, no high -grade canal stenosis suspected. Mild to moderate disc height loss is present L5-S1. Neural foraminal narrowing is present on the left that is moderate and on the right that is mild . IMPRESSION: No acute fracture lumbar spine. Degenerative changes L5-S1 with moderate left-sided neur al foraminal narrowing at L5-S1. No clinically significant central spinal stenosis identified.
--- NOTE | 2023-07-08 10:43 | RAD REPORT ---
EXAM DESCRIPTION: CT - C Spine Wo Con - 07/08/2023 10:29 am CLINICAL HISTORY: PAIN COMPARISON: Spine Lumbar Wo Con dated 07/08/2023 TECHNIQUE: CT Scan was obtained of the cervical spine without contrast. Reformats were provided in t he sagittal and coronal plane. FINDINGS: No acute fracture of the cervical spine. Loss of the normal cervical lordosis likely relat ed to mild degenerative changes. No prevertebral edema. Small posterior disc osteophyte complex uncov ertebral joint hypertrophy present at C5-6 with mild left neural foraminal narrowing but no central s margarita stenosis. No suspicious thyroid nodules or lymphadenopathy. The lung apices are clear. IMPRESSION: No fracture or traumatic malalignment of the cervical spine. Mild cervical spondylosis i ncluding mild left neural foraminal narrowing at C5-6. No clinically significant central spinal steno sis appreciated.
--- NOTE | 2023-07-08 10:58 | EDPHYS ---
Physician Documentation [facility] Name: Orlando Peralta Age: 43 yrs Sex: Male : 1980 Arrival Date: 07/08/2023 Time: 09:53 Bed 8 Private MD: ED Physician Eric Nguyen HPI: 07/07 10:32 This 43 yrs old Male presents to ER via Ambulatory with complaints of Numbness rt - left side with pain. 10:32 Patient presents to the ED with left-sided neck pain that radiates down his arm that rt has been present for about 1 month. Denies any discrete injury. Patient states the past 4 days, has had a lower back pain that radiates down his leg. Reports a numb, tingling sensation. Denies other acute complaints at this time, symptoms are moderate in severity, no other aggravating or alleviating factors.. Historical: - Allergies: 09:58 No Known Allergies; ll1 - PMHx: 09:58 acid reflux; diabetes mellitus; Hypertensive disorder; Pneumonia; Pulmonary Embolism; ll1 - PSHx: 09:58 Cholecystectomy; ll1 - Immunization history:: Adult Immunizations up to date. - Infectious Disease History:: Denies. - Social history:: Smoking status: Patient/guardian denies using tobacco, the patient reports quitting approximately 2 years ago. - Family history:: not pertinent. ROS: 10:32 Constitutional: Negative for fever, chills, and weight loss, Cardiovascular: Negative rt for chest pain, palpitations, and edema, Respiratory: Negative for shortness of breath, cough, wheezing, and pleuritic chest pain, Abdomen/GI: Negative for abdominal pain, nausea, vomiting, diarrhea, and constipation, 10:32 Neck: Positive for pain with movement, Negative for injury or acute deformity, 10:32 Back: Positive for pain with movement, Negative for injury or acute deformity, 10:32 MS/extremity: Positive for pain, Negative for injury or acute deformity, 10:32 Neuro: 10:32 Neuro: Positive for Tingling, negative for weakness, Exam: 10:32 Constitutional: This is a well developed, well nourished patient who is awake, alert, rt and in no acute distress. Head/Face: Normocephalic, atraumatic. Chest/axilla: Normal chest wall appearance and motion. Nontender with no deformity. No lesions are appreciated. Cardiovascular: Regular rate and rhythm with a normal S1 and S2. No gallops, murmurs, or rubs. Normal PMI, no JVD. No pulse deficits. Respiratory: Lungs have equal breath sounds bilaterally, clear to auscultation and percussion. No rales, rhonchi or wheezes noted. No increased work of breathing, no retractions or nasal flaring. Abdomen/GI: Soft, non-tender, with normal bowel sounds. No distension or tympany. No guarding or rebound. No evidence of tenderness throughout. MS/ Extremity: Pulses equal, no cyanosis. Neurovascular intact. Full, normal range of motion. Neuro: Awake and alert, GCS 15, oriented to person, place, time, and situation. Cranial nerves II-XII grossly intact. Motor strength 5/5 in all extremities. Sensory grossly intact. Cerebellar exam normal. Normal gait. 10:32 Neck: Tenderness over left superior trapezius muscle, no midline tenderness, 10:32 Back: Tenderness to the left bilateral paraspinal lumbar regions, no midline tenderness, Vital Signs: 09:59 BP 142 / 82; Pulse 69; Resp 17; Pulse Ox 99% ; Weight 117.03 kg; Height 5 ft. 10 in. ; ll1 Pain 5/10; 11:06 BP 104 / 62; Pulse 77; Resp 18; Pulse Ox 100% on R/A; mb9 09:59 Body Mass Index 37.02 (117.03 kg, 177.8 cm) ll1 09:59 Pain Scale: Adult ll1 MDM: 10:09 Patient medically screened. rt 11:14 Differential diagnosis: Disc disease, muscle spasm, mechanical pain, radiculopathy. rt Data reviewed: vital signs, nurses notes, radiologic studies. I considered the following discharge prescriptions or medication management in the emergency department Medications were administered in the Emergency Department. See MAR. Independent interpretation of the following test(s) in the Emergency Department CT Scan: My interpretation is No fracture seen on interpretation of CT scan images. Test considered but Not performed: Other Details Stable vital signs, no red flag symptoms. Labs, MRI not indicated.. Care significantly affected by the following chronic conditions: Diabetes. Counseling: I had a detailed discussion with the patient and/or guardian regarding the historical points, exam findings, and any diagnostic results supporting the discharge/admit diagnosis, radiology results, the need for outpatient follow up, to return to the emergency department if symptoms worsen or persist or if there are any questions or concerns that arise at home. 07/07 10:17 Order name: CT Lumbar Spine Wo Con; Complete Time: 10:49 rt 07/07 10:17 Order name: CT C Spine; Complete Time: 10:49 rt Administered Medications: 10:18 Drug: Cyclobenzaprine PO 10 mg PO once Route: PO; mb9 11:05 Follow up: Response: No adverse reaction mb9 Disposition Summary: 07/08/23 10:58 Discharge Ordered Notes: Location: Home rt Problem: new rt Symptoms: have improved rt Condition: Stable rt Diagnosis - Low back pain rt - Neck pain rt Followup: rt - With: Private Physician - When: 2 - 3 days - Reason: Discharge Instructions: - Discharge Summary Sheet rt - Acute Back Pain, Adult rt - Musculoskeletal Pain rt Forms: - Work release form mb9 - Medication Reconciliation Form rt - Antibiotic Education rt - Prescription Opioid Use rt - Patient Portal Instructions rt - Leadership Thank You Letter rt Prescriptions: - gabapentin 100 mg Oral capsule - take 1 capsule ORAL route every 8 hours; 30 capsule; Refills: 0, Product rt Selection Permitted - Cyclobenzaprine 5 mg Oral Tablet - take 1 tablet ORAL route 3 times per day As needed; 15 tablet; Refills: 0, rt Product Selection Permitted Signatures: Dispatcher [employer] Trevor Lozano RN RN ll1 Cielo Delgadillo RN RN mb9 Eric Nguyen MD MD rt
--- NOTE | 2023-07-08 10:58 | ER ---
Nurse's Notes [facility] Name: Orlando Peralta Age: 43 yrs Sex: Male : 1980 Arrival Date: 07/08/2023 Time: 09:53 Bed 8 Private MD: Diagnosis: Low back pain;Neck pain Presentation: 07/07 09:59 Chief complaint: Patient states: L shoulder pain radiates into L arm for over 1 month. ll1 L leg feels numb for 1 few days. Coronavirus screen: Client denies travel out of the [place] in the last 14 days. At this time, the client does not indicate any symptoms associated with coronavirus-19. Ebola Screen: Patient denies travel to an Ebola-affected area in the 21 days before illness onset. Initial Sepsis Screen: Does the patient meet any 2 criteria? No. Patient's initial sepsis screen is negative. Does the patient have a suspected source of infection? No. Patient's initial sepsis screen is negative. Risk Assessment: Do you want to hurt yourself or someone else? Patient reports no desire to harm self or others. Onset of symptoms was June 06, 2023. 09:59 Method Of Arrival: Ambulatory ll1 09:59 Acuity: JANUSZ 3 ll1 Historical: - Allergies: 09:58 No Known Allergies; ll1 - PMHx: 09:58 acid reflux; diabetes mellitus; Hypertensive disorder; Pneumonia; Pulmonary Embolism; ll1 - PSHx: 09:58 Cholecystectomy; ll1 - Immunization history:: Adult Immunizations up to date. - Infectious Disease History:: Denies. - Social history:: Smoking status: Patient/guardian denies using tobacco, the patient reports quitting approximately 2 years ago. - Family history:: not pertinent. Screenin:13 [facility] ED Fall Risk Assessment (Adult) History of falling in the last 3 months, mb9 including since admission No falls in past 3 months (0 pts) Confusion or Disorientation No (0 pts) Intoxicated or Sedated No (0 pts) Impaired Gait No (0 pts) Mobility Assist Device Used No (0 pt) Altered Elimination No (0 pt) Score/Fall Risk Level 0 - 2 = Low Risk Oriented to surroundings, Maintained a safe environment, Educated pt \T\ family on fall prevention, incl call for assistance when getting out of bed. Abuse screen: Denies threats or abuse. Nutritional screening: No deficits noted. Tuberculosis screening: No symptoms or risk factors identified. Assessment: 10:12 General: Appears in no apparent distress. Behavior is calm, cooperative. Pain: mb9 Complains of pain in left arm, right leg and left leg Pain radiates to neck Pain currently is 8 out of 10 on a pain scale. Quality of pain is described as shooting, tingling, throbbing. Neuro: Jones Agitation-Sedation Scale (RASS): 0 - Alert and Calm Level of Consciousness is awake, alert, obeys commands, Oriented to person, place, time, situation, Appropriate for age Reports numbness in left arm, right leg and neck. Cardiovascular: Heart tones S1 S2 present Patient's skin is warm and dry. Respiratory: Airway is patent Respiratory effort is even, unlabored, Respiratory pattern is regular, symmetrical, Breath sounds are clear bilaterally. GI: Abdomen is round non-distended, Bowel sounds present X 4 quads. Abd is soft and non tender X 4 quads. : No signs and/or symptoms were reported regarding the genitourinary system. EENT: No signs and/or symptoms were reported regarding the EENT system. Derm: Skin is pink, warm \T\ dry. Musculoskeletal: Range of motion: intact in all extremities. 11:05 Reassessment: No changes from previously documented assessment. Patient and/or family mb9 updated on plan of care and expected duration. Pain level reassessed. Patient is alert, oriented x 3, equal unlabored respirations, skin warm/dry/pink. Vital Signs: 09:59 BP 142 / 82; Pulse 69; Resp 17; Pulse Ox 99% ; Weight 117.03 kg; Height 5 ft. 10 in. ; ll1 Pain 5/10; 11:06 BP 104 / 62; Pulse 77; Resp 18; Pulse Ox 100% on R/A; mb9 09:59 Body Mass Index 37.02 (117.03 kg, 177.8 cm) ll1 09:59 Pain Scale: Adult ll1 ED Course: 09:55 Patient arrived in ED. ra3 09:56 Eric Nguyen MD is Attending Physician. rt 10:00 Triage completed. ll1 10:01 Arm band placed on Patient placed in an exam room, on a stretcher. ll1 10:09 Breneman, Daina, RN is Primary Nurse. mb9 10:13 Placed in gown. Bed in low position. Call light in reach. Side rails up X 1. Provided mb9 Education on: press call light if needing anything. Client placed on continuous cardiac and pulse oximetry monitoring. NIBP monitoring applied. 10:14 No provider procedures requiring assistance completed. mb9 10:31 CT Lumbar Spine Wo Con In Process Unspecified. EDMS 10:31 CT C Spine In Process Unspecified. EDMS 11:06 Patient did not have IV access during this emergency room visit. mb9 Administered Medications: 10:18 Drug: Cyclobenzaprine PO 10 mg PO once Route: PO; mb9 11:05 Follow up: Response: No adverse reaction mb9 Medication: 10:14 VIS not applicable for this client. mb9 Outcome: 10:58 Discharge ordered by . rt 11:10 Discharged to home ambulatory, mb9 11:10 Condition: stable 11:10 Discharge instructions given to patient, Instructed on discharge instructions, follow up and referral plans. Demonstrated understanding of instructions, follow-up care, medications, Prescriptions given X 2, 11:10 Patient left the ED. mb9 Signatures: Dispatcher [employer] EDTrevor Watson RN RN ll1 Cielo Delgadillo, RN RN mb9 Eric Nguyen MD MD rt Cherry Castro ra3
[2023-07-08 11:53] VITALS: BP 104/62; O2SAT 100
== END 2023-07-08 11:10 | disposition home or self-care (01) ==
LOC: ER 09:53
DX: M54.50 Low back pain, unspecified (principal); M54.2 Cervicalgia
CPT/HCPCS: 72125; 72131; 99283

== ENCOUNTER 2023-10-03 16:25 | Emergency (ER) | payer OTHER ==
[2023-10-03] MEDS ORDERED: SMZ./TMP. 800/160 MG TABLET ONE (17:40)
--- NOTE | 2023-10-03 19:07 | EDPHYS ---
Physician Documentation [facility] Name: Orlando Peralta Age: 43 yrs Sex: Male : 1980 Arrival Date: 10/03/2023 Time: 16:25 Bed 8 Private MD: ED Physician Kiran Dwyer HPI: 10/02 17:24 This 43 yrs old Male presents to ER via Ambulatory with complaints of Leg Pain.ec2 17:24 Patient arrives today for evaluation of left foot pain. He had stepped on a nail 4 days ec2 ago. He is having some swelling, no fevers or chills, no nausea or vomiting, no medications that he takes daily, no chronic medical problems, no antibiotic allergies.. Historical: - Allergies: 16:58 No Known Allergies; dd2 - PMHx: 16:58 acid reflux; diabetes mellitus; Hypertensive disorder; Pneumonia; Pulmonary Embolism; dd2 - PSHx: 16:58 Cholecystectomy; dd2 - Immunization history:: Adult Immunizations up to date. - Infectious Disease History:: Denies. - Social history:: Smoking status: Patient/guardian denies using tobacco, the patient reports quitting approximately 2 years ago. ROS: 17:24 Constitutional: as per hpi ec2 Exam: 17:24 Constitutional: GEN: NAD Head: atraumatic Eyes: EOMI Ears: External ears are ec2 normal. CV: regular rate LUNGS: no respiratory distress ABD: non-distended SKIN: Plantar aspect of the foot with a puncture wound between the second and third metatarsal. Scant erythema, no lymphadenopathy noted. MSK: no evidence of trauma Vital Signs: 16:54 BP 108 / 74; Pulse 83; Resp 17; Temp 98.2; Pulse Ox 100% ; dd2 18:28 BP 116 / 69; Pulse 84; Resp 18; Pulse Ox 100% on R/A; ld1 19:28 BP 121 / 70; Pulse 80; Resp 18; Temp 98.2; Pulse Ox 100% ; Pain 4/10; bm8 19:28 Pain Scale: Adult bm8 [place] Coma Score: 19:28 Eye Response: spontaneous(4). Motor Response: obeys commands(6). Verbal Response: bm8 oriented(5). Total: 15. MDM: 17:13 Patient medically screened. ec2 17:24 Data reviewed: vital signs. ED course: Patient arrives today for evaluation of left ec2 foot pain after stepping on a nail several days ago. Examination remarkable for skin findings as above. Will obtain radiograph. Offered tetanus update however reports last tetanus shot was 1 year ago.. 19:06 ED course: Radiographs independently reviewed and interpreted by me, shows no bony ec2 fracture. Will discharge home, starting antibiotics. Return precautions given.. 10/02 17:15 Order name: Foot Left 3 View XRAY; Complete Time: 19:12 ec2 Administered Medications: 17:23 Not Given (tetanus UTD): boostrix tdap0.5 ml IM once; as a single dose ph 17:46 Drug: Trimethoprim-Sulfamethoxazole PO (160 mg-800 mg (DS) 1 tablet PO once Route: PO; ph 19:03 Follow up: Response: No adverse reaction bm8 Disposition Summary: 10/03/23 19:06 Discharge Ordered Notes: Location: Home ec2 Condition: Stable ec2 Diagnosis - Puncture wound without foreign body, left foot ec2 Followup: ec2 - With: Private Physician - When: - Reason: Re-evaluation by your physician Discharge Instructions: - Discharge Summary Sheet ec2 - Puncture Wound, [id number] ec2 Forms: - Medication Reconciliation Form ec2 - Antibiotic Education ec2 - Prescription Opioid Use ec2 - Patient Portal Instructions ec2 - Leadership Thank You Letter ec2 Prescriptions: - Bactrim DS 800-160 mg Oral Tablet - take 1 tablet ORAL route every 12 hours for 7 days; 14 tablet; Refills: 0, ec2 Product Selection Permitted Signatures: Dispatcher [employer] Chyna Jackman RN RN Kiran Dwyer MD MD ec2 PHILLIP BENITO RN RN dd2 Alvarado Andres RN bm8 Corrections: (The following items were deleted from the chart) 17:15 17:15 Foot Left 3 View+RAD.RAD.BRZ ordered. LEATHA ZHANG
--- NOTE | 2023-10-03 19:07 | ER ---
Nurse's Notes [facility] Name: Orlando Peralta Age: 43 yrs Sex: Male : 1980 Arrival Date: 10/03/2023 Time: 16:25 Bed 8 Private MD: Diagnosis: Puncture wound without foreign body, left foot Presentation: 10/02 16:54 Chief complaint: Patient states: Pt states stepped on nail with Lt foot on Saturday and dd2 began having pain today. Pt states fingers are now locking up. Coronavirus screen: At this time, the client does not indicate any symptoms associated with coronavirus-19. Ebola Screen: No symptoms or risks identified at this time. Initial Sepsis Screen: Does the patient meet any 2 criteria? No. Patient's initial sepsis screen is negative. Does the patient have a suspected source of infection? No. Patient's initial sepsis screen is negative. Risk Assessment: Do you want to hurt yourself or someone else? Patient reports no desire to harm self or others. Onset of symptoms is unknown. 16:54 Method Of Arrival: Ambulatory dd2 16:54 Acuity: JANUSZ 4 dd2 Triage Assessment: 16:58 General: Appears in no apparent distress. Behavior is calm, cooperative. Pain: dd2 Complains of pain in left foot. Historical: - Allergies: 16:58 No Known Allergies; dd2 - PMHx: 16:58 acid reflux; diabetes mellitus; Hypertensive disorder; Pneumonia; Pulmonary Embolism; dd2 - PSHx: 16:58 Cholecystectomy; dd2 - Immunization history:: Adult Immunizations up to date. - Infectious Disease History:: Denies. - Social history:: Smoking status: Patient/guardian denies using tobacco, the patient reports quitting approximately 2 years ago. Screenin:28 [facility] ED Fall Risk Assessment (Adult) History of falling in the last 3 months, ld1 including since admission No falls in past 3 months (0 pts) Confusion or Disorientation No (0 pts) Intoxicated or Sedated No (0 pts) Impaired Gait No (0 pts) Mobility Assist Device Used No (0 pt) Altered Elimination No (0 pt) Score/Fall Risk Level 0 - 2 = Low Risk Oriented to surroundings, Maintained a safe environment, Educated pt \T\ family on fall prevention, incl call for assistance when getting out of bed, Assessed \T\ reinforced patient's understanding of fall precautions, Provided non-skid footwear, Hourly rounding (assess needs \T\ fall precautionary measures) done, Used ambulatory aids as needed (educated on \T\ assisted with), Used gait belt as appropriate. Abuse screen: Denies threats or abuse. Denies injuries from another. Nutritional screening: No deficits noted. Tuberculosis screening: No symptoms or risk factors identified. Assessment: 18:28 General: Appears in no apparent distress. comfortable, Behavior is calm, cooperative, ld1 appropriate for age. Pain: Complains of pain in left foot Pain does not radiate. Pain currently is 7 out of 10 on a pain scale. Quality of pain is described as throbbing, Pain began 2-3 days ago. Is continuous. Neuro: Level of Consciousness is awake, alert, obeys commands, Oriented to person, place, time, situation, Appropriate for age. Cardiovascular: Capillary refill < 3 seconds Patient's skin is warm and dry. Respiratory: Airway is patent Respiratory effort is even, unlabored. GI: Abdomen is round non-distended. : No signs and/or symptoms were reported regarding the genitourinary system. EENT: No signs and/or symptoms were reported regarding the EENT system. Derm: No signs and/or symptoms reported regarding the dermatologic system. Musculoskeletal: No signs and/or symptoms reported regarding the musculoskeletal system. 19:03 Reassessment: Patient appears in no apparent distress at this time. Patient and/or bm8 family updated on plan of care and expected duration. Pain level reassessed. Patient is alert, oriented x 3, equal unlabored respirations, skin warm/dry/pink. Pain: Complains of pain in left foot Pain currently is 4 out of 10 on a pain scale. Neuro: Level of Consciousness is awake, alert, obeys commands, Oriented to person, place, time, situation, Appropriate for age. Cardiovascular: Denies chest pain, Capillary refill < 3 seconds Patient's skin is warm and dry. Respiratory: Airway is patent Trachea midline Respiratory effort is even, unlabored, Respiratory pattern is regular, symmetrical. Vital Signs: 16:54 BP 108 / 74; Pulse 83; Resp 17; Temp 98.2; Pulse Ox 100% ; dd2 18:28 BP 116 / 69; Pulse 84; Resp 18; Pulse Ox 100% on R/A; ld1 19:28 BP 121 / 70; Pulse 80; Resp 18; Temp 98.2; Pulse Ox 100% ; Pain 4/10; bm8 19:28 Pain Scale: Adult bm8 [place] Coma Score: 19:28 Eye Response: spontaneous(4). Motor Response: obeys commands(6). Verbal Response: bm8 oriented(5). Total: 15. ED Course: 16:30 Patient arrived in ED. mg5 16:32 Kiran Dwyer MD is Attending Physician. ec2 16:58 Triage completed. dd2 16:58 Arm band placed on left wrist. Patient placed in waiting room, in view of staff dd2 members, Patient notified of wait time. 17:23 Chyna Lugo RN is Primary Nurse. ph 17:45 Foot Left 3 View XRAY In Process Unspecified. EDMS 18:28 Patient has correct armband on for positive identification. Placed in gown. Bed in low ld1 position. Call light in reach. Side rails up X2. cardiac monitor on. Pulse ox on. NIBP on. Door closed. Visitors limited. Warm blanket given. 18:28 No provider procedures requiring assistance completed. ld1 19:03 Provided Education on: post er care. bm8 19:28 Patient did not have IV access during this emergency room visit. bm8 Administered Medications: 17:23 Not Given (tetanus UTD): boostrix tdap0.5 ml IM once; as a single dose ph 17:46 Drug: Trimethoprim-Sulfamethoxazole PO (160 mg-800 mg (DS) 1 tablet PO once Route: PO; ph 19:03 Follow up: Response: No adverse reaction bm8 Medication: 18:28 VIS not applicable for this client. ld1 Outcome: 19:06 Discharge ordered by . ec2 19:28 Discharged to home ambulatory, bm8 19:28 Condition: stable 19:28 Discharge instructions given to patient, Instructed on discharge instructions, follow up and referral plans. Demonstrated understanding of instructions, follow-up care, medications, Prescriptions given X 1, 19:29 Patient left the ED. bm8 Signatures: Dispatcher [employer] FRANKNV Chyna Lugo RN RN ph Natalie Lockett RN RN ld1 Joi Schneider mg5 Kiran Dwyer MD MD ec2 Alvarado Andres RN RN bm8 PHILLIP BENITO, RN RN dd2
--- NOTE | 2023-10-03 19:08 | RAD REPORT ---
EXAM DESCRIPTION: RAD - Foot Left 3 View - 10/03/2023 5:44 pm CLINICAL HISTORY: stepped fb COMPARISON: No comparisons TECHNIQUE: Left foot, 3 views. FINDINGS: No fracture, dislocation or periosteal reaction. Small calcaneal spur. No air or foreign body in the soft tissues. IMPRESSION: No acute findings. Small calcaneal spur.
[2023-10-03 20:09] VITALS: TEMP 98.2; O2SAT 100
[2023-10-03 20:13] VITALS: BP 121/70
== END 2023-10-03 19:29 | disposition home or self-care (01) ==
LOC: ER 16:25
DX: S91.332A Puncture wound without foreign body, left foot, initial encounter (principal); W45.0XXA Nail entering through skin, initial encounter; E11.9 Type 2 diabetes mellitus without complications; I10 Essential (primary) hypertension; K21.9 Gastro-esophageal reflux disease without esophagitis; Z86.711 Personal history of pulmonary embolism; Z87.891 Personal history of nicotine dependence
CPT/HCPCS: 99284